=== PATIENT | male | born 1960 | race Caucasian/White ===

== ENCOUNTER 2021-09-10 06:35 | Outpatient (CLI) | payer MEDICARE, SELFPAY ==
--- NOTE | 2021-09-17 09:46 | WPDNEUROLOGY ---
Neurology EEG Report General Information Date of Study: 09/10/21 TEST eeg DIAGNOSIS Memory impairment CONDITION OF RECORDING awake drowsy and sleep EEG NUMBER [id number] CLINICAL HISTORY memory impairment EEG DESCRIPTION basic resting occipital frequency consists of low-voltage 8 to 9 hertz per 2nd alpha activity admixed with minimal amount of low-voltage 15 to 18 hertz per 2nd beta activity. Bilateral symmetrical sleep activity seen during sleep. Multiple movement artifacts are noted throughout the tracing. Hyperventilation not done. Photic stimulation produced normal drive. Non paroxysmal. Nonfocal. Nonlateralizing. IMPRESSION No significant abnormalities noted .
== END 2021-09-10 06:36 | disposition home or self-care (01) ==
PROVIDERS: PCP Internal Medicine; Visit Provider Psychiatry & Neurology Neurology
DX: R41.3 Other amnesia (principal)
CPT/HCPCS: 95816

== ENCOUNTER 2021-09-15 08:31 | Outpatient (CLI) | payer MEDICARE, SELFPAY ==
--- NOTE | ~2021-09-15 | MR_ITS ---
EXAMINATION: MR brain/brain stem wo/w con DATE: 09/17/2021 08:10 INDICATION: Memory impairment. Cerebral palsy. TECHNIQUE: Magnetic resonance imaging (MRI) of the brain and brainstem was performed without and with 14 mL MultiHance intravenous contrast. COMPARISON: None. FINDINGS: There are scattered areas of nonspecific increased T2-weighted signal intensity in the cere bral white matter, which is within normal limits for the patient's age. There is chronic encephalomal acia in anterior right frontal lobe. There is no intracranial hemorrhage, acute infarction, or abnorm al intracranial mass lesion. The ventricles are normal in size for the degree of diffuse brain volume loss. The orbits are normal. The paranasal sinuses are clear. The mastoid air cells are normal. IMPRESSION: 1. Chronic encephalomalacia in anterior right frontal lobe. Reviewed, dictated and finalized at location A.
== END 2021-09-15 08:32 | disposition home or self-care (01) ==
PROVIDERS: PCP Internal Medicine; Visit Provider Psychiatry & Neurology Neurology
DX: R41.3 Other amnesia (principal); G93.89 Other specified disorders of brain
CPT/HCPCS: 70553; A9577

== ENCOUNTER 2022-10-23 00:21 | Day surgery (SDC) | payer MEDICARE, MEDICAID, SELFPAY ==
[2022-10-15 12:24] VITALS: BMI 21.9
--- NOTE | 2022-10-22 18:09 | PM.HPGS ---
History of Present Illness History of Present Illness Consent: Risks, benefits, and alternatives have been discussed and questions answered. Patient agrees to proceed with procedure. Chief complaint: neoplasm screening Narrative: Jas Gutierrez Jr. is a 61 year old male Referred for colon cancer screening. Review of Systems Review of Systems: All systems reviewed & are unremarkable except as noted in HPI and below PMFSH Past Medical History Medical History Benign prostatic hyperplasia Cerebral palsy Depression Diabetes mellitus, type II GERD (gastroesophageal reflux disease) Heart disease Hyperlipidemia Hypertension Hypothyroidism Social History Social History Social History: never smoker Smoking status: Never smoker Alcohol intake: never Substance use: never Substance use type: does not use Lack of Transportation: No Lack of Food: Never True Current Housing: I Have Housing Concerned About Future Housing: No Difficulty Paying Gas/Electric Bills: No Difficulty Paying for Meds: No Currently Unemployed: No Education: High School Diploma/GED Difficulty w/ Childcare or Family Care: No Living arrangements: with family Spiritual care concerns: No Meds Home Medications and Allergies Home Medications Medication Instructions Recorded Confirmed Type atorvastatin 80 mg tablet 80 mg PO DAILY 08/21/21 10/15/22 History clopidogrel 75 mg tablet 75 mg PO DAILY 08/21/21 10/15/22 History divalproex 500 mg tablet,extended 500 mg PO DAILY 08/21/21 10/15/22 History release 24 hr empagliflozin 10 mg tablet 10 mg PO DAILY 08/21/21 10/15/22 History (Jardiance) ezetimibe 10 mg tablet 10 mg PO DAILY 08/21/21 10/15/22 History finasteride 5 mg tablet 5 mg PO DAILY 08/21/21 10/15/22 History fluoxetine 40 mg capsule 40 mg PO DAILY 08/21/21 10/15/22 History lisinopril 5 mg tablet 5 mg PO DAILY 08/21/21 10/15/22 History metformin 500 mg tablet 500 mg PO BID 08/21/21 10/15/22 History nebivolol 5 mg tablet 5 mg PO DAILY 08/21/21 10/15/22 History olanzapine 5 mg tablet 5 mg PO DAILY 08/21/21 10/15/22 History pantoprazole 40 mg tablet,delayed 40 mg PO DAILY 08/21/21 10/15/22 History release levothyroxine 100 mcg tablet 100 mcg PO DAILY 10/15/22 10/15/22 History Allergies Allergy/AdvReac Type Severity Reaction Status Date / Time latex Allergy Intermediate Rash Verified 10/23/22 06:55 Exam Const: General: alert Orientation/consciousness: patient oriented x3 Resp: Auscultation: clear to auscultation bilaterally Cardio: Rhythm: regular rhythm GI: GI Palp: Yes Soft to palpation and No Tenderness to palpation present (GI) Neuro: General: patient oriented x3 Assessment and Plan Assessment and plan (1) Colon cancer screening: Code(s): Z12.11 - Encounter for screening for malignant neoplasm of colon Status: Acute Assessment and Plan: Colonoscopy with possible biopsy or polypectomy or cautery or injection of substances.
[2022-10-23 06:57] VITALS: BP 151/84; PULSE 65; RESP 18; TEMP 36; O2SAT 98
[2022-10-23] MEDS: LACTATED RINGERS 1,000 ML 150 ML IV CONT (07:09)
[2022-10-23 07:11] LABS: Glucose Point of Care 136 mg/dl (65-105)
--- NOTE | 2022-10-23 07:43 | WPDANESEPPF ---
Anes - Initial Pre Proc Eval Procedure: Operation Date: 10/23/22 08:00 Proposed Procedures p Screening Colonoscopy - Justin Castillo MD Date/Time: 10/23/22 07:43 Surgeon: Justin Castillo MD Pre Op Diagnosis: neoplasm screening Patient Data Age: 61 Gender: M Height: 1.7 m Weight: 65.8 kg Last Vital Signs Temp 36.0 C L 10/23/22 06:57 Pulse 65 10/23/22 06:57 Resp 18 10/23/22 06:57 BP 151/84 H 10/23/22 06:57 Pulse Ox 98 10/23/22 06:57 O2 Del Method Room Air 10/23/22 06:57 Allergies Allergy/AdvReac Type Severity Reaction Status Date / Time latex Allergy Intermediate Rash Verified 10/23/22 06:55 Home Medications Medication Instructions Recorded Confirmed Type atorvastatin 80 mg tablet 80 mg PO DAILY 08/21/21 10/15/22 History clopidogrel 75 mg tablet 75 mg PO DAILY 08/21/21 10/15/22 History divalproex 500 mg tablet,extended 500 mg PO DAILY 08/21/21 10/15/22 History release 24 hr empagliflozin 10 mg tablet 10 mg PO DAILY 08/21/21 10/15/22 History (Jardiance) ezetimibe 10 mg tablet 10 mg PO DAILY 08/21/21 10/15/22 History finasteride 5 mg tablet 5 mg PO DAILY 08/21/21 10/15/22 History fluoxetine 40 mg capsule 40 mg PO DAILY 08/21/21 10/15/22 History lisinopril 5 mg tablet 5 mg PO DAILY 08/21/21 10/15/22 History metformin 500 mg tablet 500 mg PO BID 08/21/21 10/15/22 History nebivolol 5 mg tablet 5 mg PO DAILY 08/21/21 10/15/22 History olanzapine 5 mg tablet 5 mg PO DAILY 08/21/21 10/15/22 History pantoprazole 40 mg tablet,delayed 40 mg PO DAILY 08/21/21 10/15/22 History release levothyroxine 100 mcg tablet 100 mcg PO DAILY 10/15/22 10/15/22 History Laboratory Tests 10/23/22 07:07 POC Capillary Glucose 136 H mg/dl (65-105) Patient hx anesthesia problems: none Family hx anesthesia problems: none Results Review: All pre-operative results and documents have been reviewed as part of the pre-operative evaluation. [facility] Past Medical History Medical History Benign prostatic hyperplasia Cerebral palsy Depression Diabetes mellitus, type II GERD (gastroesophageal reflux disease) Heart disease Hyperlipidemia Hypertension Hypothyroidism Social History Social History Social History: never smoker Smoking status: Never smoker Alcohol intake: never Substance use: never Substance use type: does not use Lack of Transportation: No Lack of Food: Never True Current Housing: I Have Housing Concerned About Future Housing: No Difficulty Paying Gas/Electric Bills: No Difficulty Paying for Meds: No Currently Unemployed: No Education: High School Diploma/GED Difficulty w/ Childcare or Family Care: No Living arrangements: with family Spiritual care concerns: No Anes - Eval Final PreProcedure Day of Procedure 10/23/22 07:43 Patient weight: normal Heart: regular rate and rhythm Lungs: clear to auscultation Airway: Mallampati scale class II Neurological: other (alert) Last oral intake: >/= 8 hours ASA classification: IV Emergent: no Anesthetic plan: proceed Anesthesia type and monitoring: general GIVS and standard monitoring Results Review: All pre-operative results and documents have been reviewed as part of the pre-operative evaluation. Informed Consent: The patient's anesthetic plan and its attendant risks and benefits were discussed with the patient/family/POA. Questions were solicited and answers provided to the satisfaction of the patient/family/POA.
[2022-10-23 08:09] VITALS: BP 93/68; PULSE 70; RESP 19; O2SAT 95
[2022-10-23 08:19] VITALS: BP 118/76; PULSE 74; RESP 19; O2SAT 96
[2022-10-23 08:29] VITALS: BP 140/84; PULSE 76; RESP 16; O2SAT 95
== END 2022-10-23 08:40 | disposition home or self-care (01) ==
PROVIDERS: PCP Internal Medicine; Visit Provider Internal Medicine Gastroenterology
PROC: 0DJD8ZZ Inspection of Lower Intestinal Tract, Via Natural or Artificial Opening Endoscopic (ICD-10-PCS; CPT 45378; principal; 2022-10-23 08:00)
DX: Z12.11 Encounter for screening for malignant neoplasm of colon (principal); E11.9 Type 2 diabetes mellitus without complications; E78.5 Hyperlipidemia, unspecified; E03.9 Hypothyroidism, unspecified; I11.9 Hypertensive heart disease without heart failure; K21.9 Gastro-esophageal reflux disease without esophagitis; G80.9 Cerebral palsy, unspecified; F32.A Depression, unspecified; N40.0 Benign prostatic hyperplasia without lower urinary tract symptoms; Z79.02 Long term (current) use of antithrombotics/antiplatelets; Z79.84 Long term (current) use of oral hypoglycemic drugs
CPT/HCPCS: G0121; 82948; J7120

== ENCOUNTER 2023-09-10 16:38 | Outpatient (CLI) | payer MEDICARE, MEDICAID, SELFPAY ==
--- NOTE | ~2023-09-10 | US_ITS ---
EXAMINATION: US carotid duplex BI DATE: 09/10/2023 17:11 INDICATION: Cerebral infarction TECHNIQUE: Grayscale, color Doppler, and pulsed Doppler images of the cervical carotid arteries were obtained. The degree of vessel stenosis is placed in one of the following categories: normal, <50%, 5 0-69%, >=70% but less than near-occlusion, near-occlusion, or total occlusion. Note that percent sten osis relative to normal distal artery lumen diameter is indirectly measured from velocity measurement s as described by Ang, et al. Radiology 2003; 229:340-346. COMPARISON: None. FINDINGS: RIGHT: The right common carotid artery (CCA) peak systolic velocity (PSV) is 78 cm/s. The right internal car otid artery (ICA) PSV is 63 cm/s. The right ICA end-diastolic velocity (EDV) is 26 cm/s. The right IC A/CCA PSV ratio is 0.8. Grayscale and color Doppler images yield an estimate of <50% diameter reducti on from plaque in the ICA. The external carotid artery (ECA) PSV is 73 cm/s. There is antegrade flow in the right vertebral artery. LEFT: The left CCA PSV is 75 cm/s. The left ICA PSV is 74 cm/s. The left ICA EDV is 23 cm/s. The left ICA/C CA PSV ratio is 1.0. Grayscale and color Doppler images yield an estimate of <50% diameter reduction from plaque in the ICA. The ECA PSV is 109 cm/s. There is antegrade flow in the left vertebral artery . IMPRESSION: 1. <50% stenosis in the right internal carotid artery. 2. <50% stenosis in the left internal carotid artery. Reviewed, dictated and finalized at location A.
== END 2023-09-10 16:39 | disposition home or self-care (01) ==
LOC: ANHIMG 16:38
PROVIDERS: PCP Internal Medicine; Visit Provider Psychiatry & Neurology Neurology
DX: I65.23 Occlusion and stenosis of bilateral carotid arteries (principal); I63.9 Cerebral infarction, unspecified; R26.9 Unspecified abnormalities of gait and mobility; R41.3 Other amnesia
CPT/HCPCS: 93880

== ENCOUNTER 2024-04-15 09:07 | Outpatient (CLI) | payer MEDICARE, MEDICAID, SELFPAY ==
--- OUTSIDE RECORDS SUMMARY | 2024-04-15 09:51 | XMS_ITS | Encounter Summary ---
Author Organization [facility] Healthcare Address [address] [place] [address] Care Team Providers Care Casing Splitter Name Role Phone Kade Pope MD Primary Care Provider Encounter Details Date Type Department Care Team (Late st Contact Info) Description 01/07/2020 Telephone [facility] Radiology [address] [place] [address] Michel Porras MD [address] [facility] [address] [place] [address] Social History Tobacco Use Types Packs/Day Years Used Date Smoking Tobacco: Never Smokeless Tobacco: Never Alcohol Use Standard Drinks/Week Comments No 0 (1 standard drink = 0.6 oz pur e alcohol) Sex and Gender Information Value Date Recorded Sex Assigned at Not on file Legal Sex Male 2:01 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
--- OUTSIDE RECORDS SUMMARY | 2024-04-15 09:52 | XMS_ITS | CONTINUITY OF CARE DOCUMENT ---
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 EF70, nl stress nuclear 07/24 active Milka White NP DIABETES MELLITUS completed - Yoana Salinas MD DIABETES MELLITUS, TYPE II, CONTROLLED W/ VASCULAR COMPLICATIONS completed - Yoana Salinas MD HTN essential--echo ef nl, 08/2022 active Yoana Salinas MD Sleep apnea - no CPAP due to psychiatric issues active Yoana Salinas MD Subarachnoid hemorrhage sec to trauma active Yoana Salinas MD Dementia active Yoana Salinas MD Diabetes mellitus active Yoana Salinas MD Aortic valve sclerosis active Yoana Salinas MD Prostate cancer active Luis Rodriguez Cardiology examination active Yusuf Todd Diabetes Mellitus, Type II, controlled w/ vascular complications completed - Yoana Salinas MD Preop exam completed - Yoana Salinas MD CHEST PAIN-06/16 CATHTOMAS Barrow ANOMOLOUS CIRC completed - Yoana Salinas MD HTN-03/25 ECHO EF 74 completed - Yoana Leslie CAD- Lad stent 2010. 40% MID,DISTAL RCA. EF70., nl stress nuclear 07/24 completed - Milka White NP ENCOUNTERS Date Type Provider Location Encounter Diag nosis - In-person encounter Office Visit Yoana Salinas MD [place] [facility] Cardiology examination - In-person encounter Office Visit Yoana Salinas MD [facility] - In-person encounter Office Visit Yoana Salinas MD [facility] HTN essential--echo ef nl, 08/2022 - In-person encounter Office Visit Yoana Salinas MD [facility] - In-person encounter Office Visit Yoana Salinas MD [facility] - In-person encounter Office Visit Yoana Salinas MD [facility] HTN essential--echo ef nl, 08/2022 - In-person encounter Office Visit Yoana Salinas MD [facility] HTN essential--echo ef nl, 08/2022 - In-person encounter Office Visit Yoana Salinas MD [facility] - In-person encounter Office Visit Yoana Salinas MD [facility] Prostate cancer - In-person encounter Office Visit Yoana Salinas MD [facility] Sleep apnea - no CPAP due to psychiatric issues - In-person encounter Office Visit Yoana Salinas MD [facility] - In-person encounter Office Visit Yoana Salinas MD [facility] Diabetes Mellitus, Type II, controlled w/ vascular complications - In-person encounter Office Visit Yoana Salinas MD [facility] DIABETES MELLITUS, TYPE II, CONTROLLED W/ VASCULAR COMPLICATIONSPreop examDiabetes mellitusAortic valve sclerosis - In-person encounter Office Visit Yoana Salinas MD [facility] CAD - LAD stent 2010, 40% MID,DISTAL RCA. EF70, nl stress nuclear 07/24 - In-person encounter Office Visit Yoana Salinas MD [facility] Subarachnoid hemorrhage sec to traumaDementia - In-person encounter Office Visit Yoana Salinas MD [facility] - In-person encounter Office Visit Yoana Salinas MD [facility] - In-person encounter Office Visit Yoana Salinas MD [facility] HTN-03/25 ECHO EF 74HypercholesterolemiaCAD-07/21 NUC EF 66 03/22 NUCCHEST PAIN-06/16 CATHDIFFUE DS ANOMOLOUS CIRCDIABETES MELLITUSHTN essential--echo ef nl, 08/2022Sleep apnea - no CPAP due to psychiatric issues - In-person encounter Office Visit Yoana Salinas MD [facility] - In-person encounter Office Visit Yoana Salinas MD [facility] - In-person encounter Office Visit Yoana Salinas MD [facility] - In-person encounter Office Visit Yoana Salinas MD [facility] - In-person encounter Office Visit Yoana Salinas MD [facility] - In-person encounter Office Visit Yoana Salinas MD [facility] - In-person encounter Office Visit Yoana Salinas MD [facility] - In-person encounter Office Visit Ariel Fam MD [facility] CAD - LAD stent 2010, 40% MID,DISTAL RCA. EF70, nl stress nuclear 07/24 - In-person encounter Office Visit Yoana Salinas MD [facility] - In-person encounter Office Visit Yoana Salinas MD [facility] - In-person encounter Office Visit Tirso Mccullough MD [facility] - In-person encounter Office Visit Yoana Salinas MD [facility] - In-person encounter Office Visit Yoana Salinas MD [facility] - In-person encounter Office Visit Yoana Salinas MD [facility] - In-person encounter Office Visit Yoana Salinas MD [facility] - In-person encounter Office Visit Tirso Mccullough MD [facility] Hypercholesterolemia - In-person encounter Office Visit Tirso Mccullough MD [facility] - In-person encounter Office Visit Yoana Salinas MD [facility] CAD- Lad stent 2010. 40% MID,DISTAL RCA. EF70., nl stress nuclear 07/24ANXIETY DISORDER GENERALIZEDHYPERTHYROIDISM VITAL SIGNS Date Observation Value Provider Body Mass Index (Ratio) 22.39 kg/m2 Yusuf Todd blood pressure, diastolic 85 mm[Hg] Edenilson Carrasquillo blood pressure, systolic 151 mm[Hg] Debra Carrasquillo oxygen saturation, oximetry 96 % Farzaneh Carrasquillo pulse rate 80 /min Farzaneh Carrasquillo respiratory rate E&M 12 /min Farzaneh Carrasquillo weight E&M 143 [lb_av] Farzaneh Carrasquillo height E&M 67 [in_i] Farzaneh Carrasquillo blood pressure, cuff size regular An anabella Carrasquillo Body Mass Index (Ratio) 22.55 kg/m2 Corona Salinas MD weight E&M 144 [lb_av] Linn [place] pulse rate 83 /min Linn [place] blood pressure, cuff size regular Amarjit bansal [place] blood pressure, diastolic 87 mm[Hg] Ta sharlaha [place] blood pressure, systolic 139 mm[Hg] Tab itha [place] oxygen saturation, oximetry 98 % Linn [place] respiratory rate E&M 12 /min Linn [place] height E&M 67 [in_i] [facility] Body Mass Index (Ratio) 21.92 kg/m2 [facility], cuff size regular [facility] blood pressure, diastolic 79 mm[Hg] [facility] blood pressure, systolic 140 mm[Hg] [facility] oxygen saturation, oximetry 96 % [facility] respiratory rate E&M 15 /min Jazmyne Dotson iller pulse rate 97 /min [facility] weight E&M 140 [lb_av] [facility] height E&M 67 [in_i] [facility] Body Mass Index (Ratio) 22.65 kg/m2 Corona Salinas MD blood pressure, diastolic 99 mm[Hg] [facility] blood pressure, systolic 142 mm[Hg] [facility] pulse rate 88 /min [facility] oxygen saturation, oximetry 97 % [facility] weight E&M 144.6 [lb_av] [facility] Body Mass Index (Ratio) 25.37 kg/m2 Corona Salinas MD blood pressure, diastolic 77 mm[Hg] Joel Barillas blood pressure, systolic 103 mm[Hg] Soraya Souzaelder blood pressure, cuff size regular Ke miah Stewarter oxygen saturation, oximetry 96 % Mariela Souzaelder respiratory rate E&M 14 /min Mariela beachnfelder pulse rate 76 /min Mariela Souzae lder weight E&M 162 [lb_av] Mariela Venturanenfe lder height E&M 67 [in_i] Mariela Romero er Body Mass Index (Ratio) 25.06 kg/m2 Corona Salinas MD blood pressure, cuff size large Stefanie williamle [place] blood pressure, diastolic 60 mm[Hg] Mi dave [place] blood pressure, systolic 140 mm[Hg] [facility] rajani [place] oxygen saturation, oximetry 97 % Salina Vivas respiratory rate E&M 16 /min Mahsa Vivas pulse rate 71 /min Salina leslie weight E&M 160 [lb_av] Salina leslie height E&M 67 [in_i] Salina leslie Body Mass Index (Ratio) 25.06 kg/m2 Trac darlin Sebastianly blood pressure, diastolic 80 mm[Hg] Li nkLogic blood pressure, systolic 110 mm[Hg] Porsche kLogic blood pressure, cuff size large Tr herb Mccain blood pressure, diastolic 80 mm[Hg] Tr herb Mccain blood pressure, systolic 110 mm[Hg] Try peterson Mccain oxygen saturation, oximetry 97 % Armando Mccain respiratory rate E&M 18 /min Trypeterson Mccain pulse rate 65 /min Trypeterson Mccain weight E&M 160 [lb_av] Armando Mccain height E&M 67 [in_i] Armando Mccain Body Mass Index (Ratio) 25.68 kg/m2 Corona Salinas MD blood pressure, diastolic 74 mm[Hg] Br dewey Em blood pressure, systolic 120 mm[Hg] Martha massiel Strickland weight E&M 164 [lb_av] Yoana Salinas MD height E&M 67 [in_i] Yoana Salinas MD Body Mass Index (Ratio) 25.84 kg/m2 Servando Rodriguez blood pressure, cuff size large Ke rri Lorenzonesophia blood pressure, diastolic 80 mm[Hg] Ke rri Irajuenerashinortheastern [facility] hospitalqu[facility] blood pressure, systolic 122 mm[Hg] Soraya Barillas oxygen saturation, oximetry 96 % Mariela Nargis respiratory rate E&M 16 /min Mariela Mia munoz pulse rate 73 /min Mariela Nick [facility] weight E&M 165 [lb_av] Mariela Nick [facility] height E&M 67 [in_i] Mariela Nick [facility] Body Mass Index (Ratio) 26.78 kg/m2 Taseamus Yang blood pressure, diastolic 88 mm[Hg] Rh imani Barber blood pressure, systolic 132 mm[Hg] Rho dinesh Barber oxygen saturation, oximetry 98 % Elsa Barber pulse rate 75 /min Elsadinesh Barber weight E&M 171 [lb_av] Elsafuad Barber blood pressure, cuff size regular Rh imani Barber temperature site temporal Yohana Tank sley temperature E&M 97.3 [degF] Yohana Tanks [place] respiratory rate E&M 16 /min Elsa Elisabeth height E&M 67 [in_i] Elsa Elisabeth Body Mass Index (Ratio) 27.56 kg/m2 Corona Salinas MD pulse rate 69 /min [facility] blood pressure, diastolic 88 mm[Hg] [facility] blood pressure, systolic 130 mm[Hg] Martha massiel Block oxygen saturation, oximetry 95 % [facility] weight E&M 176 [lb_av] [facility] respiratory rate E&M 16 /min [facility] height E&M 67 [in_i] [facility] Body Mass Index (Ratio) 28.35 kg/m2 Corona Salinas MD blood pressure, cuff size regular Cy jessica Perez blood pressure, diastolic 80 mm[Hg] Cy jessica Perez blood pressure, systolic 124 mm[Hg] Elaine ruthy Perez oxygen saturation, oximetry 97 % Eliza Perez respiratory rate E&M 16 /min Eliza Perez pulse rate 76 /min Eliza Lane l weight E&M 181 [lb_av] Eliza Horowitzbel l height E&M 67 [in_i] Eliza Horowitzbel l Body Mass Index (Ratio) 26.62 kg/m2 Blaire Hunter blood pressure, cuff size regular Ke rri Nargis blood pressure, diastolic 70 mm[Hg] Ke rri Irajuenesophia blood pressure, systolic 120 mm[Hg] Soraya Barillas oxygen saturation, oximetry 98 % Mariela Barillas respiratory rate E&M 18 /min Mariela munoz pulse rate 82 /min Mariela moreland weight E&M 170 [lb_av] Mariela Souzafatou [facility] height E&M 67 [in_i] Mariela Irajborismauricio [facility] Body Mass Index (Ratio) 26.15 kg/m2 Corona Salinas MD blood pressure, cuff size regular Ke rri Nargis blood pressure, diastolic 80 mm[Hg] Ke rri Gruenesophia blood pressure, systolic 130 mm[Hg] Soraya ri Nargis oxygen saturation, oximetry 97 % Mariela Nargis respiratory rate E&M 20 /min Mariela munoz pulse rate 63 /min Mariela Nick [facility] weight E&M 167 [lb_av] Mariela Irajabigaile [facility] height E&M 67 [in_i] Mariela Harleyfatou [facility] Body Mass Index (Ratio) 26.62 kg/m2 Corona Salinas MD blood pressure, resting Yes [facility] blood pressure, diastolic 90 mm[Hg] [facility], systolic 138 mm[Hg] Kil joseph Lovell oxygen saturation, oximetry 98 % [facility] rate E&M 16 /min [facility] pulse rate 76 /min [facility] weight E&M 170 [lb_av] [facility] height E&M 67 [in_i] Fabens Gonzalez Body Mass Index (Ratio) 25.84 kg/m2 Corona Salinas MD blood pressure, cuff size regular Ke rri Nargis blood pressure, diastolic 79 mm[Hg] Ke rri Nargis blood pressure, systolic 138 mm[Hg] Soraya Barillas oxygen saturation, oximetry 98 % Mariela Nargis respiratory rate E&M 16 /min Mariela Bellamy tammy pulse rate 63 /min Mariela Romero [facility] weight E&M 165 [lb_av] Mariela Romero [facility] height E&M 67 [in_i] Mariela Romero [facility] blood pressure, diastolic 98 mm[Hg] Tx kathie Lopez blood pressure, systolic 132 mm[Hg] Adrienne Lopez pulse rate 79 /min Ophelia Lopez respiratory rate E&M 16 /min Ophelia Lopez oxygen saturation, oximetry 95 % Ophelia Lopez Body Mass Index (Ratio) 26.34 kg/m2 Janay acosta John weight E&M 168.2 [lb_av] Ophelia Lopez Body Mass Index (Ratio) 26.94 kg/m2 Janay karla [facility] blood pressure, diastolic 107 mm[Hg] Tx kathie Silva blood pressure, systolic 175 mm[Hg] Adrienne morales Silva pulse rate 80 /min Ophelia Silva oxygen saturation, oximetry 98 % Ophelia Silva respiratory rate E&M 14 /min Ophelia Silva weight E&M 172 [lb_av] Ophelia Silva Body Mass Index (Ratio) 27.41 kg/m2 Anea [facility] blood pressure, diastolic 102 mm[Hg] An [facility], systolic 151 mm[Hg] Ane atris Brown pulse rate 90 /min Aneatris Brown oxygen saturation, oximetry 97 % Aneatris Brown respiratory rate E&M 18 /min Aneatri s Brown weight E&M 175 [lb_av] Aneatris Brown Body Mass Index (Ratio) 28.03 kg/m2 Anea dominguez Brown blood pressure, diastolic 105 mm[Hg] An eatris Brown blood pressure, systolic 155 mm[Hg] Ane atris Salazar pulse rate 81 /min Aneatris Brown oxygen saturation, oximetry 96 % Aneatris Brown respiratory rate E&M 18 /min Aneatri s Salazar weight E&M 179 [lb_av] Aneatris Salazar Body Mass Index (Ratio) 28.14 kg/m2 Janay acosta Silva blood pressure, diastolic 96 mm[Hg] Tx kathie Silva blood pressure, systolic 147 mm[Hg] Adrienne morales Silva pulse rate 70 /min Ophelia Silva oxygen saturation, oximetry 97 % Ophelia Silva respiratory rate E&M 14 /min Ophelia Silva weight E&M 179 [lb_av] Ophelia Silva Body Mass Index (Ratio) 29.17 kg/m2 Amy fuad Freeman blood pressure, diastolic 90 mm[Hg] Amarjit moser Lydia blood pressure, systolic 132 mm[Hg] Maurice olmos Lydia pulse rate 74 /min Cassie Lydia oxygen saturation, oximetry 97 % Cassie Freeman respiratory rate E&M 16 /min Cassie Barrow sonal weight E&M 185.6 [lb_av] Cassie Freeman blood pressure, diastolic 69 mm[Hg] Deacon Finney RN blood pressure, systolic 118 mm[Hg] Lorenzo Finney RN pulse rate 79 /min Lorenzo Finney RN oxygen saturation, oximetry 94 % Lorenzo Finney RN respiratory rate E&M 16 /min Lorenzo lam RN Body Mass Index (Ratio) 28.61 kg/m2 Lorenzo Finney RN weight E&M 182 [lb_av] Lorenzo Finney RN height E&M 67 [in_i] Lorenzo Finney RN blood pressure, diastolic 86 mm[Hg] Ke miah Barillas blood pressure, systolic 122 mm[Hg] Soraya ding Nargis pulse rate 82 /min Mariela Nick uriaser oxygen saturation, oximetry 94 % Mariela Nargis respiratory rate E&M 16 /min Mariela Bellamy tammy weight E&M 181.8 [lb_av] Mariela Harley hernandez blood pressure, diastolic 75 mm[Hg] De nyeajosh Morgan blood pressure, systolic 118 mm[Hg] Den yeedenilson Morgan pulse rate 77 /min Kostayean Morgan oxygen saturation, oximetry 94 % Kostayeedenilson Morgan respiratory rate E&M 16 /min Kostayean Morgan weight E&M 177 [lb_av] Kostayeedenilson Morgan oxygen saturation, oximetry 97 % Cintia Flores MA blood pressure, diastolic 94 mm[Hg] Farzaneh Flores MA blood pressure, systolic 151 mm[Hg] Eli Flores MA pulse rate 57 /min Cintia Flores MA respiratory rate E&M 16 /min Cintia Flores [place] weight E&M 171 [lb_av] Cintia Flores MA weight E&M 179 [lb_av] Yoana Salinas MD blood pressure, diastolic 65 mm[Hg] De zhangeajosh Morgan blood pressure, systolic 96 mm[Hg] Kosta Morgan pulse rate 65 /min Kostayeedenilson Morgan oxygen saturation, oximetry 97 % Kostayeedenilson Morgan respiratory rate E&M 16 /min Kostayean Morgan blood pressure, diastolic 79 mm[Hg] Deacon Finney RN blood pressure, systolic 129 mm[Hg] Lorenzo Finney RN pulse rate 68 /min Lorenzo Finney RN oxygen saturation, oximetry 95 % Lorenzo Finney RN respiratory rate E&M 16 /min Lorenzo lam RN weight E&M 180 [lb_av] Lorenzo Sharmin RN weight E&M 180 [lb_av] Lorenzo Deealexia CRUZ blood pressure, diastolic 75 mm[Hg] De robin Morgan blood pressure, systolic 119 mm[Hg] Kosta Morgan pulse rate 78 /min Kostayeedenilson Morgan oxygen saturation, oximetry 96 % Adamaris Morgan respiratory rate E&M 16 /min Kostayeedenilson Morgan blood pressure, diastolic 75 mm[Hg] De zhagneajosh FonsecaMorgan blood pressure, systolic 130 mm[Hg] Den rhys Morgan pulse rate 78 /min Kostayeedenilson Morgan oxygen saturation, oximetry 95 % Adamaris Morgan respiratory rate E&M 16 /min Kostayeedenilson Morgan weight E&M 182 [lb_av] Adamaris Morgan blood pressure, diastolic 85 mm[Hg] Deacon Finney RN blood pressure, systolic 141 mm[Hg] Lorenzo Finney RN pulse rate 86 /min Lorenzo Finney RN oxygen saturation, oximetry 96 % Lorenzo Finney RN respiratory rate E&M 16 /min Lorenzo lam RN weight E&M 179 [lb_av] Lorenzo Finney RN blood pressure, diastolic 83 mm[Hg] Ma doug O'Patel blood pressure, systolic 123 mm[Hg] Mar issa O'Patel pulse rate 76 /min Lexis O'Patel oxygen saturation, oximetry 95 % Lexis O'Patel respiratory rate E&M 18 /min Lexis O'Patel weight E&M 180 [lb_av] Lexis O'Patel oxygen saturation, oximetry 95 % Candice Francisco blood pressure, diastolic 74 mm[Hg] Danny Francisco blood pressure, systolic 117 mm[Hg] Pat michael weight E&M 180 [lb_av] Candice Nolan blood pressure, diastolic 71 mm[Hg] Edgar Ambriz blood pressure, systolic 114 mm[Hg] Dixon sims Pb pulse rate 77 /min Preethi Ambriz oxygen saturation, oximetry 94 % Preethi Ambriz respiratory rate E&M 18 /min Montana Ambriz weight E&M 178 [lb_av] Preethi Ambriz blood pressure, diastolic, right arm 81 m m[Hg] Roque Manacop blood pressure, systolic, right arm 119 m m[Hg] Roque [place] blood pressure, diastolic 81 mm[Hg] Latisha harrell [place] blood pressure, systolic 119 mm[Hg] Edis land [place] pulse rate 74 /min Roque [place] oxygen saturation, oximetry 96 % Roque [place] respiratory rate E&M 16 /min Roque [place] weight E&M 177 [lb_av] Roque [place] blood pressure, diastolic 86 mm[Hg] Deacon Finney RN blood pressure, systolic 131 mm[Hg] Lorenzo Finney RN pulse rate 106 /min Lorenzo Finney RN oxygen saturation, oximetry 100 % Lorenzo Finney RN respiratory rate E&M 20 /min Lorenzo lam RN weight E&M 166 [lb_av] Lorenzo Fniney RN ALLERGIES Allergy Name Onset Date Reaction Criticality Status LAYTEX Low Criticality active RESULTS Date Observation Value Provider Reference Range Interpretation Location blood glucose, random 278 mg/dL Caryl Frank urea nitrogen, blood 15 mg/dL Caryl Frank platelet count 241 10*3/mm3 Caryl Frank hematocrit, blood 46.3 % Caryl Frank thyroid stimulating hormone, serum 0.613 u[IU]/mL [facility] alanine aminotransferase (SGPT), serum 60 1/L [facility] aspartate aminotransferase (SGOT), serum 36 1/L [facility] creatinine, serum 1.02 mg/dL [facility] potassium, serum 4.4 mmol/L [facility] sodium, serum 142 mmol/L [facility] blood glucose, random 171 mg/dL [facility] platelet count 306 10*3/mm3 [facility] hematocrit, blood 45.4 % [facility] triglyceride, serum, fasting 104 mg/dL [facility] HDL cholesterol, serum 59 mg/dL [facility] lipoprotein, beta, serum, point, quantitative, calculated 71 mg/dL [facility] cholesterol, serum 151 mg/dL [facility] thyroid stimulating hormone, serum 9.450 u[IU]/mL [facility] B-type natriuretic peptide 8.6 pg/mL [facility] alanine aminotransferase (SGPT), serum 61 1/L [facility] aspartate aminotransferase (SGOT), serum 42 1/L [facility] creatinine, serum 0.94 mg/dL [facility] urea nitrogen, blood 17 mg/dL [facility] potassium, serum 4.7 mmol/L [facility] sodium, serum 142 mmol/L [facility] platelet count 309 10*3/mm3 [facility] hematocrit, blood 46.8 % [facility] triglyceride, serum, fasting 118 mg/dL [facility] HDL cholesterol, serum 60 mg/dL [facility] lipoprotein, beta, serum, point, quantitative, calculated 226 mg/dL [facility] cholesterol, serum 310 mg/dL [facility] alanine aminotransferase (SGPT), serum 43 1/L [facility] aspartate aminotransferase (SGOT), serum 28 1/L [facility] creatinine, serum 0.86 mg/dL [facility] potassium, serum 4.5 mmol/L [facility] sodium, serum 143 mmol/L [facility] platelet count 266 10*3/mm3 [facility] hematocrit, blood 44.7 % [facility] lipoprotein, beta, serum, point, quantitative, calculated 45 mg/dL [facility] cholesterol, serum 120 mg/dL [facility] international normalized ratio (INR) 1.0 [facility] alanine aminotransferase (SGPT), serum 62 1/L [facility] aspartate aminotransferase (SGOT), serum 41 1/L [facility] creatinine, serum 0.90 mg/dL [facility] potassium, serum 4.1 mmol/L [facility] sodium, serum 142 mmol/L [facility] hemoglobin A1C, blood, as % of total hemoglobin 6.7 % [facility] anion gap, serum 8.6 [facility] magnesium, serum 1.8 mg/dL [facility] calcium, serum 9.7 mg/dL [facility] creatine kinase, serum 99 1/L [facility] blood glucose, random 141 mg/dL [facility] estimated glomerular filtration rate >60 [facility] creatinine, serum 1.01 mg/dL [facility] urea nitrogen, blood 11.6 mg/dL [facility] carbon dioxide, venous blood 28 mmol/L [facility] chloride, serum 98 mmol/L [facility] potassium, serum 3.6 mmol/L [facility] sodium, serum 131 mmol/L [facility] erythrocyte sedimentation rate 6 mm/h [facility] platelet count 297 10*3/uL [facility] red blood cell distribution width 12.9 % [facility] mean corpuscular hemoglobin concentration, RBC 34.0 g/dL [facility] mean corpuscular hemoglobin, RBC 30.5 pg [facility] mean corpuscular volume, RBC 89.6 fL [facility] hematocrit, blood 43.2 % [facility] hemoglobin, blood 14.7 g/dL [facility] erythrocyte (RBC) count 4.82 10*6/mm3 [facility] leukocyte count, blood 8.1 10*3/mm3 [facility] thyroid stimulating hormone, serum 0.11 u[IU]/mL [facility] hemoglobin A1C, blood, as % of total hemoglobin 7.9 % [facility] triglyceride, serum, fasting 114 mg/dL [facility] HDL cholesterol, serum 46 mg/dL [facility] LDL cholesterol, serum 140 mg/dL [facility] cholesterol, serum 209 mg/dL [facility] hemoglobin A1C, blood, as % of total hemoglobin 8.2 % [facility] [facility] thyroid stimulating hormone, serum 9.59 u[IU]/mL [facility] globulins, serum, total 3.1 g/dL [facility] triiodothyronine (T3), serum 91 ng/dL [facility] thyroxine, serum, total 5.9 ug/dL [facility] estimated glomerular filtration rate >60 [facility] albumin/globulin ratio, serum 1.4 [facility] protein, total, serum 7.3 g/dL [facility] albumin, serum 4.2 g/dL [facility] bilirubin, serum, total 0.42 mg/dL [facility] alkaline phosphatase, serum 89 1/L [facility] alanine aminotransferase (SGPT), serum 60 1/L [facility] aspartate aminotransferase (SGOT), serum 32 1/L [facility] calcium, serum 9.2 mg/dL [facility] blood glucose, fasting 175 mg/dL [facility] creatinine, serum 0.94 mg/dL [facility] urea nitrogen, blood 15.3 mg/dL [facility] carbon dioxide, serum, total 30 mmol/L [facility] chloride, serum 101 mmol/L [facility] potassium, serum 4.2 mmol/L [facility] sodium, serum 137 mmol/L [facility] platelet count 295 10*3/uL [facility] red blood cell distribution width 13.1 % [facility] mean corpuscular hemoglobin concentration, RBC 33.9 g/dL [facility] mean corpuscular hemoglobin, RBC 31.3 pg [facility] mean corpuscular volume, RBC 92.2 fL [facility] hematocrit, blood 43.9 % [facility] hemoglobin, blood 14.9 g/dL [facility] erythrocyte (RBC) count 4.76 10*6/mm3 [facility] leukocyte count, blood 6.3 10*3/mm3 [facility] thyroid stimulating hormone, serum 0.07 u[IU]/mL [facility] triglyceride, serum, fasting 189 mg/dL [facility] HDL cholesterol, serum 45 mg/dL [facility] LDL cholesterol, serum 135 mg/dL [facility] cholesterol, serum 218 mg/dL [facility] globulins, serum, total 2.8 g/dL [facility] estimated glomerular filtration rate >60 [facility] anion gap, serum 10.0 [facility] albumin/globulin ratio, serum 1.4 [facility] protein, total, serum 6.8 g/dL [facility] albumin, serum 4.0 g/dL [facility] bilirubin, serum, total 0.60 mg/dL [facility] alkaline phosphatase, serum 102 1/L [facility] alanine aminotransferase (SGPT), serum 58 1/L [facility] aspartate aminotransferase (SGOT), serum 22 1/L [facility] calcium, serum 8.9 mg/dL [facility] blood glucose, fasting 131 mg/dL [facility] creatinine, serum 1.04 mg/dL [facility] urea nitrogen, blood 14.7 mg/dL [facility] carbon dioxide, serum, total 29 mmol/L [facility] chloride, serum 105 mmol/L [facility] potassium, serum 4.0 mmol/L [facility] sodium, serum 140 mmol/L [facility] albumin/globulin ratio, serum 1.4 [facility] protein, total, serum 6.7 g/dL [facility] albumin, serum 3.9 g/dL [facility] bilirubin, serum, total 0.70 mg/dL [facility] alkaline phosphatase, serum 120 1/L Estrellita Casa alanine aminotransferase (SGPT), serum 71 1/L [facility] aspartate aminotransferase (SGOT), serum 30 1/L [facility] calcium, serum 9.7 mg/dL Estrellita Casa blood glucose, fasting 112 mg/dL [facility] creatinine, serum 0.73 mg/dL Estrellita Casa urea nitrogen, blood 15 mg/dL [facility] carbon dioxide, serum, total 27 mmol/L [facility] chloride, serum 104 mmol/L [facility] potassium, serum 4.3 mmol/L [facility] sodium, serum 139 mmol/L [facility] triglyceride, serum, fasting 112 mg/dL [facility] HDL cholesterol, serum 39 mg/dL [facility] LDL cholesterol, serum 80 mg/dL Estrellita Casa cholesterol, serum 141 mg/dL Estrellita Cormier RN HISTORY OF MEDICATION USE Medication Status Instructions Dates Provider Indications Com ments atorvastatin 80 mg tablet active TAKE 1 TABLET BY MOUTH EVERY DAY Susan Mcgee atorvastatin 80 mg tablet completed Take 1 tablet by mouth once a day - Susan Mcgee ezetimibe 10 mg tablet completed Take 1 tablet by mouth once a day - Yusuf Todd atorvastatin 80 mg tablet completed TAKE 1 TABLET BY MOUTH EVERY DAY - Mariela Barillas nebivolol 5 mg tablet completed TAKE 1 TABLET BY MOUTH EVERY DAY - Melissa Mueller ezetimibe 10 mg tablet completed TAKE 1 TABLET BY MOUTH EVERY DAY - Mariela Barillas clopidogrel 75 mg tablet active TAKE 1 TABLET BY MOUTH EVERY DAY DIRECTED Linn Kelly metformin 500 mg tablet active twice a day Melissa Mueller pantoprazole 40 mg tablet,delayed release (DR/EC) active Yusuf Todd Jardiance 10 mg tablet active Take 1 tablet by mouth once a day Yusuf Todd clopidogrel 75 mg tablet completed TAKE 1 TABLET BY MOUTH EVERY DAY - Maryellen Pierson clopidogrel 75 mg tablet completed Take 1 tablet by mouth once a day as directed - Lorenzo Finney RN Depakote 500 mg tablet,delayed release (DR/EC) active take one pill at bedtime Mariela Barillas lisinopril 5 mg tablet completed 1 tablet by mouth once a day - Melissa Mueller finasteride 5 mg tablet active Take 1 by mouth every night Mariela Barillas NAMZARIC 14-10 MG ORAL CAPSULE EXTENDED RELEASE 24 HOUR completed take one pill in the am - Mariela Barillas CRESTOR 40 MG ORAL TABLET completed ONE TAB. DAILY - Suzanna Mora RN ezetimibe 10 mg tablet completed Take 1 tablet by mouth once a day - Maryellen Pierson Bystolic 5 mg tablet completed 1 tablet by mouth once a day - Maryellen Pierson Zyprexa 5 mg tablet active 1 tablet by mouth once a day Lorenzo Finney RN VIIBRYD 40 MG ORAL TABLET completed once daily - Mariela Barillas FLOMAX 0.4 MG ORAL CAPSULE completed once daily - Mariela Barlilas OLANZAPINE 5 MG ORAL TABLET completed 1/2 tab twice daily - Mariela Barillas atorvastatin 80 mg tablet completed Take 1 tablet by mouth once a day - Yusuf Todd glimepiride 1 mg tablet active Take 1 by mouth once a day as needed Yusuf Todd LOVAZA CAPSULE completed 2 caps at bedtime - Yoana Salinas MD Ranexa 500 mg tablet extended release 12 hr completed 1 tablet by mouth twice a day - Yusuf Todd LOVAZA CAPS 2GM (AWFVZ-1-ANTE ETHYL ESTERS CAPS) completed DAILY - Lorenzo Finney RN NIASPAN 500 MG ORAL TABLET EXTENDED RELEASE completed AT BEDTIME - Cintia Flores MA clopidogrel 75 mg tablet completed 1 tablet by mouth once a day - Lorenzo Finney RN lorazepam 0.5 mg tablet completed 1 tablet by mouth twice a day as needed - Yusuf Cummingstorreycorrina SIMVASTATIN 40 MG ORAL TABLET completed 1 tablet by mouth daily - Lorenzo Finney RN levothyroxine 100 mcg tablet active tablet by mouth once a day Yusuf Todd ZETIA 10 MG ORAL TABLET completed 1 tablet by mouth daily - Yoana Salinas MD BYSTOLIC 5 MG ORAL TABLET completed ONE TAB PO DAILY - Yoana Salinas MD ASPIRIN 81 MG ORAL TABLET completed 1 tablet by mouth daily - Yoana Salinas MD fluoxetine 40 mg capsule active Take 1 by mouth once a day Mariela Barillas ISOSORBIDE DINITRATE 30 MG ORAL TABLET completed QD - Sloane Tobin RN SIMVASTATIN 40 MG ORAL TABLET completed ONE TAB. DAILY - Sloane Tboin RN ZETIA 10 MG ORAL TABLET completed ONE TAB. DAILY - Sloane Tobin RN SOCIAL HISTORY Date Observation Value Provider drug use none [facility] Never smoker [facility] Yusuftoyin Michael drug use [facility] Never smoker Yusuf Michael physical exercise, f requency, days per week yes Melissa Abbottfatou caffeine use, averag e drinks per day yes Melissa Abbottfatou smoking status Never smoker Melissa Abbottfatou social history E&M Marital Statu s: L manny with family/friends E thnicity: Smoking History: P atient has never smoked. Yoana Salinas MD social history reviewed E&M revi ewed - no changes required Melissa Mueller social history E&M Marital Statu s: L manny with family/friends E thnicity: Smoking History: P peter has never smoked. Yusuf Todd physical exercise, f requency, days per week yes Mariela Nargis caffeine use, averag e drinks per day yes Mariela Nargis smoking status Never smoker Mariela Mayers priscilla social history reviewed E&M revi ewed - no changes required Yoana Salinas MD social history E&M Marital Statu s: L manny with family/friends E thnicity: Smoking History: P peter has never smoked. Yusuf Todd physical exercise, f requency, days per week yes Salina Vivas caffeine use, averag e drinks per day yes Salina Vivas smoking status Never smoker Salina Napoles jhony social history reviewed E&M revi ewed - no changes required Yoana Salinas MD smoking status Never smoker Armando garg social history reviewed E&M revi ewed - no changes required Yusuf Todd social history reviewed E&M revi ewed - no changes required Deborah Strickland social history E&M Marital Statu s: L manny with family/friends E thnicity: Smoking History: P peter has never smoked. Luis Rodriguez social history reviewed E&M revi ewed - no changes required Luis Rodriguez physical exercise, f requency, days per week yes Mariela Nargis caffeine use, averag e drinks per day yes Mariela Nargis smoking status Never smoker Mariela Eliasjosh wells social history E&M Marital Statu s: L manny with family/friends E thnicity: Smoking History: P peter has never smoked. Yoana Salinas MD social history reviewed E&M revi ewed - no changes required Yuli Yang smoking status Never smoker Elsa Barber social history E&M Marital Statu s: L manny with family/friends E thnicity: Smoking History: P peter has never smoked. Yoana Salinas MD social history reviewed E&M revi ewed - no changes required Yoana Salinas MD physical exercise, f requency, days per week yes Deborah Little caffeine use, averag e drinks per day yes Deborah Little smoking status Never smoker Deborah [facility] rafat number of grandchildren Yoana Salinas MD T latha Salinas MD social history E&M Marital Statu s: L manny with family/friends E thnicity: Smoking History: P peter has never smoked. Yoana Salinas MD social history reviewed E&M revi ewed - no changes required Yoana Salinas MD physical exercise, f requency, days per week yes Yoana Salinas MD alcohol use, average drinks per day none Yoana Salinas MD caffeine use, averag e drinks per day yes Yoana Salinas MD drug use none Yoana Salinas MD smoking status Never smoker Yoana Salinas MD social history reviewed E&M revi ewed - no changes required Yoana Salinas MD smoking status Never smoker Mariela wells physical exercise, f requency, days per week yes Mariela Barillas alcohol use, average drinks per day none Mariela Barlilas caffeine use, averag e drinks per day yes Mariela Barillas drug use none Mariela moreland social history reviewed E&M revi ewed - no changes required Yoana Salinas MD physical exercise, f requency, days per week yes Mariela Barillas alcohol use, average drinks per day none Mariela Barillas caffeine use, averag e drinks per day yes Mariela Barillas drug use none Mariela Romero bridgett smoking status Never smoker Mariela wells physical exercise, f requency, days per week yes [facility] alcohol use, average drinks per day none [facility] caffeine use, averag e drinks per day yes [facility] drug use none [facility] smoking status Never smoker [facility] social history reviewed E&M revi ewed - no changes required Yoana Salinas MD physical exercise, f requency, days per week yes Mariela Souzacarriequan alcohol use, average drinks per day none Mariela Barillas caffeine use, averag e drinks per day yes Mariela Barillas drug use none Mariela Romero [facility] smoking status Never smoker Mariela wells social history reviewed E&M revi ewed - no changes required Ophelia Lopez physical exercise, f requency, days per week yes Ophelia Lopez alcohol use, average drinks per day none Opheila Lopez caffeine use, averag e drinks per day yes Ophelia John drug use none Ophelia John smoking status Never smoker Ophelia Lopez social history reviewed E&M revi ewed - no changes required Yoana Salinas MD physical exercise, f requency, days per week yes Ophelia Silva alcohol use, average drinks per day none Ophelia Silva caffeine use, averag e drinks per day yes Ophelia Silva drug use none Ophelia Silva smoking status Never smoker Ophelia moreno social history reviewed E&M revcorrina ewed - no changes required Antoine Lincoln social history reviewed E&M regan ewed - no changes required Yoana Salinas MD social history reviewed E&M reviewed Yoana Salinas MD social history reviewed E&M reviewed Yoana Salinas MD social history reviewed E&M reviewed Lorenzo Finney RN smoking status never smoker Roque Janelawanda liriano social history reviewed E&M reviewed Lorenzo Finney RN social history reviewed E&M reviewed Yoana Salinas MD social history reviewed E&M reviewed Ariel Fam MD drug use none Yoana Salinas MD social history reviewed E&M reviewed Yoana Salinas MD social history reviewed E&M reviewed Lorenzo Finney RN social history reviewed E&M reviewed Lorenzo Finney RN social history reviewed E&M reviewed Lorenzo Finney RN social history reviewed E&M reviewed Lorenzo Finney RN social history reviewed E&M reviewed Lorenzo Finney RN social history reviewed E&M reviewed Tirso Mccullough MD social history reviewed E&M reviewed Lorenzo Finney RN social history E&M Marital Statu s: L manny with family/friends E thnicity: Sloane Tobin RN social history reviewed E&M reviewed Sloane Tobin RN physical exercise, f requency, days per week yes [employer] caffeine use, averag e drinks per day yes [employer] alcohol use, average drinks per day none [employer] smoking status Non-smoker [employer] FUNCTIONAL STATUS Date Observation Value Provider HRA, CV Assess/Plan, Angina (inactive) Management Plan continue current therapy Yusuf Todd HRA, CV Assess/Plan, Angina (inactive) Management Plan continue current therapy Yusuf Todd HRA, CV Assess/Plan, Angina (inactive) Management Plan continue current therapy Yusuf Ahmedzai HRA, CV Assess/Plan, Angina (inactive) Management Plan continue current therapy Yusuf Ahmedzai HRA, CV Assess/Plan, Angina (inactive) Management Plan continue current therapy Yusuf Ahmedzai HRA, CV Assess/Plan, Angina (inactive) Management Plan continue current therapy Deborah Strickland HRA, CV Assess/Plan, Angina (inactive) Management Plan continue current therapy Luis Cormierjak HRA, CV Assess/Plan, Angina (inactive) Management Plan continue current therapy Yuli Yang HRA, CV Assess/Plan, Angina (inactive) Management Plan continue current therapy Yoana Salinas MD HRA, CV Assess/Plan, Angina (inactive) Management Plan continue current therapy Yoana Salinas MD HRA, CV Assess/Plan, Angina (inactive) Management Plan continue current therapy Yoana Salinas MD HRA, CV Assess/Plan, Angina (inactive) Management Plan continue current therapy Yoana Salinas MD HRA, CV Assess/Plan, Angina (inactive) Management Plan continue current therapy Yoana Salinas MD HRA, CV Assess/Plan, Angina (inactive) Management Plan continue current therapy Yoana Salinas MD MENTAL STATUS Date Observation Value Provider assessment of judgme nt and insight E&M Alert and oriented to time, place and person. Mood and affect are normal. Yoana Salinas MD assessment of judgme nt and insight E&M Alert and oriented to time, place and person. Mood and affect are normal. Yoana Salinas MD assessment of judgme nt and insight E&M Alert and oriented to time, place and person. Mood and affect are normal. Lorenzo Finney RN assessment of judgme nt and insight E&M Alert and oriented to time, place and person. Mood and affect are normal. Lorenzo Finney RN assessment of judgme nt and insight E&M Alert and oriented to time, place and person. Mood and affect are normal. Yoana Salinas MD assessment of judgme nt and insight E&M Alert and oriented to time, place and person. Mood and affect are normal. Ariel Fam MD assessment of judgme nt and insight E&M Alert and oriented to time, place and person. Mood and affect are normal. Yoana Salinas MD assessment of judgme nt and insight E&M Alert and oriented to time, place and person. Mood and affect are normal. Yoana Salinas MD assessment of judgme nt and insight E&M Alert and oriented to time, place and person. Mood and affect are normal. Lorenzo Finney RN assessment of judgme nt and insight E&M Alert and oriented to time, place and person. Mood and affect are normal. Lorenzo Finney RN assessment of judgme nt and insight E&M Alert and oriented to time, place and person. Mood and affect are normal. Lorenzo Finney RN assessment of judgme nt and insight E&M Alert and oriented to time, place and person. Mood and affect are normal. Lorenzo Finney RN assessment of judgme nt and insight E&M Alert and oriented to time, place and person. Mood and affect are normal. Lorenzo Finney RN assessment of judgme nt and insight E&M Alert and oriented to time, place and person. Mood and affect are normal. Tirso Mccullough MD assessment of judgme nt and insight E&M Alert and oriented to time, place and person. Mood and affect are normal. Lorenzo Finney RN assessment of judgme nt and insight E&M Alert and oriented to time, place and person. Mood and affect are normal. Sloane Tobin RN FAMILY HISTORY Family Member Condition Mother Family History Unkno wn Father Family History of Co ronary Artery Disease: Father Family History of Di abetes: INSURANCE PROVIDERS Payer name Policy type / Coverage type Michelle red constitution party ID AARP [facility] ADVANTAGE PLAN 2 (HMO-POS) Medicare [id number] HEALTHCARE AND FAMILY SERVICES Medicaid 3 [id number] ADVANCE DIRECTIVES Name Date DISCUSSED - NO DECISION MADE TREATMENT PLAN Date Name Performer [id number], Yoana Salinas MD [id number],C, Yoana Salinas MD [id number],B, Yoana Salinas MD [id number],S, Yoana Salinas MD [id number],B, Yoana Salinas MD [id number],B, Yoana Salinas MD [id number],S, Yusuf Ahmedza i [id number],S, Yusuf Ahmedza i [id number],S, Yusuf Ahmedza i [id number],S, Yusuf Ahmedza i [id number],S, Yusuf Ahmedza i [id number],S, Yusuf Ahmedza i [id number],S, Yusuf Ahmedza i [id number],S, Yusuf Ahmedza i [id number],S, Yusuf Ahmedza i [id number],S, Yusuf Ahmedza i [id number],S, Yusuf Ahmedza i [id number],S, Yusuf Ahmedza i [id number],S, Yusuf Ahmedza i [id number],S, Yusuf Ahmedza i [id number],S, Yusuf Ahmedza i [id number],S, Yusuf Ahmedza i Cardiology Yoana Salinas MD Cardiology: T he following medications were removed from the medication list: Ezetimibe 10 Mg Tablet (Ezetimibe) ..... Take 1 tablet by mouth once a day His updated medication list for this problem includes: Atorvastatin 80 Mg Tablet (Atorvastatin) ..... Take 1 tablet by mouth once a day Yoana Salinas MD Cardiology Yoana Salinas MD Cardiology Yoana Salinas MD Cardiology: H is updated medication list for this problem includes: Glimepiride 1 Mg Tablet (Glimepiride) ..... Take 1 by mouth once a day as needed Metformin 500 Mg Tablet (Metformin) ..... Twice a day Jardiance 10 Mg Tablet (Empagliflozin) ..... Take 1 tablet by mouth once a day Yoana Salinas MD Cardiology: B P today: 151/85 P rior BP: 139/87 (07/28/2023) Labs Reviewed: C reat: 1.02 (07/13/2013) C hol: 151 (03/16/2013) HDL: 59 (03/16/2013) LDL: 71 (03/16/2013) T (03/16/2013) Yoana Salinas MD Cardiology:This visi t has been a part of the consistent, comprehensive, and ongoing management of the chronic medical condition(s) listed above for the patient. His updated medication list for this problem includes: Clopidogrel 75 Mg Tablet (Clopidogrel) ..... Take 1 tablet by mouth every day as directed Yoana Salinas MD Cardiology Yusuf Todd Cardiology: H is updated medication list for this problem includes: Glimepiride 1 Mg Tablet (Glimepiride) ..... Take 1 by mouth once a day Metformin 500 Mg Tablet (Metformin) ..... Twice a day Jardiance 10 Mg Tablet (Empagliflozin) ..... Take 1 tablet by mouth once a day Yusuf Todd Cardiology Yusuf Todd Cardiology Yusuf Todd Cardiology: H is updated medication list for this problem includes: Clopidogrel 75 Mg Tablet (Clopidogrel) ..... Take 1 tablet by mouth every day as directed Yusuf Ahmedzai Cardiology Yusuf Ahmedzai Cardiology Yusuf Ahmedzai Cardiology Yusuf Ahmedzai Cardiology Yusuf Ahmedzai Cardiology Yusuf Ahmedzai Cardiology Yoana Salinas MD Cardiology Yoana Salinas MD Cardiology Yoana Salinas MD Cardiology Yoana Salinas MD Cardiology Yoana Salinas MD Cardiology Yoana Salinas MD Cardiology Yusuf Ahmedzai Cardiology Yusuf Ahmedzai Cardiology Yusuf Ahmedzai Cardiology Yusuf Ahmedzai Cardiology Yusuf Ahmedzai Cardiology Yusuf Ahmedzai Cardiology Yusuf Ahmedzai Cardiology Yusuf Ahmedzai Cardiology Yusuf Ahmedzai Cardiology Yusuf Ahmedzai Cardiology Yusuf Ahmedzai Cardiology Yusuf Ahmedzai Cardiology Yusuf Ahmedzai Cardiology Yusuf Ahmedzai Cardiology Yusuf Ahmedzai Cardiology Yusuf Ahmedzai Cardiology Follow up [facility] Follow up [facility] Follow up [facility] Follow up [facility] Follow up [facility] Yoana Salinas MD Cardiology Yoana Salinas MD Cardiology Yoana Salinas MD Cardiology Yoana Salinas MD Cardiology Yoana Salinas MD Cardiology Yoana Salinas MD Cardiology Yoana Salinas MD Cardiology Yoana Salinas MD Cardiology Tonerick Salinas MD Cardiology Toniamarilis Salinas MD Cardiology follow up Toniya Hadley werner MD Cardiology follow up Toniya Hadley werner MD Cardiology follow up Toniya Hadley werner MD Cardiology Follow up Toniya Hadley werner MD Cardiology Follow up Toniya Hadley werner MD Cardiology Follow up Toniya Hadley werner MD Cardiology Follow up Toniya Hadley werner MD Cardiology Follow up Toniya Hadley werner MD Cardiology Follow up Toniya Hadley werner MD Cardiology Follow up Toniya Hadley werner MD Cardiology Follow up Toniya Hadley werner MD Cardiology Follow up Toniya Hadley werner MD Cardiology Follow up Toniya Hadley werner MD Cardiology follow up Toniya Hadley werner MD Cardiology follow up Toniya Hadley werner MD Cardiology follow up Toniya Hadley werner MD Cardiology follow up Toniya Hadley werner MD Cardiology follow up Toniya Hadley werner MD Cardiology follow up Toniya Hadley werner MD Cardiology Follow up Toniya Hadley werner MD Cardiology Follow up Toniya Hadley werner MD Cardiology Follow up Toniya Hadley werner MD Cardiology Follow up Toniya Hadley werner MD Cardiology Follow up Toniya Hadley werner MD Cardiology Tonerick Salinas MD Cardiology Toniamarilis Salinas MD Cardiology Toniamarilis Salinas MD Cardiology Toniamarilis Salinas MD follow up: H is updated medication list for this problem includes: Crestor 40 Mg Tabs (Rosuvastatin calcium) ..... One tab. daily Zetia 10 Mg Tabs (Ezetimibe) ..... One tab. daily Aspirin 81 Mg Tabs (Aspirin) ..... 1 tablet by mouth daily Clopidogrel Bisulfate 75 Mg Tabs (Clopidogrel bisulfate) ..... 1 tablet by mouth daily Toprol Xl 50 Mg [id number] (Metoprolol succinate) ..... 1/2 tab daily Lipitor 40 Mg Tabs (Atorvastatin calcium) ..... One tab. daily Ranexa 500 Mg Ww12r-[id number] (Ranolazine) ..... One tablet twice daily Yoana Salinas MD follow up: H is updated medication list for this problem includes: Aspirin 81 Mg Tabs (Aspirin) ..... 1 tablet by mouth daily Glimepiride 1 Mg Tabs (Glimepiride) ..... 1/2 tab twice daily Yoana Salinas MD follow up: T he following medications were removed from the medication list: Bystolic 5 Mg Tabs (Nebivolol hcl) ..... One tab po daily His updated medication list for this problem includes: Aspirin 81 Mg Tabs (Aspirin) ..... 1 tablet by mouth daily Clopidogrel Bisulfate 75 Mg Tabs (Clopidogrel bisulfate) ..... 1 tablet by mouth daily Toprol Xl 50 Mg [id number]-[id number] (Metoprolol succinate) ..... 1/2 tab daily Ranexa 500 Mg [id number]-wim (Ranolazine) ..... One tablet twice daily Yoana Salinas MD follow up: H is updated medication list for this problem includes: Aspirin 81 Mg Tabs (Aspirin) ..... 1 tablet by mouth daily Glimepiride 1 Mg Tabs (Glimepiride) ..... 1 tab daily Yoana Salinas MD follow up: T he following medications were removed from the medication list: Bystolic 5 Mg Tabs (Nebivolol hcl) ..... One tab po daily His updated medication list for this problem includes: Aspirin 81 Mg Tabs (Aspirin) ..... 1 tablet by mouth daily Toprol Xl 50 Mg [id number] (Metoprolol succinate) ..... 1/2 tab daily BP today: 151/102 P rior BP: 155/105 (10/26/2013) Labs Reviewed: C reat: 1.02 (07/13/2013) C hol: 151 (03/16/2013) HDL: 59 (03/16/2013) LDL: 71 (03/16/2013) T (03/16/2013) Yoana Salinas MD follow up: T he following medications were removed from the medication list: Bystolic 5 Mg Tabs (Nebivolol hcl) ..... One tab po daily His updated medication list for this problem includes: Toprol Xl 50 Mg Sr98b-[id number] (Metoprolol succinate) ..... 1/2 tab daily Labs Reviewed: T SH: 0.613 (07/13/2013) Total T4: 5.9 (08/22/2010) Total T3: 91 (08/22/2010) Yoana Salinas MD Follow Up: H is updated medication list for this problem includes: Bystolic 5 Mg Tabs (Nebivolol hcl) ..... One tab po daily Aspirin 81 Mg Tabs (Aspirin) ..... 1 tablet by mouth daily B P today: 147/96 P rior BP: 132/90 (12/22/2012) Labs Reviewed: C reat: 0.94 (03/16/2013) C hol: 151 (03/16/2013) HDL: 59 (03/16/2013) LDL: 71 (03/16/2013) T (03/16/2013) Yoana Salinas MD Follow Up: H is updated medication list for this problem includes: Zetia 10 Mg Tabs (Ezetimibe) ..... 1 tablet by mouth daily Lovaza Caps (Vyoyg-9-xiuf ethyl esters caps) ..... 2 caps at bedtime Crestor 40 Mg Tabs (Rosuvastatin calcium) ..... One tab. daily BP today: 147/96 Prior BP: 132/90 (12/22/2012) C HOL: 151 (03/16/2013) LDL: 71 (03/16/2013) HDL: 59 (03/16/2013) T (03/16/2013) Yoana Salinas MD Follow Up: H is updated medication list for this problem includes: Bystolic 5 Mg Tabs (Nebivolol hcl) ..... One tab po daily Labs Reviewed: T SH: 9.450 (03/16/2013) Total T4: 5.9 (08/22/2010) Total T3: 91 (08/22/2010) Yoana Salinas MD Follow Up: H is updated medication list for this problem includes: Bystolic 5 Mg Tabs (Nebivolol hcl) ..... One tab po daily Aspirin 81 Mg Tabs (Aspirin) ..... 1 tablet by mouth daily Clopidogrel Bisulfate 75 Mg Tabs (Clopidogrel bisulfate) ..... 1 tablet by mouth daily Ranexa 500 Mg Xi64i-faq (Ranolazine) ..... One tablet twice daily BP today: 147/96 Prior BP: 132/90 (12/22/2012) N uclear Stress Findings: 1. Regadenoson mediated myocardial perfusion study 2 . Normal left ventricular systolic function with a calculated ejection fraction of 66%. 3 . No obvious significant scintigraphic evidence of myocardial ischemia or scar. 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 Moderate disease involving the circumflex and right coronary artery. Normal left ventricular wall motion and systolic function. EF 60%. - [facility] (12/13/2010) C ardiac Cath Comments: Successful 2.5 x 23mm Promus medicated stent implantation left anterior descending with no residual stenosis, dissection or thrombus formation. - [facility] (12/13/2010) C arotid Doppler/Duplex: Minimal plaque both carotid bifurication. Normal flow pattern. No significant change since 10/11/2009 study. [facility] (01/09/2011) C K: 99 (11/05/2010) CHOL: 151 (03/16/2013) LDL: 71 (03/16/2013) HDL: 59 (03/16/2013) T (03/16/2013) H gb: 14.7 (11/06/2010) HCT: 45.4 (03/16/2013) Platelets: 306 (03/16/2013) R BC: 4.82 (11/06/2010) WBC: 8.1 (11/06/2010) B UN: 17 (03/16/2013) Creat: 0.94 (03/16/2013) Glucose: 171 (03/16/2013) N a+: 142 (03/16/2013) K+: 4.7 (03/16/2013) Cl: 98 (11/05/2010) INR: 1.0 (08/20/2011) T SH: 9.450 (03/16/2013) T3 (total): 91 (08/22/2010) T4 (total): 5.9 (08/22/2010) Yoana Salinas MD Follow Up: H is updated medication list for this problem includes: Aspirin 81 Mg Tabs (Aspirin) ..... 1 tablet by mouth daily Glimepiride 1 Mg Tabs (Glimepiride) ..... 1 tab daily Yoana Salinas MD Follow Up: H is updated medication list for this problem includes: Zetia 10 Mg Tabs (Ezetimibe) ..... 1 tablet by mouth daily Lovaza Caps (Poxip-8-wwqk ethyl esters caps) ..... 2 caps at bedtime Crestor 40 Mg Tabs (Rosuvastatin calcium) ..... One tab. daily BP today: 132/90 Prior BP: 118/69 (03/24/2012) C HOL: 310 (05/06/2012) LDL: 226 (05/06/2012) HDL: 60 (05/06/2012) T (05/06/2012) Yoana Salinas MD Follow Up: H is updated medication list for this problem includes: Zetia 10 Mg Tabs (Ezetimibe) ..... 1 tablet by mouth daily Bystolic 5 Mg Tabs (Nebivolol hcl) ..... One tab po daily Aspirin 81 Mg Tabs (Aspirin) ..... 1 tablet by mouth daily Clopidogrel Bisulfate 75 Mg Tabs (Clopidogrel bisulfate) ..... 1 tablet by mouth daily Ranexa 500 Mg Tb12 (Ranolazine) ..... Half tab. twice daily for chronic angina Lovaza Caps (Qncuo-3-wesm ethyl esters caps) ..... 2 caps at bedtime Crestor 40 Mg Tabs (Rosuvastatin calcium) ..... One tab. daily Yoana Salinas MD Follow Up: H is updated medication list for this problem includes: Bystolic 5 Mg Tabs (Nebivolol hcl) ..... One tab po daily Aspirin 81 Mg Tabs (Aspirin) ..... 1 tablet by mouth daily Clopidogrel Bisulfate 75 Mg Tabs (Clopidogrel bisulfate) ..... 1 tablet by mouth daily Ranexa 500 Mg Tb12 (Ranolazine) ..... Half tab. twice daily for chronic angina BP today: 132/90 Prior BP: 118/69 (03/24/2012) N uclear Stress Findings: 1. Regadenoson mediated myocardial perfusion study 2 . Normal left ventricular systolic function with a calculated ejection fraction of 66%. 3 . No obvious significant scintigraphic evidence of myocardial ischemia or scar. 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 Moderate disease involving the circumflex and right coronary artery. Normal left ventricular wall motion and systolic function. EF 60%. - [facility] (12/13/2010) C ardiac Cath Comments: Successful 2.5 x 23mm Promus medicated stent implantation left anterior descending with no residual stenosis, dissection or thrombus formation. - [facility] (12/13/2010) C arotid Doppler/Duplex: Minimal plaque both carotid bifurication. Normal flow pattern. No significant change since 10/11/2009 study. [facility] (01/09/2011) C K: 99 (11/05/2010) CHOL: 310 (05/06/2012) LDL: 226 (05/06/2012) HDL: 60 (05/06/2012) T (05/06/2012) H gb: 14.7 (11/06/2010) HCT: 46.8 (05/06/2012) Platelets: 309 (05/06/2012) R BC: 4.82 (11/06/2010) WBC: 8.1 (11/06/2010) B UN: 11.6 (11/05/2010) Creat: 0.86 (05/06/2012) Glucose: 141 (11/05/2010) N a+: 143 (05/06/2012) K+: 4.5 (05/06/2012) Cl: 98 (11/05/2010) INR: 1.0 (08/20/2011) T SH: 0.11 (10/11/2010) T3 (total): 91 (08/22/2010) T4 (total): 5.9 (08/22/2010) Yoana Salinas MD Follow Up: H is updated medication list for this problem includes: Aspirin 81 Mg Tabs (Aspirin) ..... 1 tablet by mouth daily Glimepiride 1 Mg Tabs (Glimepiride) ..... 1 tab daily & #13;BP today: 132/90 Prior BP: 118/69 (03/24/2012) Labs Reviewed: H gBA1c: 6.7 (02/13/2011) Creat: 0.86 (05/06/2012) Yoana Salinas MD routine: H is updated medication list for this problem includes: Bystolic 5 Mg Tabs (Nebivolol hcl) ..... One tab po daily Labs Reviewed: T SH: 0.11 (10/11/2010) Total T4: 5.9 (08/22/2010) Total T3: 91 (08/22/2010) Orders: C OMPREHENSIVE METABOLIC PANEL W/EGFR (97417) C BC (INCLUDES DIFF/PLT) (6399) L IPID PANEL (6500) H EMOGLOBIN A1c (496) Yoana Salinas MD routine: H is updated medication list for this problem includes: Zetia 10 Mg Tabs (Ezetimibe) ..... 1 tablet by mouth daily Bystolic 5 Mg Tabs (Nebivolol hcl) ..... One tab po daily Aspirin 81 Mg Tabs (Aspirin) ..... 1 tablet by mouth daily Clopidogrel Bisulfate 75 Mg Tabs (Clopidogrel bisulfate) ..... 1 tablet by mouth daily Ranexa 500 Mg Tb12 (Ranolazine) ..... One tab. twice daily for chronic angina Lovaza Caps (Givob-8-yjzd ethyl esters caps) ..... 2 caps at bedtime Crestor 40 Mg Tabs (Rosuvastatin calcium) ..... One tab. daily Orders: C omplete Echo (CPT-21098) C OMPREHENSIVE METABOLIC PANEL W/EGFR (07794) C BC (INCLUDES DIFF/PLT) (6399) L IPID PANEL (7600) H EMOGLOBIN A1c (496) Yoana Salinas MD routine: H is updated medication list for this problem includes: Bystolic 5 Mg Tabs (Nebivolol hcl) ..... One tab po daily Aspirin 81 Mg Tabs (Aspirin) ..... 1 tablet by mouth daily Clopidogrel Bisulfate 75 Mg Tabs (Clopidogrel bisulfate) ..... 1 tablet by mouth daily Ranexa 500 Mg Tb12 (Ranolazine) ..... One tab. twice daily for chronic angina BP today: / Prior BP: 122/86 (09/17/2011) N uclear Stress Findings: 1. Regadenoson mediated myocardial perfusion study 2 . Normal left ventricular systolic function with a calculated ejection fraction of 66%. 3 . No obvious significant scintigraphic evidence of myocardial ischemia or scar. 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 Moderate disease involving the circumflex and right coronary artery. Normal left ventricular wall motion and systolic function. EF 60%. - [facility] (12/13/2010) C ardiac Cath Comments: Successful 2.5 x 23mm Promus medicated stent implantation left anterior descending with no residual stenosis, dissection or thrombus formation. - [facility] (12/13/2010) Carotid Doppler/Duplex: Minimal plaque both carotid bifurication. Normal flow pattern. No significant change since 10/11/2009 study. [facility] (01/09/2011) C K: 99 (11/05/2010) CHOL: 120 (08/20/2011) LDL: 45 (08/20/2011) HDL: 46 (11/22/2010) T (11/22/2010) H gb: 14.7 (11/06/2010) HCT: 44.7 (08/20/2011) Platelets: 266 (08/20/2011) R BC: 4.82 (11/06/2010) WBC: 8.1 (11/06/2010) BUN: 11.6 (11/05/2010) Creat: 0.90 (08/20/2011) Glucose: 141 (11/05/2010) N a+: 142 (08/20/2011) K+: 4.1 (08/20/2011) Cl: 98 (11/05/2010) INR: 1.0 (08/20/2011) T SH: 0.11 (10/11/2010) T3 (total): 91 (08/22/2010) T4 (total): 5.9 (08/22/2010) Orders: E KG (CPT-94916) C OMPREHENSIVE METABOLIC PANEL W/EGFR (34789) C BC (INCLUDES DIFF/PLT) (6399) L IPID PANEL (7600) H EMOGLOBIN A1c (496) Yoana Salinas MD routine Yoana Salinas MD routine: H is updated medication list for this problem includes: Bystolic 5 Mg Tabs (Nebivolol hcl) ..... One tab po daily Labs Reviewed: T SH: 0.11 (10/11/2010) Total T4: 5.9 (08/22/2010) Total T3: 91 (08/22/2010) Yoana Salinas MD routine: H is updated medication list for this problem includes: Zetia 10 Mg Tabs (Ezetimibe) ..... 1 tablet by mouth daily Bystolic 5 Mg Tabs (Nebivolol hcl) ..... One tab po daily Aspirin 81 Mg Tabs (Aspirin) ..... 1 tablet by mouth daily Clopidogrel Bisulfate 75 Mg Tabs (Clopidogrel bisulfate) ..... 1 tablet by mouth daily Ranexa 500 Mg Tb12 (Ranolazine) ..... One tab. twice daily for chronic angina Lovaza Caps (Sqzdt-2-gtre ethyl esters caps) ..... 2 caps at bedtime Crestor 40 Mg Tabs (Rosuvastatin calcium) ..... One tab. daily Yoana Salinas MD routine: H is updated medication list for this problem includes: Zetia 10 Mg Tabs (Ezetimibe) ..... 1 tablet by mouth daily Bystolic 5 Mg Tabs (Nebivolol hcl) ..... One tab po daily Aspirin 81 Mg Tabs (Aspirin) ..... 1 tablet by mouth daily Clopidogrel Bisulfate 75 Mg Tabs (Clopidogrel bisulfate) ..... 1 tablet by mouth daily Ranexa 500 Mg Tb12 (Ranolazine) ..... One tab. twice daily for chronic angina Lovaza Caps (Hyogn-1-axeu ethyl esters caps) ..... 2 caps at bedtime Crestor 40 Mg Tabs (Rosuvastatin calcium) ..... One tab. daily Yoana Salinas MD routine: H is updated medication list for this problem includes: Bystolic 5 Mg Tabs (Nebivolol hcl) ..... One tab po daily Aspirin 81 Mg Tabs (Aspirin) ..... 1 tablet by mouth daily Clopidogrel Bisulfate 75 Mg Tabs (Clopidogrel bisulfate) ..... 1 tablet by mouth daily Ranexa 500 Mg Tb12 (Ranolazine) ..... One tab. twice daily for chronic angina BP today: / Prior BP: 122/86 (09/17/2011) N uclear Stress Findings: 1. Regadenoson mediated myocardial perfusion study 2 . Normal left ventricular systolic function with a calculated ejection fraction of 66%. 3 . No obvious significant scintigraphic evidence of myocardial ischemia or scar. 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 Moderate disease involving the circumflex and right coronary artery. Normal left ventricular wall motion and systolic function. EF 60%. - [facility] (12/13/2010) C ardiac Cath Comments: Successful 2.5 x 23mm Promus medicated stent implantation left anterior descending with no residual stenosis, dissection or thrombus formation. - [facility] (12/13/2010) Carotid Doppler/Duplex: Minimal plaque both carotid bifurication. Normal flow pattern. No significant change since 10/11/2009 study. [facility] (01/09/2011) C K: 99 (11/05/2010) CHOL: 120 (08/20/2011) LDL: 45 (08/20/2011) HDL: 46 (11/22/2010) T (11/22/2010) H gb: 14.7 (11/06/2010) HCT: 44.7 (08/20/2011) Platelets: 266 (08/20/2011) R BC: 4.82 (11/06/2010) WBC: 8.1 (11/06/2010) BUN: 11.6 (11/05/2010) Creat: 0.90 (08/20/2011) Glucose: 141 (11/05/2010) N a+: 142 (08/20/2011) K+: 4.1 (08/20/2011) Cl: 98 (11/05/2010) INR: 1.0 (08/20/2011) T SH: 0.11 (10/11/2010) T3 (total): 91 (08/22/2010) T4 (total): 5.9 (08/22/2010) Orders: Fatou OCHOA (CPT-72713) Yoana Salinas MD routine: H is updated medication list for this problem includes: Aspirin 81 Mg Tabs (Aspirin) ..... 1 tablet by mouth daily Glimepiride 1 Mg Tabs (Glimepiride) ..... 1 tab daily Yoana Salinas MD follow up: H is updated medication list for this problem includes: Bystolic 5 Mg Tabs (Nebivolol hcl) ..... One tab po daily Yoana Salinas MD follow up: H is updated medication list for this problem includes: Zetia 10 Mg Tabs (Ezetimibe) ..... 1 tablet by mouth daily Bystolic 5 Mg Tabs (Nebivolol hcl) ..... One tab po daily Aspirin 81 Mg Tabs (Aspirin) ..... 1 tablet by mouth daily Plavix 75 Mg Tabs (Clopidogrel bisulfate) ..... One tab. daily Ranexa 500 Mg Tb12 (Ranolazine) ..... One tab. twice daily for chronic angina Lovaza Caps (Kfydh-5-ajxl ethyl esters caps) ..... 2 caps at bedtime Crestor 40 Mg Tabs (Rosuvastatin calcium) ..... One tab. daily Yoana Salinas MD follow up: H is updated medication list for this problem includes: Zetia 10 Mg Tabs (Ezetimibe) ..... 1 tablet by mouth daily Bystolic 5 Mg Tabs (Nebivolol hcl) ..... One tab po daily Aspirin 81 Mg Tabs (Aspirin) ..... 1 tablet by mouth daily Plavix 75 Mg Tabs (Clopidogrel bisulfate) ..... One tab. daily Ranexa 500 Mg Tb12 (Ranolazine) ..... One tab. twice daily for chronic angina Lovaza Caps (Safts-6-qpht ethyl esters caps) ..... 2 caps at bedtime Crestor 40 Mg Tabs (Rosuvastatin calcium) ..... One tab. daily Yoana Salinas MD follow up: H is updated medication list for this problem includes: Bystolic 5 Mg Tabs (Nebivolol hcl) ..... One tab po daily Aspirin 81 Mg Tabs (Aspirin) ..... 1 tablet by mouth daily Plavix 75 Mg Tabs (Clopidogrel bisulfate) ..... One tab. daily Ranexa 500 Mg Tb12 (Ranolazine) ..... One tab. twice daily for chronic angina Yoana Salinas MD follow up: H is updated medication list for this problem includes: Aspirin 81 Mg Tabs (Aspirin) ..... 1 tablet by mouth daily Glimepiride 1 Mg Tabs (Glimepiride) ..... 1 tab daily Yoana Salinas MD follow up: H is updated medication list for this problem includes: Metoprolol Succinate 50 Mg Xv12e-rrl (Metoprolol succinate) ..... 1 tab daily Labs Reviewed: T SH: 0.11 (10/11/2010) Total T4: 5.9 (08/22/2010) Total T3: 91 (08/22/2010) Yoana Salinas MD follow up: H is updated medication list for this problem includes: Zetia 10 Mg Tabs (Ezetimibe) ..... 1 tablet by mouth daily Metoprolol Succinate 50 Mg Vc72i-cje (Metoprolol succinate) ..... 1 tab daily Aspirin 81 Mg Tabs (Aspirin) ..... 1 tablet by mouth daily Plavix 75 Mg Tabs (Clopidogrel bisulfate) ..... One tab. daily Ranexa 500 Mg Tb12 (Ranolazine) ..... One tab. twice daily for chronic angina Lovaza Caps (Nrxvt-0-wuwp ethyl esters caps) ..... 2 caps at bedtime Crestor 40 Mg Tabs (Rosuvastatin calcium) ..... One tab. daily BP today: 118/75 Prior BP: 151/94 (01/07/2011) N uclear Stress Findings: 1. Regadenoson mediated myocardial perfusion study 2 . Normal left ventricular systolic function with a calculated ejection fraction of 66%. 3 . No obvious significant scintigraphic evidence of myocardial ischemia or scar. 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 Moderate disease involving the circumflex and right coronary artery. Normal left ventricular wall motion and systolic function. EF 60%. - [facility] (12/13/2010) C ardiac Cath Comments: Successful 2.5 x 23mm Promus medicated stent implantation left anterior descending with no residual stenosis, dissection or thrombus formation. - [facility] (12/13/2010) C arotid Doppler/Duplex: Minimal plaque both carotid bifurication. Normal flow pattern. No significant change since 10/11/2009 study. [facility] (01/09/2011) C K: 99 (11/05/2010) CHOL: 209 (11/22/2010) LDL: 140 (11/22/2010) HDL: 46 (11/22/2010) T (11/22/2010) H gb: 14.7 (11/06/2010) HCT: 43.2 (11/06/2010) RBC: 4.82 (11/06/2010) WBC: 8.1 (11/06/2010) B UN: 11.6 (11/05/2010) Creat: 1.01 (11/05/2010) Glucose: 141 (11/05/2010) N a+: 131 (11/05/2010) K+: 3.6 (11/05/2010) Cl: 98 (11/05/2010) TSH: 0.11 (10/11/2010) T3 (total): 91 (08/22/2010) T4 (total): 5.9 (08/22/2010) Yoana Salinas MD follow up: H is updated medication list for this problem includes: Metoprolol Succinate 50 Mg [id number]-[id number] (Metoprolol succinate) ..... 1 tab daily Aspirin 81 Mg Tabs (Aspirin) ..... 1 tablet by mouth daily Plavix 75 Mg Tabs (Clopidogrel bisulfate) ..... One tab. daily Ranexa 500 Mg Tb12 (Ranolazine) ..... One tab. twice daily for chronic angina Yoana Salinas MD follow up: H is updated medication list for this problem includes: Aspirin 81 Mg Tabs (Aspirin) ..... 1 tablet by mouth daily Glimepiride 1 Mg Tabs (Glimepiride) ..... 1 tab daily Yoana Salinas MD Hosp FU: H is updated medication list for this problem includes: Metoprolol Succinate 50 Mg Qb31s-dps (Metoprolol succinate) ..... 1 tab daily Aspirin 81 Mg Tabs (Aspirin) ..... 1 tablet by mouth daily Orders: C arotid Duplex Bilateral (CPT-13435) BP today: 151/94 P rior BP: 96/65 (11/20/2010) Labs Reviewed: C reat: 1.01 (11/05/2010) C hol: 209 (11/22/2010) HDL: 46 (11/22/2010) LDL: 140 (11/22/2010) T (11/22/2010) Ariel Fam MD Hosp FU: T he following medications were removed from the medication list: Niaspan 500 Mg Tbcr (Niacin (antihyperlipidemic)) ..... At bedtime His updated medication list for this problem includes: Zetia 10 Mg Tabs (Ezetimibe) ..... 1 tablet by mouth daily Lovaza Caps (Hgbly-9-zpoh ethyl esters caps) ..... Dispense as written Crestor 40 Mg Tabs (Rosuvastatin calcium) ..... One tab. daily BP today: 151/94 Prior BP: 96/65 (11/20/2010) C HOL: 209 (11/22/2010) LDL: 140 (11/22/2010) HDL: 46 (11/22/2010) T (11/22/2010) Ariel Fam MD Hosp FU: O rders: C arotid Duplex Bilateral (CPT-39987) Ariel Fam MD Hosp FU: O rders: C arotid Duplex Bilateral (CPT-38651) Ariel Fam MD Hosp FU: H is updated medication list for this problem includes: Metoprolol Succinate 50 Mg Wq12h-zif (Metoprolol succinate) ..... 1 tab daily Labs Reviewed: T SH: 0.11 (10/11/2010) Total T4: 5.9 (08/22/2010) Total T3: 91 (08/22/2010) Ariel Fam MD Hosp FU: H is updated medication list for this problem includes: Metoprolol Succinate 50 Mg Qs76t-vuo (Metoprolol succinate) ..... 1 tab daily Aspirin 81 Mg Tabs (Aspirin) ..... 1 tablet by mouth daily Plavix 75 Mg Tabs (Clopidogrel bisulfate) ..... One tab. daily Ranexa 500 Mg Tb12 (Ranolazine) ..... One tab. twice daily for chronic angina BP today: 151/94 Prior BP: 96/65 (11/20/2010) N uclear Stress Findings: 1. Regadenoson mediated myocardial perfusion study 2 . Normal left ventricular systolic function with a calculated ejection fraction of 66%. 3 . No obvious significant scintigraphic evidence of myocardial ischemia or scar. 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 Moderate disease involving the circumflex and right coronary artery. Normal left ventricular wall motion and systolic function. EF 60%. - [facility] (12/13/2010) C ardiac Cath Comments: Successful 2.5 x 23mm Promus medicated stent implantation left anterior descending with no residual stenosis, dissection or thrombus formation. - [facility] (12/13/2010) Carotid Doppler/Duplex: normal: (08/28/2006) C K: 99 (11/05/2010) CHOL: 209 (11/22/2010) LDL: 140 (11/22/2010) HDL: 46 (11/22/2010) T (11/22/2010) H gb: 14.7 (11/06/2010) HCT: 43.2 (11/06/2010) RBC: 4.82 (11/06/2010) WBC: 8.1 (11/06/2010) B UN: 11.6 (11/05/2010) Creat: 1.01 (11/05/2010) Glucose: 141 (11/05/2010) N a+: 131 (11/05/2010) K+: 3.6 (11/05/2010) Cl: 98 (11/05/2010) TSH: 0.11 (10/11/2010) T3 (total): 91 (08/22/2010) T4 (total): 5.9 (08/22/2010) E chocardiogram: Normal left ventricular systolic function. Normal left ventricular size. Normal left ventricular wall thickness. Left ventricular ejection fraction is estimated at 65%. No significant valvular abnormalities. GC (08/08/2010) Ariel Fam MD Hosp FU: H is updated medication list for this problem includes: Aspirin 81 Mg Tabs (Aspirin) ..... 1 tablet by mouth daily Glimepiride 1 Mg Tabs (Glimepiride) ..... 1 tab daily Orders: C arotid Duplex Bilateral (CPT-67893) BP today: 151/94 Prior BP: 96/65 (11/20/2010) Labs Reviewed: H gBA1c: 7.9 (10/11/2010) Creat: 1.01 (11/05/2010) Ariel Fam MD Hosp FU: T he following medications were removed from the medication list: Niaspan 500 Mg Tbcr (Niacin (antihyperlipidemic)) ..... At bedtime His updated medication list for this problem includes: Zetia 10 Mg Tabs (Ezetimibe) ..... 1 tablet by mouth daily Metoprolol Succinate 50 Mg [id number]-jrb (Metoprolol succinate) ..... 1 tab daily Aspirin 81 Mg Tabs (Aspirin) ..... 1 tablet by mouth daily Plavix 75 Mg Tabs (Clopidogrel bisulfate) ..... One tab. daily Ranexa 500 Mg Tb12 (Ranolazine) ..... One tab. twice daily for chronic angina Lovaza Caps (Xcjyi-3-aotb ethyl esters caps) ..... Dispense as written Crestor 40 Mg Tabs (Rosuvastatin calcium) ..... One tab. daily Ariel Fam MD follow up: H is updated medication list for this problem includes: Zetia 10 Mg Tabs (Ezetimibe) ..... 1 tablet by mouth daily Simvastatin 40 Mg Tabs (Simvastatin) ..... 1 tablet by mouth daily Niaspan 500 Mg Tbcr (Niacin (antihyperlipidemic)) ..... At bedtime Lovaza Caps (Kwbgh-3-wkno ethyl esters caps) ..... Dispense as written BP today: 96/65 Prior BP: 129/79 (08/21/2010) C HOL: 218 (08/30/2009) LDL: 135 (08/30/2009) HDL: 45 (08/30/2009) T (08/30/2009) Yoana Salinas MD follow up: H is updated medication list for this problem includes: Metoprolol Succinate 50 Mg Rm77b-wur (Metoprolol succinate) ..... 1 tab daily Labs Reviewed: T SH: 9.59 (08/22/2010) Total T4: 5.9 (08/22/2010) Total T3: 91 (08/22/2010) Yoana Salinas MD follow up: H is updated medication list for this problem includes: Metoprolol Succinate 50 Mg If45x-pxd (Metoprolol succinate) ..... 1 tab daily Aspirin 81 Mg Tabs (Aspirin) ..... 1 tablet by mouth daily Plavix 75 Mg Tabs (Clopidogrel bisulfate) ..... One tab. daily Ranexa 500 Mg Tb12 (Ranolazine) ..... One tab. twice daily for chronic angina Yoana Salinas MD follow up: H is updated medication list for this problem includes: Aspirin 81 Mg Tabs (Aspirin) ..... 1 tablet by mouth daily Glimepiride 1 Mg Tabs (Glimepiride) ..... 1 tab daily & #13;BP today: 96/65 Prior BP: 129/79 (08/21/2010) Labs Reviewed: H gBA1c: 8.2 (08/22/2010) Creat: 0.94 (08/22/2010) Yoana Salinas MD : H is updated medication list for this problem includes: Zetia 10 Mg Tabs (Ezetimibe) ..... 1 tablet by mouth daily Simvastatin 40 Mg Tabs (Simvastatin) ..... 1 tablet by mouth daily Niaspan 500 Mg Tbcr (Niacin (antihyperlipidemic)) ..... At bedtime Lovaza Caps (Fbmrb-4-lpzo ethyl esters caps) ..... Dispense as written BP today: 129/79 Prior BP: 119/75 (07/12/2010) C HOL: 218 (08/30/2009) LDL: 135 (08/30/2009) HDL: 45 (08/30/2009) T (08/30/2009) Yoana Salinas MD : H is updated medication list for this problem includes: Metoprolol Succinate 50 Mg Pe99x-gcm (Metoprolol succinate) ..... 1 tab daily Labs Reviewed: T SH: 0.07 (08/30/2009) Yoana Salinas MD : H is updated medication list for this problem includes: Zetia 10 Mg Tabs (Ezetimibe) ..... 1 tablet by mouth daily Simvastatin 40 Mg Tabs (Simvastatin) ..... 1 tablet by mouth daily Metoprolol Succinate 50 Mg Xs05y-for (Metoprolol succinate) ..... 1 tab daily Aspirin 81 Mg Tabs (Aspirin) ..... 1 tablet by mouth daily Plavix 75 Mg Tabs (Clopidogrel bisulfate) ..... One tab. daily Niaspan 500 Mg Tbcr (Niacin (antihyperlipidemic)) ..... At bedtime Ranexa 500 Mg Tb12 (Ranolazine) ..... One tab. twice daily for chronic angina Lovaza Caps (Ztnpm-8-rypv ethyl esters caps) ..... Dispense as written BP today: 129/79 Prior BP: 119/75 (07/12/2010) N uclear Stress Findings: 1. Regadenoson mediated myocardial perfusion study 2 . Normal left ventricular systolic function with a calculated ejection fraction of 66%. 3 . No obvious significant scintigraphic evidence of myocardial ischemia or scar. (08/08/2010) C ardiac Cath: Moderate coronary artery disease unchanged from his cardiac catheterization 2 years ago. Normal left ventricular systolic function. Continue aggressive risk factor modifications. [facility] (10/23/2009) C arotid Doppler/Duplex: normal: (08/28/2006) C HOL: 218 (08/30/2009) LDL: 135 (08/30/2009) HDL: 45 (08/30/2009) T (08/30/2009) B UN: 14.7 (08/30/2009) Creat: 1.04 (08/30/2009) Glucose: 131 (08/30/2009) N a+: 140 (08/30/2009) K+: 4.0 (08/30/2009) Cl: 105 (08/30/2009) TSH: 0.07 (08/30/2009) Yoana Salinas MD : H is updated medication list for this problem includes: Metoprolol Succinate 50 Mg [id number]-[id number] (Metoprolol succinate) ..... 1 tab daily Aspirin 81 Mg Tabs (Aspirin) ..... 1 tablet by mouth daily Plavix 75 Mg Tabs (Clopidogrel bisulfate) ..... One tab. daily Ranexa 500 Mg Tb12 (Ranolazine) ..... One tab. twice daily for chronic angina BP today: 129/79 Prior BP: 119/75 (07/12/2010) N uclear Stress Findings: 1. Regadenoson mediated myocardial perfusion study 2 . Normal left ventricular systolic function with a calculated ejection fraction of 66%. 3 . No obvious significant scintigraphic evidence of myocardial ischemia or scar. (08/08/2010) C ardiac Cath: Moderate coronary artery disease unchanged from his cardiac catheterization 2 years ago. Normal left ventricular systolic function. Continue aggressive risk factor modifications. [facility] (10/23/2009) C arotid Doppler/Duplex: normal: (08/28/2006) C HOL: 218 (08/30/2009) LDL: 135 (08/30/2009) HDL: 45 (08/30/2009) T (08/30/2009) B UN: 14.7 (08/30/2009) Creat: 1.04 (08/30/2009) Glucose: 131 (08/30/2009) N a+: 140 (08/30/2009) K+: 4.0 (08/30/2009) Cl: 105 (08/30/2009) TSH: 0.07 (08/30/2009) Echocardiogram: Normal left ventricular systolic function. Normal left ventricular size. Normal left ventricular wall thickness. Left ventricular ejection fraction is estimated at 65%. No significant valvular abnormalities. (08/08/2010) Yoana Salinas MD : H is updated medication list for this problem includes: Aspirin 81 Mg Tabs (Aspirin) ..... 1 tablet by mouth daily BP today: 129/79 Prior BP: 119/75 (07/12/2010) Labs Reviewed: C reat: 1.04 (08/30/2009) Yoana Salinas MD follow up: H is updated medication list for this problem includes: Zetia 10 Mg Tabs (Ezetimibe) ..... 1 tablet by mouth daily Simvastatin 40 Mg Tabs (Simvastatin) ..... 1 tablet by mouth daily Niaspan 500 Mg Tbcr (Niacin (antihyperlipidemic)) ..... At bedtime Lovaza Caps (Ycnjb-4-oqdb ethyl esters caps) ..... Dispense as written BP today: 119/75 Prior BP: 130/75 (05/15/2010) C HOL: 218 (08/30/2009) LDL: 135 (08/30/2009) HDL: 45 (08/30/2009) T (08/30/2009) Tirso Mccullough MD follow up Tirso Mccullough MD follow up:will check a stress test to assess if any progression of his cad. H is updated medication list for this problem includes: Zetia 10 Mg Tabs (Ezetimibe) ..... 1 tablet by mouth daily Simvastatin 40 Mg Tabs (Simvastatin) ..... 1 tablet by mouth daily Metoprolol Succinate 50 Mg [id number]-jcm (Metoprolol succinate) ..... 1 tab daily Aspirin 81 Mg Tabs (Aspirin) ..... 1 tablet by mouth daily Plavix 75 Mg Tabs (Clopidogrel bisulfate) ..... One tab. daily Niaspan 500 Mg Tbcr (Niacin (antihyperlipidemic)) ..... At bedtime Ranexa 500 Mg Tb12 (Ranolazine) ..... One tab. twice daily for chronic angina Lovaza Caps (Dpfpm-7-envt ethyl esters caps) ..... Dispense as written BP today: 119/75 Prior BP: 130/75 (05/15/2010) N uclear Stress Findings: No scintigraphic evidence of stress induced ischemia d r wall m otion abnormality. Left ventricular ejection fraction is 75% which is within normal limits. [facility] (03/31/2009) C ardiac Cath: Moderate coronary artery disease unchanged from his cardiac catheterization 2 years ago. Normal left ventricular systolic function. Continue aggressive risk factor modifications. [facility] (10/23/2009) C arotid Doppler/Duplex: normal: (08/28/2006) C HOL: 218 (08/30/2009) LDL: 135 (08/30/2009) HDL: 45 (08/30/2009) T (08/30/2009) B UN: 14.7 (08/30/2009) Creat: 1.04 (08/30/2009) Glucose: 131 (08/30/2009) N a+: 140 (08/30/2009) K+: 4.0 (08/30/2009) Cl: 105 (08/30/2009) TSH: 0.07 (08/30/2009) Tirso Mccullough MD follow up: H is updated medication list for this problem includes: Aspirin 81 Mg Tabs (Aspirin) ..... 1 tablet by mouth daily BP today: 119/75 Prior BP: 130/75 (05/15/2010) Labs Reviewed: C reat: 1.04 (08/30/2009) Tirso Mccullough MD routine : H is updated medication list for this problem includes: Aspirin 81 Mg Tabs (Aspirin) ..... 1 tablet by mouth daily BP today: 130/75 Prior BP: 141/85 (01/23/2010) Labs Reviewed: C reat: 1.04 (08/30/2009) Yoana Salinas MD routine : H is updated medication list for this problem includes: Metoprolol Succinate 50 Mg [id number]-jdn (Metoprolol succinate) ..... 1 tab daily Labs Reviewed: T SH: 0.07 (08/30/2009) Yoana Salinas MD routine : H is updated medication list for this problem includes: Zetia 10 Mg Tabs (Ezetimibe) ..... 1 tablet by mouth daily Simvastatin 40 Mg Tabs (Simvastatin) ..... 1 tablet by mouth daily Metoprolol Succinate 50 Mg Fn16l-fih (Metoprolol succinate) ..... 1 tab daily Aspirin 81 Mg Tabs (Aspirin) ..... 1 tablet by mouth daily Plavix 75 Mg Tabs (Clopidogrel bisulfate) ..... One tab. daily Niaspan 500 Mg Tbcr (Niacin (antihyperlipidemic)) ..... At bedtime Ranexa 500 Mg Tb12 (Ranolazine) ..... One tab. twice daily for chronic angina BP today: 130/75 Prior BP: 141/85 (01/23/2010) N uclear Stress Findings: No scintigraphic evidence of stress induced ischemia d r wall m otion abnormality. Left ventricular ejection fraction is 75% which is within normal limits. [facility] (03/31/2009) C ardiac Cath: Moderate coronary artery disease unchanged from his cardiac catheterization 2 years ago. Normal left ventricular systolic function. Continue aggressive risk factor modifications. [facility] (10/23/2009) C arotid Doppler/Duplex: normal: (08/28/2006) C HOL: 218 (08/30/2009) LDL: 135 (08/30/2009) HDL: 45 (08/30/2009) T (08/30/2009) B UN: 14.7 (08/30/2009) Creat: 1.04 (08/30/2009) Glucose: 131 (08/30/2009) N a+: 140 (08/30/2009) K+: 4.0 (08/30/2009) Cl: 105 (08/30/2009) TSH: 0.07 (08/30/2009) Yoana Salinas MD routine : H is updated medication list for this problem includes: Zetia 10 Mg Tabs (Ezetimibe) ..... 1 tablet by mouth daily Simvastatin 40 Mg Tabs (Simvastatin) ..... 1 tablet by mouth daily Metoprolol Succinate 50 Mg Go81j-dzu (Metoprolol succinate) ..... 1 tab daily Aspirin 81 Mg Tabs (Aspirin) ..... 1 tablet by mouth daily Plavix 75 Mg Tabs (Clopidogrel bisulfate) ..... One tab. daily Niaspan 500 Mg Tbcr (Niacin (antihyperlipidemic)) ..... At bedtime Ranexa 500 Mg Tb12 (Ranolazine) ..... One tab. twice daily for chronic angina BP today: 130/75 Prior BP: 141/85 (01/23/2010) N uclear Stress Findings: No scintigraphic evidence of stress induced ischemia d r wall m otion abnormality. Left ventricular ejection fraction is 75% which is within normal limits. [facility] (03/31/2009) C ardiac Cath: Moderate coronary artery disease unchanged from his cardiac catheterization 2 years ago. Normal left ventricular systolic function. Continue aggressive risk factor modifications. [facility] (10/23/2009) C arotid Doppler/Duplex: normal: (08/28/2006) C HOL: 218 (08/30/2009) LDL: 135 (08/30/2009) HDL: 45 (08/30/2009) T (08/30/2009) B UN: 14.7 (08/30/2009) Creat: 1.04 (08/30/2009) Glucose: 131 (08/30/2009) N a+: 140 (08/30/2009) K+: 4.0 (08/30/2009) Cl: 105 (08/30/2009) TSH: 0.07 (08/30/2009) Yoana Salinas MD routine : H is updated medication list for this problem includes: Metoprolol Succinate 50 Mg [id number]-vmu (Metoprolol succinate) ..... 1 tab daily Aspirin 81 Mg Tabs (Aspirin) ..... 1 tablet by mouth daily Plavix 75 Mg Tabs (Clopidogrel bisulfate) ..... One tab. daily Ranexa 500 Mg Tb12 (Ranolazine) ..... One tab. twice daily for chronic angina BP today: 130/75 Prior BP: 141/85 (01/23/2010) N uclear Stress Findings: No scintigraphic evidence of stress induced ischemia d r wall m otion abnormality. Left ventricular ejection fraction is 75% which is within normal limits. [facility] (03/31/2009) C ardiac Cath: Moderate coronary artery disease unchanged from his cardiac catheterization 2 years ago. Normal left ventricular systolic function. Continue aggressive risk factor modifications. [facility] (10/23/2009) C arotid Doppler/Duplex: normal: (08/28/2006) C HOL: 218 (08/30/2009) LDL: 135 (08/30/2009) HDL: 45 (08/30/2009) T (08/30/2009) B UN: 14.7 (08/30/2009) Creat: 1.04 (08/30/2009) Glucose: 131 (08/30/2009) N a+: 140 (08/30/2009) K+: 4.0 (08/30/2009) Cl: 105 (08/30/2009) TSH: 0.07 (08/30/2009) Echocardiogram: The left ventricular chamber size is normal. Wall thickness is increased consistent with mild c oncentric left ventricular hypertrophy. Normal left ventricular function. LV EF is estimated at 60% There is E: A r eversal of mitral inflow velocities consistent with diastolic dysfunction. T here is mitral annular calcification. The aortic valve appears mildly thickened. No clinically significant valvular a bnormalities. (09/08/2007) Yoana Salinas MD routine : H is updated medication list for this problem includes: Aspirin 81 Mg Tabs (Aspirin) ..... 1 tablet by mouth daily BP today: 130/75 Prior BP: 141/85 (01/23/2010) Labs Reviewed: C reat: 1.04 (08/30/2009) Yoana Salinas MD hosp f/u: H is updated medication list for this problem includes: Metoprolol Succinate 50 Mg Ad81r-yzn (Metoprolol succinate) ..... 1 tablet by mouth twice daily Aspirin 81 Mg Tabs (Aspirin) ..... 1 tablet by mouth daily Prior BP: 123/83 (11/21/2009) Labs Reviewed: C reat: 1.04 (08/30/2009) C hol: 218 (08/30/2009) HDL: 45 (08/30/2009) LDL: 135 (08/30/2009) T (08/30/2009) Yoana Salinas MD hosp f/u: H is updated medication list for this problem includes: Zetia 10 Mg Tabs (Ezetimibe) ..... 1 tablet by mouth daily Simvastatin 40 Mg Tabs (Simvastatin) ..... 1 tablet by mouth daily Niaspan 500 Mg Tbcr (Niacin (antihyperlipidemic)) ..... At bedtime BP today: / Prior BP: 123/83 (11/21/2009) C HOL: 218 (08/30/2009) LDL: 135 (08/30/2009) HDL: 45 (08/30/2009) T (08/30/2009) Yoana Salinas MD hosp f/u: H is updated medication list for this problem includes: Metoprolol Succinate 50 Mg Js61l-cug (Metoprolol succinate) ..... 1 tablet by mouth twice daily Labs Reviewed: T SH: 0.07 (08/30/2009) Yoana Salinas MD hosp f/u: H is updated medication list for this problem includes: Zetia 10 Mg Tabs (Ezetimibe) ..... 1 tablet by mouth daily Simvastatin 40 Mg Tabs (Simvastatin) ..... 1 tablet by mouth daily Metoprolol Succinate 50 Mg Kw62l-szg (Metoprolol succinate) ..... 1 tablet by mouth twice daily Aspirin 81 Mg Tabs (Aspirin) ..... 1 tablet by mouth daily Plavix 75 Mg Tabs (Clopidogrel bisulfate) ..... One tab. daily Niaspan 500 Mg Tbcr (Niacin (antihyperlipidemic)) ..... At bedtime Ranexa 500 Mg Tb12 (Ranolazine) ..... One tab. twice daily for chronic angina & #13;BP today: / Prior BP: 123/83 (11/21/2009) N uclear Stress Findings: No scintigraphic evidence of stress induced ischemia d r wall m otion abnormality. Left ventricular ejection fraction is 75% which is within normal limits. [facility] (03/31/2009) C ardiac Cath: Moderate coronary artery disease unchanged from his cardiac catheterization 2 years ago. Normal left ventricular systolic function. Continue aggressive risk factor modifications. [facility] (10/23/2009) C arotid Doppler/Duplex: normal: (08/28/2006) C HOL: 218 (08/30/2009) LDL: 135 (08/30/2009) HDL: 45 (08/30/2009) T (08/30/2009) B UN: 14.7 (08/30/2009) Creat: 1.04 (08/30/2009) Glucose: 131 (08/30/2009) N a+: 140 (08/30/2009) K+: 4.0 (08/30/2009) Cl: 105 (08/30/2009) TSH: 0.07 (08/30/2009) Yoana Salinas MD hosp f/u: H is updated medication list for this problem includes: Zetia 10 Mg Tabs (Ezetimibe) ..... 1 tablet by mouth daily Simvastatin 40 Mg Tabs (Simvastatin) ..... 1 tablet by mouth daily Metoprolol Succinate 50 Mg Rx48w-mgc (Metoprolol succinate) ..... 1 tablet by mouth twice daily Aspirin 81 Mg Tabs (Aspirin) ..... 1 tablet by mouth daily Plavix 75 Mg Tabs (Clopidogrel bisulfate) ..... One tab. daily Niaspan 500 Mg Tbcr (Niacin (antihyperlipidemic)) ..... At bedtime Ranexa 500 Mg Tb12 (Ranolazine) ..... One tab. twice daily for chronic angina & #13;BP today: / Prior BP: 123/83 (11/21/2009) N uclear Stress Findings: No scintigraphic evidence of stress induced ischemia d r wall m otion abnormality. Left ventricular ejection fraction is 75% which is within normal limits. [facility] (03/31/2009) C ardiac Cath: Moderate coronary artery disease unchanged from his cardiac catheterization 2 years ago. Normal left ventricular systolic function. Continue aggressive risk factor modifications. [facility] (10/23/2009) C arotid Doppler/Duplex: normal: (08/28/2006) C HOL: 218 (08/30/2009) LDL: 135 (08/30/2009) HDL: 45 (08/30/2009) T (08/30/2009) B UN: 14.7 (08/30/2009) Creat: 1.04 (08/30/2009) Glucose: 131 (08/30/2009) N a+: 140 (08/30/2009) K+: 4.0 (08/30/2009) Cl: 105 (08/30/2009) TSH: 0.07 (08/30/2009) Yoana Salinas MD hosp f/u: H is updated medication list for this problem includes: Metoprolol Succinate 50 Mg [id number]-[id number] (Metoprolol succinate) ..... 1 tablet by mouth twice daily Aspirin 81 Mg Tabs (Aspirin) ..... 1 tablet by mouth daily Plavix 75 Mg Tabs (Clopidogrel bisulfate) ..... One tab. daily Ranexa 500 Mg Tb12 (Ranolazine) ..... One tab. twice daily for chronic angina BP today: / Prior BP: 123/83 (11/21/2009) N uclear Stress Findings: No scintigraphic evidence of stress induced ischemia d r wall m otion abnormality. Left ventricular ejection fraction is 75% which is within normal limits. [facility] (03/31/2009) C ardiac Cath: Moderate coronary artery disease unchanged from his cardiac catheterization 2 years ago. Normal left ventricular systolic function. Continue aggressive risk factor modifications. [facility] (10/23/2009) C arotid Doppler/Duplex: normal: (08/28/2006) C HOL: 218 (08/30/2009) LDL: 135 (08/30/2009) HDL: 45 (08/30/2009) T (08/30/2009) B UN: 14.7 (08/30/2009) Creat: 1.04 (08/30/2009) Glucose: 131 (08/30/2009) N a+: 140 (08/30/2009) K+: 4.0 (08/30/2009) Cl: 105 (08/30/2009) TSH: 0.07 (08/30/2009) Echocardiogram: The left ventricular chamber size is normal. Wall thickness is increased consistent with mild c oncentric left ventricular hypertrophy. Normal left ventricular function. LV EF is estimated at 60% There is E: A r eversal of mitral inflow velocities consistent with diastolic dysfunction. T here is mitral annular calcification. The aortic valve appears mildly thickened. No clinically significant valvular a bnormalities. (09/08/2007) Yoana Salinas MD follow up: H is updated medication list for this problem includes: Metoprolol Succinate 50 Mg Su69q-lgh (Metoprolol succinate) ..... 1 tablet by mouth twice daily Labs Reviewed: T SH: 0.07 (08/30/2009) Yoana Salinas MD follow up: H is updated medication list for this problem includes: Zetia 10 Mg Tabs (Ezetimibe) ..... 1 tablet by mouth daily Simvastatin 40 Mg Tabs (Simvastatin) ..... 1 tablet by mouth daily Metoprolol Succinate 50 Mg St75g-cep (Metoprolol succinate) ..... 1 tablet by mouth twice daily Aspirin 81 Mg Tabs (Aspirin) ..... 1 tablet by mouth daily Plavix 75 Mg Tabs (Clopidogrel bisulfate) ..... One tab. daily Niaspan 500 Mg Tbcr (Niacin (antihyperlipidemic)) ..... 2 tablets at bedtime BP today: 123/83 Prior BP: 117/74 (10/10/2009) N uclear Stress Findings: No scintigraphic evidence of stress induced ischemia d r wall m otion abnormality. Left ventricular ejection fraction is 75% which is within normal limits. [facility] (03/31/2009) C ardiac Cath: Moderate coronary artery disease unchanged from his cardiac catheterization 2 years ago. Normal left ventricular systolic function. Continue aggressive risk factor modifications. [facility] (10/23/2009) C arotid Doppler/Duplex: normal: (08/28/2006) C HOL: 218 (08/30/2009) LDL: 135 (08/30/2009) HDL: 45 (08/30/2009) T (08/30/2009) B UN: 14.7 (08/30/2009) Creat: 1.04 (08/30/2009) Glucose: 131 (08/30/2009) N a+: 140 (08/30/2009) K+: 4.0 (08/30/2009) Cl: 105 (08/30/2009) TSH: 0.07 (08/30/2009) Yoana Salinas MD follow up: H is updated medication list for this problem includes: Zetia 10 Mg Tabs (Ezetimibe) ..... 1 tablet by mouth daily Simvastatin 40 Mg Tabs (Simvastatin) ..... 1 tablet by mouth daily Metoprolol Succinate 50 Mg An31w-eyh (Metoprolol succinate) ..... 1 tablet by mouth twice daily Aspirin 81 Mg Tabs (Aspirin) ..... 1 tablet by mouth daily Plavix 75 Mg Tabs (Clopidogrel bisulfate) ..... One tab. daily Niaspan 500 Mg Tbcr (Niacin (antihyperlipidemic)) ..... 2 tablets at bedtime BP today: 123/83 Prior BP: 117/74 (10/10/2009) N uclear Stress Findings: No scintigraphic evidence of stress induced ischemia d r wall m otion abnormality. Left ventricular ejection fraction is 75% which is within normal limits. [facility] (03/31/2009) C ardiac Cath: Moderate coronary artery disease unchanged from his cardiac catheterization 2 years ago. Normal left ventricular systolic function. Continue aggressive risk factor modifications. [facility] (10/23/2009) C arotid Doppler/Duplex: normal: (08/28/2006) C HOL: 218 (08/30/2009) LDL: 135 (08/30/2009) HDL: 45 (08/30/2009) T (08/30/2009) B UN: 14.7 (08/30/2009) Creat: 1.04 (08/30/2009) Glucose: 131 (08/30/2009) N a+: 140 (08/30/2009) K+: 4.0 (08/30/2009) Cl: 105 (08/30/2009) TSH: 0.07 (08/30/2009) Yoana Salinas MD follow up: H is updated medication list for this problem includes: Metoprolol Succinate 50 Mg Ao86x-jsw (Metoprolol succinate) ..... 1 tablet by mouth twice daily Aspirin 81 Mg Tabs (Aspirin) ..... 1 tablet by mouth daily Plavix 75 Mg Tabs (Clopidogrel bisulfate) ..... One tab. daily BP today: 123/83 Prior BP: 117/74 (10/10/2009) N uclear Stress Findings: No scintigraphic evidence of stress induced ischemia d r wall m otion abnormality. Left ventricular ejection fraction is 75% which is within normal limits. [facility] (03/31/2009) C ardiac Cath: Moderate coronary artery disease unchanged from his cardiac catheterization 2 years ago. Normal left ventricular systolic function. Continue aggressive risk factor modifications. [facility] (10/23/2009) Carotid Doppler/Duplex: normal: (08/28/2006) C HOL: 218 (08/30/2009) LDL: 135 (08/30/2009) HDL: 45 (08/30/2009) T (08/30/2009) B UN: 14.7 (08/30/2009) Creat: 1.04 (08/30/2009) Glucose: 131 (08/30/2009) N a+: 140 (08/30/2009) K+: 4.0 (08/30/2009) Cl: 105 (08/30/2009) TSH: 0.07 (08/30/2009) Echocardiogram: The left ventricular chamber size is normal. Wall thickness is increased consistent with mild c oncentric left ventricular hypertrophy. Normal left ventricular function. LV EF is estimated at 60% There is E: A r eversal of mitral inflow velocities consistent with diastolic dysfunction. T here is mitral annular calcification. The aortic valve appears mildly thickened. No clinically significant valvular a bnormalities. (09/08/2007) Yoana Salinas MD chest pain: H is updated medication list for this problem includes: Metoprolol Succinate 50 Mg Ee03h-zgu (Metoprolol succinate) ..... 1 tablet by mouth twice daily Aspirin 81 Mg Tabs (Aspirin) ..... 1 tablet by mouth daily BP today: 117/74 P rior BP: 114/71 (07/13/2009) Labs Reviewed: C reat: 0.73 (09/09/2007) C hol: 141 (09/09/2007) HDL: 39 (09/09/2007) LDL: 80 (09/09/2007) T (09/09/2007) Yoana Salinas MD chest pain: H is updated medication list for this problem includes: Zetia 10 Mg Tabs (Ezetimibe) ..... 1 tablet by mouth daily Simvastatin 40 Mg Tabs (Simvastatin) ..... 1 tablet by mouth daily BP today: 117/74 Prior BP: 114/71 (07/13/2009) C HOL: 141 (09/09/2007) LDL: 80 (09/09/2007) HDL: 39 (09/09/2007) T (09/09/2007) Yoana Salinas MD chest pain: H is updated medication list for this problem includes: Zetia 10 Mg Tabs (Ezetimibe) ..... 1 tablet by mouth daily Simvastatin 40 Mg Tabs (Simvastatin) ..... 1 tablet by mouth daily Metoprolol Succinate 50 Mg Zp37f-vza (Metoprolol succinate) ..... 1 tablet by mouth twice daily Aspirin 81 Mg Tabs (Aspirin) ..... 1 tablet by mouth daily Plavix 75 Mg Tabs (Clopidogrel bisulfate) ..... One tab. daily BP today: 117/74 Prior BP: 114/71 (07/13/2009) N uclear Stress Findings: No scintigraphic evidence of stress induced ischemia d r wall m otion abnormality. Left ventricular ejection fraction is 75% which is within normal limits. [facility] (03/31/2009) C ardiac Cath: Nonobstructive CAD although the anterior wall defct coulbe be responsible for the stress test abnormality. E levated LVEDP. (06/27/2006) C arotid Doppler/Duplex: normal: (08/28/2006) C HOL: 141 (09/09/2007) LDL: 80 (09/09/2007) HDL: 39 (09/09/2007) T (09/09/2007) B UN: 15 (09/09/2007) Creat: 0.73 (09/09/2007) Glucose: 112 (09/09/2007) N a+: 139 (09/09/2007) K+: 4.3 (09/09/2007) Cl: 104 (09/09/2007) Yoana Salinas MD chest pain: H is updated medication list for this problem includes: Zetia 10 Mg Tabs (Ezetimibe) ..... 1 tablet by mouth daily Simvastatin 40 Mg Tabs (Simvastatin) ..... 1 tablet by mouth daily Metoprolol Succinate 50 Mg Yq70o-qkj (Metoprolol succinate) ..... 1 tablet by mouth twice daily Aspirin 81 Mg Tabs (Aspirin) ..... 1 tablet by mouth daily Plavix 75 Mg Tabs (Clopidogrel bisulfate) ..... One tab. daily BP today: 117/74 Prior BP: 114/71 (07/13/2009) N uclear Stress Findings: No scintigraphic evidence of stress induced ischemia d r wall m otion abnormality. Left ventricular ejection fraction is 75% which is within normal limits. [facility] (03/31/2009) C ardiac Cath: Nonobstructive CAD although the anterior wall defct coulbe be responsible for the stress test abnormality. E levated LVEDP. (06/27/2006) C arotid Doppler/Duplex: normal: (08/28/2006) C HOL: 141 (09/09/2007) LDL: 80 (09/09/2007) HDL: 39 (09/09/2007) T (09/09/2007) B UN: 15 (09/09/2007) Creat: 0.73 (09/09/2007) Glucose: 112 (09/09/2007) N a+: 139 (09/09/2007) K+: 4.3 (09/09/2007) Cl: 104 (09/09/2007) Yoana Salinas MD chest pain: H is updated medication list for this problem includes: Metoprolol Succinate 50 Mg [id number] (Metoprolol succinate) ..... 1 tablet by mouth twice daily Aspirin 81 Mg Tabs (Aspirin) ..... 1 tablet by mouth daily Plavix 75 Mg Tabs (Clopidogrel bisulfate) ..... One tab. daily BP today: 117/74 Prior BP: 114/71 (07/13/2009) N uclear Stress Findings: No scintigraphic evidence of stress induced ischemia d r wall m otion abnormality. Left ventricular ejection fraction is 75% which is within normal limits. [facility] (03/31/2009) C ardiac Cath: Nonobstructive CAD although the anterior wall defct coulbe be responsible for the stress test abnormality. E levated LVEDP. (06/27/2006) C arotid Doppler/Duplex: normal: (08/28/2006) C HOL: 141 (09/09/2007) LDL: 80 (09/09/2007) HDL: 39 (09/09/2007) T (09/09/2007) B UN: 15 (09/09/2007) Creat: 0.73 (09/09/2007) Glucose: 112 (09/09/2007) N a+: 139 (09/09/2007) K+: 4.3 (09/09/2007) Cl: 104 (09/09/2007) Echocardiogram: The left ventricular chamber size is normal. Wall thickness is increased consistent with mild c oncentric left ventricular hypertrophy. Normal left ventricular function. LV EF is estimated at 60% There is E: A r eversal of mitral inflow velocities consistent with diastolic dysfunction. T here is mitral annular calcification. The aortic valve appears mildly thickened. No clinically significant valvular a bnormalities. (09/08/2007) Yoana Salinas MD f/u: H is updated medication list for this problem includes: Zetia 10 Mg Tabs (Ezetimibe) ..... 1 tablet by mouth daily Simvastatin 40 Mg Tabs (Simvastatin) ..... 1 tablet by mouth daily Metoprolol Succinate 50 Mg [id number] (Metoprolol succinate) ..... 1 tablet by mouth twice daily Aspirin 81 Mg Tabs (Aspirin) ..... 1 tablet by mouth daily Tirso Mccullough MD f/u: H is updated medication list for this problem includes: Metoprolol Succinate 50 Mg [id number] (Metoprolol succinate) ..... 1 tablet by mouth twice daily Aspirin 81 Mg Tabs (Aspirin) ..... 1 tablet by mouth daily Tirso Mccullough MD f/u Tirso Mccullough MD f/u: H is updated medication list for this problem includes: Zetia 10 Mg Tabs (Ezetimibe) ..... 1 tablet by mouth daily Simvastatin 40 Mg Tabs (Simvastatin) ..... 1 tablet by mouth daily Tirso Mccullough MD f/u: H is updated medication list for this problem includes: Metoprolol Succinate 50 Mg [id number] (Metoprolol succinate) ..... 1 tablet by mouth twice daily Aspirin 81 Mg Tabs (Aspirin) ..... 1 tablet by mouth daily Tirso Mccullough MD Hospital Follow-up: H is updated medication list for this problem includes: Zetia 10 Mg Tabs (Ezetimibe) ..... 1 tablet by mouth daily Simvastatin 40 Mg Tabs (Simvastatin) ..... 1 tablet by mouth daily BP today: 119/81 Prior BP: 131/86 (09/08/2007) C HOL: 141 (09/09/2007) LDL: 80 (09/09/2007) HDL: 39 (09/09/2007) T (09/09/2007) Tirso Mccullough MD Hospital Follow-up Tirso Mccullough MD Hospital Follow-up: H is updated medication list for this problem includes: Metoprolol Succinate 50 Mg [id number] (Metoprolol succinate) ..... 1 tablet by mouth twice daily Tirso Mccullough MD Hospital Follow-up: H is updated medication list for this problem includes: Zetia 10 Mg Tabs (Ezetimibe) ..... 1 tablet by mouth daily Simvastatin 40 Mg Tabs (Simvastatin) ..... 1 tablet by mouth daily Metoprolol Succinate 50 Mg [id number] (Metoprolol succinate) ..... 1 tablet by mouth twice daily Aspirin 81 Mg Tabs (Aspirin) ..... 1 tablet by mouth daily BP today: 119/81 Prior BP: 131/86 (09/08/2007) N uclear Stress Findings: Resting ECG revealed normal sinus rhythm with a rate of 59 beats per minute. Otherwise, normal ECG. Resting blood pressure 122/86 mmHg. Normal heart rate and blood pressure responses with Lexiscan infusion, having achieved 58% of target heart rate. N o chest pain or cardiac arrhythmias. A 0.3-0.4 horizontal ST-segment depression in the inferior lead and 0.4-mm upsloping in the lateral leads not diagnostic of ischemia. The test is considered to be negative by ECG criteria. May be correlated with Myoview result to follow up per radiology, this being a 2-part test needs to be read together. [facility] (03/31/2009) C ardiac Cath: Nonobstructive CAD although the anterior wall defct coulbe be responsible for the stress test abnormality. E levated LVEDP. (06/27/2006) C arotid Doppler/Duplex: normal: (08/28/2006) C HOL: 141 (09/09/2007) LDL: 80 (09/09/2007) HDL: 39 (09/09/2007) T (09/09/2007) B UN: 15 (09/09/2007) Creat: 0.73 (09/09/2007) Glucose: 112 (09/09/2007) N a+: 139 (09/09/2007) K+: 4.3 (09/09/2007) Cl: 104 (09/09/2007) Tirso Mccullough MD Hospital Follow-up: H is updated medication list for this problem includes: Metoprolol Succinate 50 Mg [id number] (Metoprolol succinate) ..... 1 tablet by mouth twice daily Aspirin 81 Mg Tabs (Aspirin) ..... 1 tablet by mouth daily BP today: 119/81 Prior BP: 131/86 (09/08/2007) N uclear Stress Findings: Resting ECG revealed normal sinus rhythm with a rate of 59 beats per minute. Otherwise, normal ECG. Resting blood pressure 122/86 mmHg. Normal heart rate and blood pressure responses with Lexiscan infusion, having achieved 58% of target heart rate. N o chest pain or cardiac arrhythmias. A 0.3-0.4 horizontal ST-segment depression in the inferior lead and 0.4-mm upsloping in the lateral leads not diagnostic of ischemia. The test is considered to be negative by ECG criteria. May be correlated with Myoview result to follow up per radiology, this being a 2-part test needs to be read together. [facility] (03/31/2009) C ardiac Cath: Nonobstructive CAD although the anterior wall defct coulbe be responsible for the stress test abnormality. E levated LVEDP. (06/27/2006) i am awaiting the nuclear portion of the test but he has had no further symptoms. Tirso Mccullough MD office visit:control led. H is updated medication list for this problem includes: Aspirin 325 Mg Tabs (Aspirin) ..... One tab daily Toprol Xl 25 Mg Tb24 (Metoprolol succinate) ..... One tab daily- instead of isosorbide Yoana Salinas MD office visit:may be low now with hyperthyroidism. check lipid panel and stop zetia nd zocor for now T he following medications were removed from the medication list: Zetia 10 Mg Tabs (Ezetimibe) ..... One tab. daily Simvastatin 40 Mg Tabs (Simvastatin) ..... One tab. daily Orders: L IPID PANEL (6090) C OMPREHENSIVE METABOLIC PANEL W/EGFR (57595) Yoana Salinas MD office visit:stable. no chest pains or shortness of breath. T he following medications were removed from the medication list: Zetia 10 Mg Tabs (Ezetimibe) ..... One tab. daily Simvastatin 40 Mg Tabs (Simvastatin) ..... One tab. daily Isosorbide Dinitrate 30 Mg Tabs (Isosorbide dinitrate) ..... Qd His updated medication list for this problem includes: Aspirin 325 Mg Tabs (Aspirin) ..... One tab daily Toprol Xl 25 Mg Tb24 (Metoprolol succinate) ..... One tab daily- instead of isosorbide Orders: C OMPREHENSIVE METABOLIC PANEL W/EGFR (99073) Yoana Salinas MD office visit:new dx. per dr. pink pt scheduled for radioactive iodine scan H is updated medication list for this problem includes: Toprol Xl 25 Mg Tb24 (Metoprolol succinate) ..... One tab daily- instead of isosorbide Yoana Salinas MD Date Name Complete Echo Complete Echo Complete Echo Complete Echo Complete Echo HEMOGLOBIN A1c LIPID PANEL CBC (INCLUDES DIFF/P LT) COMPREHENSIVE METABO LIC PANEL W/EGFR Complete Echo Carotid Duplex Bilat eral Stress Test - [place] Complete Echo COMPREHENSIVE METABO LIC PANEL W/EGFR LIPID PANEL HISTORY OF PROCEDURES Procedure Date Procedure Name Provider Procedure Notes S tatus Complex e/m visit add on Yoana Salinas MD completed EKG Yoana Salinas MD completed Complex e/m visit add on Yoana Salinas MD completed EKG Yoana Salinas MD completed EKG Yoana Salinas MD completed EKG Yoana Salinas MD completed EKG Yoana Salinas MD completed SNOMED-CT: 24838424 Physical Exam, Performed: Pulse Exam of Foot Yoana Salinas MD completed EKG Yoana Salinas MD completed SNOMED-CT: [id number] Current Medications Documented Yoana Salinas MD completed SNOMED-CT: [id number] Physical Exam, Performed: Pulse Exam of Foot Yoana Salinas MD completed SNOMED-CT: [id number] [id number] Current Medications Documented Yoana Salinas MD completed SNOMED-CT: [id number] Physical Exam, Performed: Pulse Exam of Foot Yoana Salinas MD completed EKG Yoana Salinas MD completed SNOMED-CT: [id number] Current Medications Documented Yoana Salinas MD completed EKG Yoana Salinas MD completed EKG Yoana Salinas MD completed EKG Yoana Salinas MD completed EKG Yoana Salinas MD completed
--- OUTSIDE RECORDS SUMMARY | 2024-04-15 09:52 | XMS_ITS | Clinical Summary ---
Author Organization [facility] al Address [address] [place] [address] Care Team Providers Care Medical Coding Auditor Name Role Phone Kade Pope MD Primary Care Provider [phone] Allergies Active Allergy Reactions Criticality Noted Date Comments Adhesive Rash Medium 05/13/2017 Latex Rash,Anaphylaxis High 05/13/2017 Medications OLANZapine (ZyPREXA) 5 mg tabletIndicati ons:Depression Treatment Adjunct Take 5 mg by mouth nightly. Active FLUoxetine (PROzac) 40 mg capsuleIndicat ions:depressio n Take 40 mg by mouth every morning. 2 01/10/20 18 Active acetaminophen (TYLENOL) 325 mg tablet Take 650 mg by mouth every 6 (six) hours as needed for pain. Active ezetimibe (ZETIA) 10 mg tablet daily 11/02/19 19 Active clopidogreL (PLAVIX) 75 mg tablet TAKE 1 TABLET BY MOUTH EVERY DAY 90 tablet 1 05/07/19 21 Active blood-glucose meter miscIndication s:Type 2 diabetes mellitus without complication, without long-term current use of insulin (HCC) ACCU CHEK GUIDE KIT TEST BLOOD SUGAR TWICE DAILY 1 each 12/26/19 22 Active atorvastatin (LIPITOR) 80 mg tablet 01/18/20 22 Active divalproex ER (DEPAKOTE ER) 500 mg 24 hr tablet TAKE 1 TABLET BY MOUTH EVERY DAY AT BEDTIME FOR 90 DAYS 12/13/19 22 Active finasteride (PROSCAR) 5 mg tabletIndicati ons:Urinary frequency TAKE 1 TABLET (5 MG TOTAL) BY MOUTH DAILY. 90 tablet 3 03/17/19 24 Active levothyroxine (SYNTHROID) 100 mcg tablet TAKE 1 TABLET BY MOUTH EVERY DAY 90 tablet 1 07/23/19 24 Active Accu-Chek Guide test strips strip USE TO TEST TWICE A DAY 100 strip 4 09/14/19 24 Active metFORMIN (GLUCOPHAGE) 500 mg tablet TAKE 1 TABLET BY MOUTH ONCE DAILY FOR 1 WEEK, THEN INCREASE TO 1 TABLET TWICE DAILY DIRECTED 180 tablet 2 12/17/[address] (PROTONIX) 40 mg EC tablet TAKE 1 TABLET BY MOUTH EVERY DAY 90 tablet 2 01/05/20 24 Active glimepiride (AMARYL) 1 mg tablet TAKE 1 TABLET BY MOUTH TWICE A DAY 180 tablet 1 01/05/20 24 Active busPIRone (BUSPAR) 5 mg tablet TAKE 1 TABLET BY MOUTH TWICE A DAY NEEDED FOR 30 DAYS 11/10/19 24 Active levothyroxine (SYNTHROID) 112 mcg tablet Take 1 tablet (112 mcg total) by mouth churn driller helper before breakfast 90 tablet 02/05/20 24 Active empagliflozin (Jardiance) 10 mg tablet TAKE 1 TABLET BY MOUTH EVERY DAY 90 tablet 3 03/22/19 25 Active sulfamethoxazo le-trimethopri m (BACTRIM DS) 800-160 mg per tablet Take 1 tablet by mouth 2 (two) times a day for 7 days 14 tablet 04/13/19 25 025 Active empagliflozin (Jardiance) 10 mg tablet TAKE 1 TABLET BY MOUTH EVERY DAY 90 tablet 2 06/16/19 24 025 Discontinued Active Problems Problem Noted Date Diagnosed Date Chest pain, unspecified 07/01/2022 07/02/19 23 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 Prostate cancer. 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 MRI w/ 2 lesions. UroNav () - benign prostate tissue; confirmMDx negative. On finasteride since 2018. LUTS - urinary frequency. PSA 3.13(6m) <- 2.91(1y) <- 2.21(1y) <- 1.73(2y). Assessment & Plan (07/30/2023 10:15 AM CDT): Stable. Assessment & Plan (01/10/2020 10:18 AM FLOWER STRIPPER): Followed by urology. Aortic valve sclerosis 12/08/2017 3 Dementia 11/12/2016 07/01/2022 Thyroid disorder 10/15/2016 Assessment & Plan (07/30/2023 10:15 AM CDT): Stable check TSH Assessment & Plan (07/13/2020 9:38 AM CDT): Stable, no s/s of thyroid Assessment & Plan (01/10/2020 10:18 AM FLOWER STRIPPER): Will check TSH no signs or symptoms of thyroid disease Hypertension 10/15/2016 Assessment & Plan (07/30/2023 10:15 AM CDT): BP at target. Continue medication for target directed therapy Assessment & Plan (07/13/2020 9:38 AM CDT): bp at target Assessment & Plan (01/10/2020 10:18 AM FLOWER STRIPPER): Blood pressure for me is 120/74 will continue present medication Diabetes mellitus 10/15/2016 Assessment & Plan (07/30/2023 10:15 AM CDT): A1c is doing well. Continue as before Assessment & Plan (01/10/2020 10:18 AM FLOWER STRIPPER): A1c of 6.8%. I am quite happy with this number for him. 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 Continues to see Psychiatry Assessment & Plan (01/10/2020 10:17 AM FLOWER STRIPPER): He is doing well at this time will continue current medications. Chronic coronary artery disease 10/15/2016 Assessment & Plan (07/30/2023 10:15 AM CDT): No current evidence of any significant angina or congestive heart failure Assessment & Plan (07/13/2020 9:39 AM CDT): Doing well, lipid reviewed Assessment & Plan (01/10/2020 10:17 AM FLOWER STRIPPER): Seemingly stable with no active coronary artery disease. Continue his beta- blockers, FÉLIX inhibitors, statins, and anti-platelet therapy. 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 with the extension educator Subarachnoid hemorrhage 09/10/2016 Sleep apnea, unspecified 08/01/2014 023 Generalized anxiety disorder 09/08/2007 Hypercholesterolemia 09/07/2007 07/01/2022 Encounters Date Type Department Care Team Description 04/12/2024 Orders Only [facility] [address] [place] [address] [place] [address] Kade Pope MD 03/08/2024 Orders Only [facility] [address] [place] [address] [place] [address] Kade Poep MD 02/05/2024 Telephone [facility] [address] [place] [address] [place] [address] Kade Pope MD Med change 02/02/2024 12:25 PM FLOWER STRIPPER Lab [facility] [address] [place] [phone] Type 2 diabetes mellitus without complication, without long-term current use of insulin (HCC); Peripheral circulatory disorder due to type 2 diabetes mellitus (HCC); Hypercholesterolemia; Prostate cancer (CMS/HCC) (HCC); Thyroid disorder; Primary hypertension; Anaclitic depression; Chronic coronary artery disease; Weight loss; Encounter for hepatitis C screening test for low risk patient 02/02/2024 9:45 AM FLOWER STRIPPER Office Visit [facility] [address] [facility] [address] [place] [address] Kade Pope MD Type 2 diabetes mellitus without complication, without long-term current use of insulin (HCC) (Primary Dx); Peripheral circulatory disorder due to type 2 diabetes mellitus (HCC); Hypercholesterolemia; Prostate cancer (CMS/HCC) (HCC); Thyroid disorder; Primary hypertension; Anaclitic depression; Chronic coronary artery disease; Weight loss; Encounter for hepatitis C screening test for low risk patient from Last 3 Months Immunizations Immunization Administration Dates Next Due Influenza, Quadrivalent, Spl it, Preservative Free, Intramuscular 12/05/2014 Influenza, Trivalent, Preservative Free, Intramu scular 12/06/2013,11/17/2012 Influenza, Unspecified 12/02/2023 Surgical History Surgery Date Site/Laterality Comments [place] CORONARY ARTERY BYPASS 1 CORONARY VENOUS GRAFT CABG - (Added by TW Conv) CARDIAC STENT PLACEMENT 02/11/2012 - 02/09/2013 stated it is in the [facility]G SURGERY Childhood multiple sx d/t malformation Medical History Medical History Date Comments Personal history of other sp ecified conditions History of urinary retention - (Added by TW Conv) Personal history of other di seases of the nervous system and sense organs History of cerebra l palsy - (Added by TW Conv) Personal history of other di seases of the circulatory system History of hypertension - (A dded by TW Conv) Personal history of other me ntal and behavioral disorders History of depression - (Add ed by TW Conv) Personal history of other di seases of male genital organs History of benign prostatic hyperplasia - (Added by TW Conv) Personal history of other sp ecified conditions History of insomnia - (Added by TW Conv) Diabetes mellitus (HCC) Hypertension Thyroid disease Anxiety Depression Coronary artery disease Fall resulting in cer ebral hemhorrage 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 Type 2 diabetes mellitus (HCC) Family History Medical History Relation Name Comments Heart disease Father Family history of cardiac disorder - (Added by TW Conv) Suicidality Mother Family history of suicide - (Added by TW Conv) Diabetes Other 1 Family history of diabetes mellitus - (Added by TW Conv) Cancer Other 2 Family history of malignant neoplasm - (Added by TW Conv) Relation Name Status Comments Father Mother Other 1 Other 2 Social History Tobacco Use Types Packs/Day Years Used Date Smoking Tobacco: Never Smokeless Tobacco: Never Tobacco Cessation:Counseling Given: Not Answered Alcohol Use Standard Drinks/Week Comments No 0 (1 standard drink = 0.6 oz pur e alcohol) Sex and Gender Information Value Date Recorded Sex Assigned at Not on file Legal Sex Male 2:01 AM FLOWER STRIPPER Gender Identity Male 01/15/2021 7:53 PM FLOWER STRIPPER Sexual Orientation Not on file Obstetrics History Last Filed Vital Signs Vital Sign Reading Time Taken Comments Blood Pressure 134/91 02/02/2024 9:21 AM FLOWER STRIPPER Pulse 84 02/02/2024 9:21 AM FLOWER STRIPPER Temperature 36.8 C (98.2 F) 02/19/2018 12:10 PM FLOWER STRIPPER Respiratory Rate 16 02/19/2018 1:20 PM FLOWER STRIPPER Oxygen Saturation 97% 07/13/2020 9:19 AM CDT Inhaled Oxygen Concentration - - Weight 63.5 kg (140 lb) 02/02/2024 9:21 AM FLOWER STRIPPER Height 170.2 cm (5' 7 ) 02/02/2024 9:21 AM FLOWER STRIPPER Body Mass Index 21.93 02/02/2024 9:21 AM FLOWER STRIPPER Plan of Treatment Health Maintenance Due Date Last Done Comments Depression Screening 1960 Dilated Eye Exam 1960 DTaP/Tdap/Td Vaccine (1 - Tdap) 12/20/1970 Hepatitis B Screening 12/20/1977 Regular Well Visit/Exam 18-64 12/20/1977 Pneumococcal vaccine <65 (1 of 2 - PCV) 12/20/1978 Zoster Vaccine (1 of 2) 12/20/2009 Foot Exam 01/21/2023 01/21/2022 Albumin Creatinine Ratio, Urine 07/29/2024 4, 07/23/2021 Lipid Panel 07/29/2024 07/30/2023, 01/10, 07/23/2021, Additional history exists Hemoglobin A1C 08/02/2024 02/02/2024, 07/11, 01/21/2023, Additional history exists eGFR 02/01/2025 02/02/2024, 07/11, 01/21/2023, Additional history exists Prostate Cancer Screening-PSA 02/01/2026, 08/11/2023, 01/21/2023, Additional history exists Colon Cancer Screening-Colonoscopy 10/23/20322022 Influenza Vaccine Completed 12/02/2023, , 12/06/2013, Additional history exists Hepatitis C Screening Completed 02/02/2024 Medical Devices Implanted Type Area Credit Negotiator Device Identifier Shelf Expiration Date Model / Serial / Lot Cardiac Stent Implanted:05/2010 (Quantity not on file) Coronary Artery Adly PROMUS / [id number] / [id number] Procedures Procedure Name Priority Date/Time Associated Diagnosis Comments SCAN - OTHER ORDERS 03/08/2024 2 :38 PM FLOWER STRIPPER EGFR Routine 02/02/2024 10:26 AM FLOWER STRIPPER Type 2 diabetes mellitus without complication, without long-term current use of insulin (HCC) Peripheral circulatory disorder due to type 2 diabetes mellitus (HCC) Hypercholesterolemia Prostate cancer (HCC) Thyroid disorder Primary hypertension Anaclitic depression Chronic coronary artery disease Weight loss Encounter for hepatitis C screening test for low risk patient DIFFERENTIAL AUTO Routine 02/02/2024 10: 26 AM FLOWER STRIPPER Type 2 diabetes mellitus without complication, without long-term current use of insulin (HCC) Peripheral circulatory disorder due to type 2 diabetes mellitus (HCC) Hypercholesterolemia Prostate cancer (HCC) Thyroid disorder Primary hypertension Anaclitic depression Chronic coronary artery disease Weight loss Encounter for hepatitis C screening test for low risk patient COMPREHENSIVE METABOLIC PANEL Routine 02/02/2024 10:26 AM FLOWER STRIPPER Type 2 diabetes mellitus without complication, without long-term current use of insulin (HCC) Peripheral circulatory disorder due to type 2 diabetes mellitus (HCC) Hypercholesterolemia Prostate cancer (CMS/HCC) (HCC) Thyroid disorder Primary hypertension Anaclitic depression Chronic coronary artery disease Weight loss Encounter for hepatitis C screening test for low risk patient CBC WITH AUTO DIFFERENTIAL Routine 02/02/2024 10:26 AM FLOWER STRIPPER Type 2 diabetes mellitus without complication, without long-term current use of insulin (HCC) Peripheral circulatory disorder due to type 2 diabetes mellitus (HCC) Hypercholesterolemia Prostate cancer (CMS/HCC) (HCC) Thyroid disorder Primary hypertension Anaclitic depression Chronic coronary artery disease Weight loss Encounter for hepatitis C screening test for low risk patient PSA SCREEN Routine 02/02/2024 10:26 AM FLOWER STRIPPER Type 2 diabetes mellitus without complication, without long-term current use of insulin (HCC) Peripheral circulatory disorder due to type 2 diabetes mellitus (HCC) Hypercholesterolemia Prostate cancer (CMS/HCC) (HCC) Thyroid disorder Primary hypertension Anaclitic depression Chronic coronary artery disease Weight loss Encounter for hepatitis C screening test for low risk patient URINALYSIS AND REFLEX TO MICROSCOPIC Routine 02/02/2024 10:26 AM FLOWER STRIPPER Type 2 diabetes mellitus without complication, without long-term current use of insulin (HCC) Peripheral circulatory disorder due to type 2 diabetes mellitus (HCC) Hypercholesterolemia Prostate cancer (CMS/HCC) (HCC) Thyroid disorder Primary hypertension Anaclitic depression Chronic coronary artery disease Weight loss Encounter for hepatitis C screening test for low risk patient TSH Routine 02/02/2024 10:26 AM FLOWER STRIPPER Type 2 diabetes mellitus without complication, without long-term current use of insulin (HCC) Peripheral circulatory disorder due to type 2 diabetes mellitus (HCC) Hypercholesterolemia Prostate cancer (CMS/HCC) (HCC) Thyroid disorder Primary hypertension Anaclitic depression Chronic coronary artery disease Weight loss Encounter for hepatitis C screening test for low risk patient VALPROIC ACID LEVEL, TOTAL Routine 02/02/2024 10:26 AM FLOWER STRIPPER Type 2 diabetes mellitus without complication, without long-term current use of insulin (HCC) Peripheral circulatory disorder due to type 2 diabetes mellitus (HCC) Hypercholesterolemia Prostate cancer (CMS/HCC) (HCC) Thyroid disorder Primary hypertension Anaclitic depression Chronic coronary artery disease Weight loss Encounter for hepatitis C screening test for low risk patient HEPATITIS C ANTIBODY Routine 02/02/2024 10:26 AM FLOWER STRIPPER Type 2 diabetes mellitus without complication, without long-term current use of insulin (HCC) Peripheral circulatory disorder due to type 2 diabetes mellitus (HCC) Hypercholesterolemia Prostate cancer (CMS/HCC) (HCC) Thyroid disorder Primary hypertension Anaclitic depression Chronic coronary artery disease Weight loss Encounter for hepatitis C screening test for low risk patient POCT HEMOGLOBIN A1C Routine 02/02/2024 9 :24 AM FLOWER STRIPPER Type 2 diabetes mellitus without complication, without long-term current use of insulin (HCC) ALBUMIN CREATININE RATIO, URINE Routine 07/30/2023 10:45 AM CDT Thyroid disorder Primary hypertension Type 2 diabetes mellitus without complication, without long-term current use of insulin (HCC) Anaclitic depression Chronic coronary artery disease Prostate cancer (CMS/HCC) (HCC) Encounter for lipid screening for cardiovascular disease POCT LIPID PANEL Routine 07/30/2023 10:0 7 AM CDT Encounter for lipid screening for cardiovascular disease from Last 3 Months or Most Recently Relevant to Health Maintenance Results * SCAN - OTHER ORDERS (03/08/2024 2:38 PM FLOWER STRIPPER) us Kade Pope MD Final Result * eGFR (02/02/2024 10:26 AM FLOWER STRIPPER) eGFR >90 >=60 mL/min/1. 73 m2 Comment: Interpretive Data Reference Interval Normal >/= 90 mL/min/1.73m2 Mildly decreased* 60 - 89 mL/min/1.73m2 Mildly to moderately decreased 45 - 59 mL/min/1.73m2 Moderately to severely decreased 30 - 44 mL/min/1.73m2 Severely decreased 15 - 29 mL/min/1.73m2 Kidney Failure < 15 mL/min/1.73m2 *Relative to young adult level Estimated glomerular filtration rate is determined by the 2020 CKD-EPI equation recommended by the National Kidney Foundation (A Unifying Approach to GFR Estimation: Recommendations of the NKF-ASK Task Force on Reassessing the Inclusion of Race in Diagnosing Kidney Disease, JASN 202). The CKD-EPI equation should not be used for patients with unstable renal function and has not been validated in children and those over 70. Current interpretive data was last reviewed 2020. Blood 02/02/2024 10:2 6 AM FLOWER STRIPPER 02/02/2024 11:04 AM FLOWER STRIPPER us Kade Pope MD LAB BLOOD ORDERABLES Final Re sult [facility] Department [place] [address] * (ABNORMAL) Differential, auto (02/02/2024 10:26 AM FLOWER STRIPPER) Neutrophil abs 5.1 1.5 - 6.5 K/cumm Imm gran abs 0.0 0.0 - 0.1 K/cumm [facility] Lymphocyte abs 2.4 0.8 - 3.3 K/cumm [facility] Monocyte abs 0.9(H) 0.2 - 0.8 [facility] Eosinophil abs 0.2 0.0 - 0.5 K/cumm [facility] Basophil abs 0.1 0.0 - 0.1 K/cumm [facility] Neutrophil pct 58.4 % [facility] Comment: Interpretive Data Percent cell count reference ranges are not reported, since discordance with absolute values may lead to misinterpretation of CBC data. Current Interpretive Data was last revised on 2017. Imm gran pct 0.5 % [facility] Comment: Interpretive Data Percent cell count reference ranges are not reported, since discordance with absolute values may lead to misinterpretation of CBC data. Current Interpretive Data was last revised on 2017. Lymphocyte pct 27.5 % [facility] Comment: Interpretive Data Percent cell count reference ranges are not reported, since discordance with absolute values may lead to misinterpretation of CBC data. Current Interpretive Data was last revised on 2017. Monocyte pct 10.3 % [facility] Comment: Interpretive Data Percent cell count reference ranges are not reported, since discordance with absolute values may lead to misinterpretation of CBC data. Current Interpretive Data was last revised on 2017. Eosinophil pct 2.4 % [facility] Comment: Interpretive Data Percent cell count reference ranges are not reported, since discordance with absolute values may lead to misinterpretation of CBC data. Current Interpretive Data was last revised on 2017. Basophil pct 0.9 % [facility] Comment: Interpretive Data Percent cell count reference ranges are not reported, since discordance with absolute values may lead to misinterpretation of CBC data. Current Interpretive Data was last revised on 2017. Blood 02/02/2024 10:2 6 AM FLOWER STRIPPER 02/02/2024 11:04 AM FLOWER STRIPPER us Kade Pope MD LAB BLOOD ORDERABLES Final Re sult Performing Organization Address [facility] de Phone Number [facility] [place] [address] * PSA screen (02/02/2024 10:26 AM FLOWER STRIPPER) PSA-Total 2.98 <=5.40 ng/mL Comment: Interpretive Data AGE SEX REFERENCE INTERVAL 0 minutes-150 years Female None 0 minutes-49 years Male None 50-59 years Male 0-3.90 60-69 years Male 0-5.40 70-79 years Male 0-6.20 80-150 years Male 0-6.20 The [employer] PSA Total assay procedure was used. Results from different manufacturers or methods may not be comparable. Serial testing should be performed using the same method. Current interpretive data last revised 21. Blood 02/02/2024 10:2 6 AM FLOWER STRIPPER 02/02/2024 11:04 AM FLOWER STRIPPER Kade Pope MD LAB BLOOD ORDERABLES Final Re sult Performing Organization Address [facility] de Phone Number [facility] [place] [address] * (ABNORMAL) Urinalysis reflex to microscopic (02/02/2024 10:26 AM FLOWER STRIPPER) Color, ur Straw Yellow Clarity, ur Clear Clear [facility] Specific gravity, ur 1.037(H) 1.003 - 1.030 [facility] pH, urine 5.5 [facility] Comment: Interpretive Data U rine pH is affected by diet, medications, systemic acid-base disturbances, and renal tubular function. pH may affect urinary stone formation. For example, urine pH below 6.0 may help reduce the tendency for calcium phosphate stones and pH greater than 6.0 may reduce the tendency for uric acid stone formation. Source: [facility] Current Interpretive Data was last revised on 2017 Protein, ur ql Negative Negative [facility] Glucose, ur ql 4+(A) Negative [facility] Ketones, ur Negative Negative [facility] Bilirubin, ur Negative Negative [facility] Blood, ur Negative Negative [facility] Urobilinogen, ur <2.0 <2.0 mg/dL [facility] Nitrite, ur Negative Negative [facility] Leukocyte esterase, ur Negative Negative [facility] UA reflex comment Reflex conditions for microscopic UA not met. [facility] Urine 02/02/2024 10:2 6 AM FLOWER STRIPPER 02/02/2024 10:54 AM FLOWER STRIPPER us Kade Pope MD LAB URINE ORDERABLES Final Re sult [facility] [place] [address] * CBC with auto differential (02/02/2024 10:26 AM FLOWER STRIPPER) WBC 8.7 3.8 - 9.9 K/cumm Hgb 16.1 13.0 - 17.5 g/dL [facility] Hct 48.9 38.9 - 50.3 % [facility] Plt 265 150 - 400 K/cumm [facility] MPV 10.3 9.1 - 12.3 fL [facility] RBC 5.24 4.30 - 5.80 M/cumm [facility] MCV 93.3 81.3 - 96.4 fL [facility] MCH 30.7 27.1 - 33.3 pg [facility] MCHC 32.9 32.3 - 35.7 g/dL [facility] RDW CV 13.5 11.1 - 14.9 % [facility] RDW SD 46.7 35.7 - 48.1 fL [facility] NRBC abs 0.00 0.00 - 0.01 K/cumm [facility] Blood 02/02/2024 10:2 6 AM FLOWER STRIPPER 02/02/2024 11:04 AM FLOWER STRIPPER us Kade Pope MD LAB BLOOD ORDERABLES Final Re sult Performing Organization Address [facility] Co de Phone Number [facility] [place] [place] [address] * Hepatitis C antibody Blood (02/02/2024 10:26 AM FLOWER STRIPPER) Hep C Ab Nonreactive Nonreactive Comment:Antibodies to HCV no t detected. Does NOT exclude the possibility of recent exposure to HCV. Current interpretive data was last revised on 21 Blood 02/02/2024 10:2 6 AM FLOWER STRIPPER 02/02/2024 11:03 AM FLOWER STRIPPER us Kade Pope MD LAB MICROBIOLOGY - GENERAL OR DERABLES Final Result Performing Organization Address [facility] Co de Phone Number [facility] Department [place] [employer] [place] [address] * (ABNORMAL) TSH (02/02/2024 10:26 AM FLOWER STRIPPER) Thyroid Stimulating Hormone 9.77(H) 0.30 - 4.20 mcIUnit/mL Blood 02/02/2024 10:2 6 AM FLOWER STRIPPER 02/02/2024 11:04 AM FLOWER STRIPPER us Kade Pope MD LAB BLOOD ORDERABLES Final Re sult Performing Organization Address [facility] [place] [address] * (ABNORMAL) Valproic acid level, total (02/02/2024 10:26 AM FLOWER STRIPPER) Valproic Acid 47.0(L) 50.0 - 100.0 mcg/mL Comment: Interpretive Data Therapeutic or toxic effects of anticonvulsant drugs may occur at different concentrations in different patients and the correlation between dose and clinical effect must be evaluated individually. Current interpretative data was last revised on 13. Blood 02/02/2024 10:2 6 AM FLOWER STRIPPER 02/02/2024 11:04 AM FLOWER STRIPPER us Kade Pope MD LAB BLOOD ORDERABLES Final Re sult [facility] Department [place] [address] * (ABNORMAL) Comprehensive metabolic panel (02/02/2024 10:26 AM FLOWER STRIPPER) Sodium 147(H) 135 - 145 mmol/L Potassium, pl 4.3 3.3 - 4.9 mmol/L [facility] Chloride 105 97 - 110 mmol/L [facility] CO2 33(H) 22 - 32 mmol/L [facility] Anion gap 9 2 - 15 mmol/L [facility] BUN 21 6 - 25 mg/dL [facility] Creatinine 0.85 0.80 - 1.30 mg/dL [facility] Glucose 165 70 - 199 mg/dL [facility] Comment: Interpretive Data Fasting glucose >/= 126 mg/dl is diagnostic for diabetes. Fasting is defined as no caloric intake for at least 8 hours. Fasting glucose between 100 mg/dl to 125 mg/dl is diagnostic of prediabetes. In a patient with classic symptoms of hyperglycemia or hyperglycemic crisis, a random glucose >/= 200 mg/dl is diagnostic for diabetes. In the absence of unequivocal hyperglycemia, results should be confirmed by repeat testing. The classification and Diagnosis of Diabetes Diabetes Care 2021; 46: S19-S40. Current interpretive data was last revised 2022. Calcium 9.8 8.5 - 10.3 mg/dL [facility] Bilirubin, total 0.3 0.1 - 1.2 mg/dL [facility] Protein, pl 7.7 6.5 - 8.5 g/dL [facility] Albumin 4.6 3.5 - 5.0 g/dL [facility] Alk phos 107 40 - 130 Units/L [facility] ALT 29 7 - 55 Units/L [facility] AST 25 10 - 50 Units/L [facility] Blood 02/02/2024 10:2 6 AM FLOWER STRIPPER 02/02/2024 11:04 AM FLOWER STRIPPER Kade Pope MD LAB BLOOD ORDERABLES Final Re sult Performing Organization Address [facility] Co de Phone Number [facility] [place] [address] * (ABNORMAL) POCT hemoglobin A1c (02/02/2024 9:24 AM FLOWER STRIPPER) Hemoglobin A1C, POC 7.3 4.0 - 5.6 % Blood 02/02/2024 9:24 AM FLOWER STRIPPER us Kade Pope MD POINT OF CARE TEST ORDERABLES Final Result * Albumin Creatinine Ratio, Urine (07/30/2023 10:45 AM CDT) Creatinine ur 23.1 Not Estab. mg/dL [facility] - 01 Microalbumin, ur <3.0 Not Estab. ug/mL [facility] - 01 Microalbumin/cre at ratio <13 0 - 29 mg/g creat [facility] - 01 Comment: Normal: 0 - 29 Moderately increased: 30 - 300 Severely increased: >300 Urine 07/30/2023 10:4 5 AM CDT 07/30/2023 Narrative [facility] - 07/31/2023 3:35 AM CDT Performed at: [facility] [id number] Stonemason: Nestor Herrera PhD, Phone: [phone] us Kade Pope MD LAB URINE ORDERABLES Final Re sult Performing Organization Address City/[facility]/ZIP Co de Phone Number [facility] - 01 * POCT lipid panel (07/30/2023 10:07 AM CDT) Cholesterol, POC 105 mg/dL HDL, POC 51 mg/dL Triglycerides, POC 165 mg/dL LDL Cholesterol POC 21 mg/dL Chol/HDL Ratio, POC 2.0 Non-HDL Cholesterol, POC 54 mg/dL Cholesterol Total, POC 105 mg/dL Capillary blood 07/30/2023 1 0:07 AM CDT Kade Pope MD POINT OF CARE TEST ORDERABLES Final Result from Last 3 Months or Most Recently Relevant to Health Maintenance Insurance [facility] MEDICARE SOLUTIONS MEDICARE ANTHEM ACCESS IDPA IDPA BLUE ACCESS OOS MEDICARE SOLUTIONS MEDICARE SOLUTIONS MEDICARE SOLUTIONS IDPA Advance Directives For more information, please contact: [phone] Documents on File Type Date Recorded Patient Route Vending Machine Servicer Expl anation ADVANCE DIRECTIVE 02/19/2018 8:56 AM Care Teams Medical Coding Auditor Relationship Specialty Start Date End Date Kade Pope MD [id number] [address] PCP - General 08/25/16
--- OUTSIDE RECORDS SUMMARY | 2024-04-15 09:52 | XMS_ITS | Referral Summary ---
Author Organization [facility], [facility] Address [address] [place] [address] Care Team Providers Care Ballistic Expert Name Role Phone Kade Pope MD Primary Care Provider Encounters Date Type Department Care Team Description 04/12/2024 Orders Only [facility] [address] [place] [address] Kade Pope MD 03/08/2024 Orders Only [facility] [address] [place] [address] Kade Pope MD 02/05/2024 Telephone [facility] [address] [place] [address] [place] [address] Kade Pope MD Med change 02/02/2024 12:25 PM LITHOGRAPH PRESS FEEDER Lab [facility] ([facility]) [address] [place] [id number] Type 2 diabetes mellitus without complication, without long-term current use of insulin (HCC); Peripheral circulatory disorder due to type 2 diabetes mellitus (HCC); Hypercholesterolemia; Prostate cancer (CMS/HCC) (HCC); Thyroid disorder; Primary hypertension; Anaclitic depression; Chronic coronary artery disease; Weight loss; Encounter for hepatitis C screening test for low risk patient 02/02/2024 9:45 AM LITHOGRAPH PRESS FEEDER Office Visit [facility] [address] [place] [address] Kade Pope MD Type 2 diabetes mellitus without complication, without long-term current use of insulin (HCC) (Primary Dx); Peripheral circulatory disorder due to type 2 diabetes mellitus (HCC); Hypercholesterolemia; Prostate cancer (CMS/HCC) (HCC); Thyroid disorder; Primary hypertension; Anaclitic depression; Chronic coronary artery disease; Weight loss; Encounter for hepatitis C screening test for low risk patient from Last 3 Months Allergies Active Allergy Reactions Criticality Noted Date [...] complication, without long-term current use of insulin ([facility]) ACCU CHEK GUIDE KIT TEST BLOOD SUGAR [...] 1 tablet (112 mcg total) by mouth film coater before breakfast 90 tablet 02/05/20 24 Active [...] 2 diabetes mellitus 07/01/2022 07/01/2022 Prostate cancer ([facility]) 01/27/2018 Overview (08/10/2023): 08/11/23: RP. 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 MRI w/ 2 lesions. UroNav () - benign prostate tissue; confirmMDx negative. On finasteride since 2018. LUTS - urinary frequency. PSA 3.13(6m) <- 2.91(1y) <- 2.21(1y) <- 1.73(2y). Assessment & Plan (07/30/2023 10:15 AM CDT): Stable. Assessment & Plan (01/10/2020 10:18 AM LITHOGRAPH PRESS FEEDER): Followed by urology. Aortic valve sclerosis 12/08/2017 3 Dementia 11/12/2016 07/01/2022 Thyroid disorder 10/15/2016 Assessment & Plan (07/30/2023 10:15 AM CDT): Stable check TSH Assessment & Plan (07/13/2020 9:38 AM CDT): Stable, no s/s of thyroid Assessment & Plan (01/10/2020 10:18 AM LITHOGRAPH PRESS FEEDER): Will check TSH no signs or symptoms of thyroid disease Hypertension 10/15/2016 Assessment & Plan (07/30/2023 10:15 AM CDT): BP at target. Continue medication for target directed therapy Assessment & Plan (07/13/2020 9:38 AM CDT): bp at target Assessment & Plan (01/10/2020 10:18 AM LITHOGRAPH PRESS FEEDER): Blood pressure for me is 120/74 will continue present medication Diabetes mellitus 10/15/2016 Assessment & Plan (07/30/2023 10:15 AM CDT): A1c is doing well. Continue as before Assessment & Plan (01/10/2020 10:18 AM LITHOGRAPH PRESS FEEDER): A1c of 6.8%. I am quite happy with this number for him. 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 Continues to see Psychiatry Assessment & Plan (01/10/2020 10:17 AM LITHOGRAPH PRESS FEEDER): He is doing well at this time will continue current medications. Chronic coronary artery disease 10/15/2016 Assessment & Plan (07/30/2023 10:15 AM CDT): No current evidence of any significant angina or congestive heart failure Assessment & Plan (07/13/2020 9:39 AM CDT): Doing well, lipid reviewed Assessment & Plan (01/10/2020 10:17 AM LITHOGRAPH PRESS FEEDER): Seemingly stable with no active coronary artery disease. Continue his beta- blockers, FÉLIX inhibitors, statins, and anti-platelet therapy. 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 with the refrigeration installer Subarachnoid hemorrhage 09/10/2016 Sleep apnea, unspecified 08/01/2014 023 Generalized anxiety disorder 09/08/2007 Hypercholesterolemia 09/07/2007 07/01/2022 Immunizations Immunization Administration Dates Next Due Influenza, Quadrivalent, Spl it, Preservative Free, Intramuscular 12/05/2014 Influenza, Trivalent, Preservative Free, Intramu scular 12/06/2013,11/17/2012 Influenza, Unspecified 12/02/2023 Social History Tobacco Use Types Packs/Day Years Used Date Smoking Tobacco: Never Smokeless Tobacco: Never Tobacco Cessation:Counseling Given: Not Answered Alcohol Use Standard Drinks/Week Comments No 0 (1 standard drink = 0.6 oz pur e alcohol) Sex and Gender Information Value Date Recorded Sex Assigned at Not on file Legal Sex Male 2:01 AM LITHOGRAPH PRESS FEEDER Gender Identity Male 01/15/2021 7:53 PM LITHOGRAPH PRESS FEEDER Sexual Orientation Not on file Last Filed Vital Signs Vital Sign Reading Time Taken Comments Blood Pressure 134/91 02/02/2024 9:21 AM LITHOGRAPH PRESS FEEDER Pulse 84 02/02/2024 9:21 AM LITHOGRAPH PRESS FEEDER Temperature 36.8 C (98.2 F) 02/19/2018 12:10 PM LITHOGRAPH PRESS FEEDER Respiratory Rate 16 02/19/2018 1:20 PM LITHOGRAPH PRESS FEEDER Oxygen Saturation 97% 07/13/2020 9:19 AM CDT Inhaled Oxygen Concentration - - Weight 63.5 kg (140 lb) 02/02/2024 9:21 AM LITHOGRAPH PRESS FEEDER Height 170.2 cm (5' 7 ) 02/02/2024 9:21 AM LITHOGRAPH PRESS FEEDER Body Mass Index 21.93 02/02/2024 9:21 AM LITHOGRAPH PRESS FEEDER Plan of Treatment Not on file Medical Devices Implanted Type Area Carpentry Specialist Device Identifier Shelf Expiration Date Model / Serial / Lot Cardiac Stent Implanted:05/2010 (Quantity not on file) Coronary Artery [employer] PROMUS / [id number] / [id number] Procedures Procedure Name Priority Date/Time Associated Diagnosis Comments SCAN - OTHER ORDERS 03/08/2024 2 :38 PM LITHOGRAPH PRESS FEEDER EGFR Routine 02/02/2024 10:26 AM LITHOGRAPH PRESS FEEDER Type 2 diabetes mellitus without complication, without long-term current use of insulin (HCC) Peripheral circulatory disorder due to type 2 diabetes mellitus (HCC) Hypercholesterolemia Prostate cancer (HCC) Thyroid disorder Primary hypertension Anaclitic depression Chronic coronary artery disease Weight loss Encounter for hepatitis C screening test for low risk patient DIFFERENTIAL AUTO Routine 02/02/2024 10: 26 AM LITHOGRAPH PRESS FEEDER Type 2 diabetes mellitus without complication, without long-term current use of insulin (HCC) Peripheral circulatory disorder due to type 2 diabetes mellitus (HCC) Hypercholesterolemia Prostate cancer (HCC) Thyroid disorder Primary hypertension Anaclitic depression Chronic coronary artery disease Weight loss Encounter for hepatitis C screening test for low risk patient COMPREHENSIVE METABOLIC PANEL Routine 02/02/2024 10:26 AM LITHOGRAPH PRESS FEEDER Type 2 diabetes mellitus without complication, without long-term current use of insulin (HCC) Peripheral circulatory disorder due to type 2 diabetes mellitus (HCC) Hypercholesterolemia Prostate cancer (CMS/HCC) (HCC) Thyroid disorder Primary hypertension Anaclitic depression Chronic coronary artery disease Weight loss Encounter for hepatitis C screening test for low risk patient CBC WITH AUTO DIFFERENTIAL Routine 02/02/2024 10:26 AM LITHOGRAPH PRESS FEEDER Type 2 diabetes mellitus without complication, without long-term current use of insulin (HCC) Peripheral circulatory disorder due to type 2 diabetes mellitus (HCC) Hypercholesterolemia Prostate cancer (CMS/HCC) (HCC) Thyroid disorder Primary hypertension Anaclitic depression Chronic coronary artery disease Weight loss Encounter for hepatitis C screening test for low risk patient PSA SCREEN Routine 02/02/2024 10:26 AM LITHOGRAPH PRESS FEEDER Type 2 diabetes mellitus without complication, without long-term current use of insulin (HCC) Peripheral circulatory disorder due to type 2 diabetes mellitus (HCC) Hypercholesterolemia Prostate cancer (CMS/HCC) (HCC) Thyroid disorder Primary hypertension Anaclitic depression Chronic coronary artery disease Weight loss Encounter for hepatitis C screening test for low risk patient URINALYSIS AND REFLEX TO MICROSCOPIC Routine 02/02/2024 10:26 AM LITHOGRAPH PRESS FEEDER Type 2 diabetes mellitus without complication, without long-term current use of insulin (HCC) Peripheral circulatory disorder due to type 2 diabetes mellitus (HCC) Hypercholesterolemia Prostate cancer (CMS/HCC) (HCC) Thyroid disorder Primary hypertension Anaclitic depression Chronic coronary artery disease Weight loss Encounter for hepatitis C screening test for low risk patient TSH Routine 02/02/2024 10:26 AM LITHOGRAPH PRESS FEEDER Type 2 diabetes mellitus without complication, without long-term current use of insulin (HCC) Peripheral circulatory disorder due to type 2 diabetes mellitus (HCC) Hypercholesterolemia Prostate cancer (CMS/HCC) (HCC) Thyroid disorder Primary hypertension Anaclitic depression Chronic coronary artery disease Weight loss Encounter for hepatitis C screening test for low risk patient VALPROIC ACID LEVEL, TOTAL Routine 02/02/2024 10:26 AM LITHOGRAPH PRESS FEEDER Type 2 diabetes mellitus without complication, without long-term current use of insulin (HCC) Peripheral circulatory disorder due to type 2 diabetes mellitus (HCC) Hypercholesterolemia Prostate cancer (CMS/HCC) (HCC) Thyroid disorder Primary hypertension Anaclitic depression Chronic coronary artery disease Weight loss Encounter for hepatitis C screening test for low risk patient HEPATITIS C ANTIBODY Routine 02/02/2024 10:26 AM LITHOGRAPH PRESS FEEDER Type 2 diabetes mellitus without complication, without long-term current use of insulin (HCC) Peripheral circulatory disorder due to type 2 diabetes mellitus (HCC) Hypercholesterolemia Prostate cancer (CMS/HCC) (HCC) Thyroid disorder Primary hypertension Anaclitic depression Chronic coronary artery disease Weight loss Encounter for hepatitis C screening test for low risk patient POCT HEMOGLOBIN A1C Routine 02/02/2024 9 :24 AM LITHOGRAPH PRESS FEEDER Type 2 diabetes mellitus without complication, without [...] SCAN - OTHER ORDERS (03/08/2024 2:38 PM LITHOGRAPH PRESS FEEDER) us Kade Pope MD Final Result * eGFR (02/02/2024 10:26 AM LITHOGRAPH PRESS FEEDER) eGFR >90 >=60 mL/min/1. 73 m2 Comment: [...] reviewed 2020. Blood 02/02/2024 10:2 6 AM LITHOGRAPH PRESS FEEDER 02/02/2024 11:04 AM LITHOGRAPH PRESS FEEDER us Kade Pope MD LAB BLOOD ORDERABLES Final Re sult [facility] Department [place] [address] * (ABNORMAL) Differential, auto (02/02/2024 10:26 AM LITHOGRAPH PRESS FEEDER) Neutrophil abs 5.1 1.5 - 6.5 K/cumm Imm gran abs 0.0 0.0 - 0.1 K/cumm [facility] Lymphocyte abs 2.4 0.8 - 3.3 K/cumm [facility] Monocyte abs 0.9(H) 0.2 - 0.8 K/cumm [facility] Eosinophil abs 0.2 0.0 - 0.5 K/cumm [facility] Basophil abs 0.1 0.0 - 0.1 K/cumm [facility] Neutrophil pct 58.4 % [facility] Comment: Interpretive Data Percent cell count reference ranges are not reported, since discordance with absolute values may lead to misinterpretation of CBC data. Current Interpretive Data was last revised on 2017. Imm gran pct 0.5 % [facility] Comment: Interpretive Data Percent cell count reference ranges are not reported, since discordance with absolute values may lead to misinterpretation of CBC data. Current Interpretive Data was last revised on 2017. Lymphocyte pct 27.5 % [facility] Comment: Interpretive Data Percent cell count reference ranges are not reported, since discordance with absolute values may lead to misinterpretation of CBC data. Current Interpretive Data was last revised on 2017. Monocyte pct 10.3 % [facility] Comment: Interpretive Data Percent cell count reference ranges are not reported, since discordance with absolute values may lead to misinterpretation of CBC data. Current Interpretive Data was last revised on 2017. Eosinophil pct 2.4 % [facility] Comment: Interpretive Data Percent cell count reference ranges are not reported, since discordance with absolute values may lead to misinterpretation of CBC data. Current Interpretive Data was last revised on 2017. Basophil pct 0.9 % [facility] Comment: Interpretive Data Percent cell count reference ranges are not reported, since discordance with absolute values may lead to misinterpretation of CBC data. Current Interpretive Data was last revised on 2017. Blood 02/02/2024 10:2 6 AM LITHOGRAPH PRESS FEEDER 02/02/2024 11:04 AM LITHOGRAPH PRESS FEEDER us Kade Pope MD LAB BLOOD ORDERABLES Final Re sult [facility] Department [place] [address] * PSA screen (02/02/2024 10:26 AM LITHOGRAPH PRESS FEEDER) PSA-Total 2.98 <=5.40 ng/mL Comment: Interpretive Data [...] revised 21. Blood 02/02/2024 10:2 6 AM LITHOGRAPH PRESS FEEDER 02/02/2024 11:04 AM LITHOGRAPH PRESS FEEDER us Kade Pope MD LAB BLOOD ORDERABLES Final Re sult [facility] Department [place] [address] * (ABNORMAL) Urinalysis reflex to microscopic (02/02/2024 10:26 AM LITHOGRAPH PRESS FEEDER) Color, ur Straw Yellow Clarity, ur Clear Clear [facility] Specific gravity, ur 1.037(H) 1.003 - 1.030 [facility] pH, urine 5.5 [facility] Comment: Interpretive Data U rine pH is affected by diet, medications, systemic acid-base disturbances, and renal tubular function. pH may affect urinary stone formation. For example, urine pH below 6.0 may help reduce the tendency for calcium phosphate stones and pH greater than 6.0 may reduce the tendency for uric acid stone formation. Source: [place] Current Interpretive Data was last revised on 2017 Protein, ur ql Negative Negative [facility] Glucose, ur ql 4+(A) Negative [facility] Ketones, ur Negative Negative [facility] Bilirubin, ur Negative Negative [facility] Blood, ur Negative Negative [facility] Urobilinogen, ur <2.0 <2.0 mg/dL [facility] Nitrite, ur Negative Negative [facility] Leukocyte esterase, ur Negative Negative [facility] UA reflex comment Reflex conditions for microscopic UA not met. [facility] Urine 02/02/2024 10:2 6 AM LITHOGRAPH PRESS FEEDER 02/02/2024 10:54 AM LITHOGRAPH PRESS FEEDER Kade Pope MD LAB URINE ORDERABLES Final Re sult Performing Organization Address [facility] Co de Phone Number [facility] [place] [address] * CBC with auto differential (02/02/2024 10:26 AM LITHOGRAPH PRESS FEEDER) WBC 8.7 3.8 - 9.9 K/cumm Hgb 16.1 13.0 - 17.5 g/dL [facility] Hct 48.9 38.9 - 50.3 % [facility] Plt 265 150 - 400 K/cumm [facility] MPV 10.3 9.1 - 12.3 fL [facility] RBC 5.24 4.30 - 5.80 M/cumm [facility] MCV 93.3 81.3 - 96.4 fL [facility] MCH 30.7 27.1 - 33.3 pg [facility] MCHC 32.9 32.3 - 35.7 g/dL [facility] RDW CV 13.5 11.1 - 14.9 % [facility] RDW SD 46.7 35.7 - 48.1 fL [facility] NRBC abs 0.00 0.00 - 0.01 K/cumm [facility] Blood 02/02/2024 10:2 6 AM LITHOGRAPH PRESS FEEDER 02/02/2024 11:04 AM LITHOGRAPH PRESS FEEDER us Kade Pope MD LAB BLOOD ORDERABLES Final Re sult Performing Organization Address [facility]/ZIP Co de Phone Number [facility] Department [place] [address] * Hepatitis C antibody Blood (02/02/2024 10:26 AM LITHOGRAPH PRESS FEEDER) Hep C Ab Nonreactive Nonreactive Comment:Antibodies to HCV no t detected. Does NOT exclude the possibility of recent exposure to HCV. Current interpretive data was last revised on 21 Blood 02/02/2024 10:2 6 AM LITHOGRAPH PRESS FEEDER 02/02/2024 11:03 AM LITHOGRAPH PRESS FEEDER us Kade Pope MD LAB MICROBIOLOGY - GENERAL OR DERABLES Final Result Performing Organization Address [facility] de Phone Number [facility] Department [place] [address] * (ABNORMAL) TSH (02/02/2024 10:26 AM LITHOGRAPH PRESS FEEDER) Pathologist [facility] Thyroid Stimulating Hormone 9.77(H) 0.30 - 4.20 mcIUnit/mL Blood 02/02/2024 10:2 6 AM LITHOGRAPH PRESS FEEDER 02/02/2024 11:04 AM LITHOGRAPH PRESS FEEDER us Kade Pope MD LAB BLOOD ORDERABLES Final Re sult Performing Organization Address [facility] Phone Number [facility] Department [place] [address] * (ABNORMAL) Valproic acid level, total (02/02/2024 10:26 AM LITHOGRAPH PRESS FEEDER) Pathologist [facility] Valproic Acid 47.0(L) 50.0 - 100.0 mcg/mL Comment: Interpretive Data Therapeutic or toxic effects of anticonvulsant drugs may occur at different concentrations in different patients and the correlation between dose and clinical effect must be evaluated individually. Current interpretative data was last revised on 13. Blood 02/02/2024 10:2 6 AM LITHOGRAPH PRESS FEEDER 02/02/2024 11:04 AM LITHOGRAPH PRESS FEEDER us Kade Pope MD LAB BLOOD ORDERABLES Final Re sult Performing Organization Address [facility]/ZIP Co de Phone Number [facility] Department [place] [address] * (ABNORMAL) Comprehensive metabolic panel (02/02/2024 10:26 AM LITHOGRAPH PRESS FEEDER) Sodium 147(H) 135 - 145 mmol/L Potassium, pl 4.3 3.3 - 4.9 mmol/L [facility] Chloride 105 97 - 110 mmol/L [facility] CO2 33(H) 22 - 32 mmol/L [facility] Anion gap 9 2 - 15 mmol/L [facility] BUN 21 6 - 25 mg/dL [facility] Creatinine 0.85 0.80 - 1.30 mg/dL [facility] Glucose 165 70 - 199 mg/dL [facility] Comment: Interpretive Data Fasting glucose >/= 126 [...] classification and Diagnosis of Diabetes Diabetes Care 202; 46: S19-S40. Current interpretive data was last revised 2022. Calcium 9.8 8.5 - 10.3 mg/dL [facility] Bilirubin, total 0.3 0.1 - 1.2 mg/dL [facility] Protein, pl 7.7 6.5 - 8.5 g/dL [facility] Albumin 4.6 3.5 - 5.0 g/dL [facility] Alk phos 107 40 - 130 Units/L [facility] ALT 29 7 - 55 Units/L [facility] AST 25 10 - 50 Units/L [facility] Blood 02/02/2024 10:2 6 AM LITHOGRAPH PRESS FEEDER 02/02/2024 11:04 AM LITHOGRAPH PRESS FEEDER us Kade Pope MD LAB BLOOD ORDERABLES Final Re sult [facility] Department [place] [address] * (ABNORMAL) POCT hemoglobin A1c (02/02/2024 9:24 AM LITHOGRAPH PRESS FEEDER) Hemoglobin A1C, POC 7.3 4.0 - 5.6 % Blood 02/02/2024 9:24 AM LITHOGRAPH PRESS FEEDER Kade Pope MD POINT OF CARE TEST [...] - 07/31/2023 3:35 AM CDT Performed at: [facility] [place] [id number] Feed Weigher: Nestor Herrera PhD, Phone: [phone] us Kade Pope MD LAB URINE ORDERABLES Final Re sult [facility] - 01 * POCT lipid panel (07/30/2023 10:07 AM CDT) Cholesterol, POC 105 mg/dL HDL, POC 51 mg/dL Triglycerides, POC 165 mg/dL LDL Cholesterol POC 21 mg/dL Chol/HDL Ratio, POC 2.0 Non-HDL Cholesterol, POC 54 mg/dL Cholesterol Total, POC 105 mg/dL Capillary blood 07/30/2023 1 0:07 AM CDT us Kade Pope MD POINT OF CARE TEST ORDERABLES Final Result from Last 3 Months or Most Recently Relevant to Health Maintenance Insurance [facility] MEDICARE SOLUTIONS MEDICARE PSYCHIATRIC IDPA IDPA BLUE ACCESS [place] MEDICARE SOLUTIONS MEDICARE [place] MEDICARE [place] [facility] Advance Directives For more information, please contact: [phone] Documents on File Type Date Recorded Patient [employer] 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
[2024-04-16 18:28] LABS: Red Blood Cell Folate 425 ng/mL RBC (>280)
== END 2024-04-15 09:08 | disposition home or self-care (01) ==
PROVIDERS: PCP Internal Medicine; Visit Provider Psychiatry & Neurology Neurology
DX: R41.3 Other amnesia (principal); R26.9 Unspecified abnormalities of gait and mobility; G80.9 Cerebral palsy, unspecified
CPT/HCPCS: 36415; 82607; 82747

== ENCOUNTER 2025-01-04 08:17 | Outpatient (CLI) | payer MEDICARE, MEDICAID, SELFPAY ==
--- OUTSIDE RECORDS SUMMARY | 2025-01-04 08:20 | XMS_ITS | Clinical Summary ---
Author Organization [facility] al Address [address] [place] [address] Care Team Providers Care Document Control Coordinator Name Role Phone Kade Pope MD Primary Care Provider Allergies Active Allergy Reactions Criticality Noted Date [...] (six) hours as needed for pain. Active clopidogreL (PLAVIX) 75 mg tablet TAKE [...] BEDTIME FOR 90 DAYS 12/13/19 22 Active busPIRone (BUSPAR) 5 mg tablet TAKE 1 TABLET BY MOUTH TWICE A DAY NEEDED FOR 30 DAYS 11/10/19 24 Active empagliflozin (Jardiance) 10 mg tablet TAKE 1 TABLET BY MOUTH EVERY DAY 90 tablet 3 03/22/19 25 Active finasteride (PROSCAR) 5 mg tabletIndicati ons:Urinary frequency Take 1 tablet (5 mg total) by mouth daily 90 tablet 3 05/06/19 25 Active FLUoxetine (PROzac) 20 mg capsule TAKE 1 CAPSULE BY MOUTH EVERY DAY IN THE MORNING ALONG WITH THE 40MG CAPSULE 07/14/19 25 Active glimepiride (AMARYL) 1 mg tablet TAKE 1 TABLET BY MOUTH TWICE A DAY 180 tablet 2 09/23/19 25 Active metFORMIN (GLUCOPHAGE) 500 mg tablet TAKE 1 TABLET BY MOUTH ONCE DAILY FOR 1 WEEK, THEN INCREASE TO 1 TABLET TWICE DAILY DIRECTED 180 tablet 2 10/29/[address] (PROTONIX) 40 mg EC tablet TAKE 1 TABLET BY MOUTH EVERY DAY 90 tablet 2 12/04/19 25 Active Accu-Chek Guide test strips strip USE TO TEST TWICE A DAY 100 strip 4 12/29/19 25 Active levothyroxine (SYNTHROID) 112 mcg tablet TAKE 1 TABLET BY MOUTH CORRESPONDENCE SECTION SUPERVISOR BEFORE BREAKFAST 90 tablet 1 01/04/20 25 Active Accu-Chek Guide test strips strip USE TO TEST TWICE A DAY 100 strip 4 05/27/19 25 025 Discontinued levothyroxine (SYNTHROID) 112 mcg tablet TAKE 1 TABLET BY MOUTH CORRESPONDENCE SECTION SUPERVISOR BEFORE BREAKFAST 90 tablet 1 07/24/19 25 025 Discontinued Active Problems Problem Noted Date Diagnosed Date Chest pain, unspecified 07/01/2022 07/02/19 23 Peripheral circulatory disor zen due to type 2 diabetes mellitus 07/01/2022 07/01/2022 Prostate cancer ([facility]) 01/27/2018 Overview (12/06/2024): 08/11/23: RP. Prostate cancer. Incidental cardiac cath tech s/p TURP (); path - [place] 3 + 3. MRI w/ 2 lesions. UroNav () - benign prostate tissue; confirmMDx negative. On finasteride since 2018. LUTS - urinary frequency. PVR 220 cc. PSA 3.13(6m) <- 2.91(1y) <- 1.73(2y). Hx cognitive impairment. Plan - 6m PSA. 05/17/24: RP. PSA 2.98(3m) <- 3.13(1y). Plan - . 11/29/24: RP. MRI prostate (06/24/24) - 22g; PI-RADS III (left, medial PZ); no LAD; no bone lesions. MRI prostate (11/29/24) - 19g; PI-RADs III (left, medial, TZ); no LAD; no bone lesions. PSA 4.7(13d) <- 2.9(10m) <- 4.0(1y). Assessment & Plan (07/30/2023 10:15 AM CDT): Stable. Assessment & Plan (01/10/2020 10:18 AM PLANT SENIOR MANAGER): Followed by urology. Aortic valve sclerosis 12/08/2017 3 Dementia 11/12/2016 07/01/2022 Thyroid disorder 10/15/2016 Assessment & Plan (07/26/2024 10:39 AM CDT): Check thyroid panel Assessment & Plan (07/30/2023 10:15 AM CDT): Stable check TSH Assessment & Plan (07/13/2020 9:38 AM CDT): Stable, no s/s of thyroid Assessment & Plan (01/10/2020 10:18 AM PLANT SENIOR MANAGER): Will check TSH no signs or symptoms of thyroid disease Hypertension 10/15/2016 Assessment & Plan (07/26/2024 10:39 AM CDT): BP at target. Assessment & Plan (07/30/2023 10:15 AM CDT): BP at target. Continue medication for target directed therapy Assessment & Plan (07/13/2020 9:38 AM CDT): bp at target Assessment & Plan (01/10/2020 10:18 AM PLANT SENIOR MANAGER): Blood pressure for me is 120/74 will continue present medication Diabetes mellitus 10/15/2016 Assessment & Plan (07/26/2024 10:39 AM CDT): A1c today is improved. Assessment & Plan (07/30/2023 10:15 AM CDT): A1c is doing well. Continue as before Assessment & Plan (01/10/2020 10:18 AM PLANT SENIOR MANAGER): A1c of 6.8%. I am quite happy with this number for him. Will continue current medications Anaclitic depression 10/15/2016 Assessment & Plan (07/26/2024 10:39 AM CDT): Check Depakote level in anticipation of visit with psychiatrist Assessment & Plan (07/30/2023 10:15 AM CDT): Stable. Continues to see Psychiatry Assessment & Plan (01/10/2020 10:17 AM PLANT SENIOR MANAGER): He is doing well at this time will continue current medications. Chronic coronary artery disease 10/15/2016 Assessment & Plan (07/26/2024 10:39 AM CDT): Stable. Assessment & Plan (07/30/2023 10:15 AM CDT): No current evidence of any significant angina or congestive heart failure Assessment & Plan (07/13/2020 9:39 AM CDT): Doing well, lipid reviewed Assessment & Plan (01/10/2020 10:17 AM PLANT SENIOR MANAGER): Seemingly stable with no active coronary artery disease. Continue his beta- blockers, FÉLIX inhibitors, statins, and anti-platelet therapy. 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 conductor Subarachnoid hemorrhage 09/10/2016 Sleep apnea, unspecified 08/01/2014 023 Generalized anxiety disorder 09/08/2007 Hypercholesterolemia 09/07/2007 07/01/2022 Encounters Date Type Department Care Team Description 12/14/2024 10:15 AM PLANT SENIOR MANAGER Clinical Support [facility] Medical Group [facility] Care at [address] [address] Need for vaccination (Primary Dx) 12/14/2024 9:45 AM PLANT SENIOR MANAGER Lab [address] [address] Prostate cancer (CMS/HCC) (HCC); Recurrent UTI 12/06/2024 8:00 AM CDT Telemedicine [facility] [address] [facility] [address] [place] [id number] Reynaldo Chavez MD Prostate cancer (CMS/HCC) (HCC) (Primary Dx); Recurrent UTI 11/29/2024 11:08 AM CDT - 11/29/2024 11:59 PM CDT Hospital Encounter [facility] [address] [place] [address] Prostate cancer (CMS/HCC) (HCC) Discharge Disposition: Discharge to home or self care 11/23/2024 12:20 PM CDT Lab [address] [address] Prostate cancer (CMS/HCC) (HCC) from Last 3 Months Immunizations Immunization Administration Dates Next Due Influenza, Quadrivalent, Spl it, Preservative Free, Intramuscular 12/05/2014 Influenza, Trivalent, Preser vative Free, Intramuscular 12/14/2024,12/06/2013,11/17/2012 Influenza, Unspecified 12/02/2023 Surgical History Surgery Date Site/Laterality Comments [place] CORONARY ARTERY BYPASS 1 CORONARY VENOUS GRAFT [...] - (Added by TW Conv) Diabetes mellitus Hypertension Thyroid disease Anxiety Depression Coronary artery disease Fall resulting in cer ebral hemhorrage 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 Type 2 diabetes mellitus Family History Medical History Relation Name Comments [...] on file Legal Sex Male 2:01 AM PLANT SENIOR MANAGER Gender Identity Male 01/15/2021 7:53 PM PLANT SENIOR MANAGER Sexual Orientation Not on file Last Filed Vital Signs Vital Sign Reading Time Taken Comments Blood Pressure 157/77 07/26/2024 9:48 AM CDT Pulse 74 07/26/2024 9:48 AM CDT Temperature 36.8 C (98.2 F) 02/19/2018 12:10 PM PLANT SENIOR MANAGER Respiratory Rate 16 02/19/2018 1:20 PM PLANT SENIOR MANAGER Oxygen Saturation 97% 07/13/2020 9:19 AM CDT Inhaled Oxygen Concentration - - Weight 60.8 kg (134 lb) 07/26/2024 9:48 AM CDT Height 170.2 cm (5' 7) 07/26/2024 9:48 AM CDT Body Mass Index 20.99 07/26/2024 9:48 AM CDT Plan of Treatment Health Maintenance Due Date Last Done Comments Depression Screening 1960 Fall Risk Assessment 1960 Dilated Eye Exam 1959 DTaP/Tdap/Td Vaccine (1 - Tdap) 12/20/1970 Hepatitis B Screening 12/20/1977 Pneumococcal vaccine 65+ (1 of 2 - PCV) 12/20/1978 Zoster Vaccine (1 of 2) 12/20/2009 Foot Exam 01/21/2023 01/21/2022 Albumin Creatinine Ratio, Urine 07/29/2024 4, 07/23/2021 Lipid Panel 07/29/2024 07/30/2023, 01/10, 07/23/2021, Additional history exists Well Visit 65+ 12/20/2024 Hemoglobin A1C 01/25/2025 07/26/2024, 01/11, 07/30/2023, Additional history exists eGFR 07/26/2025 07/26/2024, 01/11, 07/30/2023, Additional history exists Prostate Cancer Screening-PSA 11/23/2026, 02/02/2024, 08/11/2023, Additional history exists Colon Cancer Screening-Colonoscopy 10/23/20322022 Hepatitis C Screening Completed 02/02/2024 Influenza Vaccine Completed 12/14/2024, , 12/05/2014, Additional history exists Medical Devices Implanted Type Area Counter Hop Device Identifier Shelf Expiration Date Model / Serial / Lot Cardiac Stent Implanted:05/2010 (Quantity not on file) Coronary Artery pSivida PROMSyllabuster / [id number] / [id number] Procedures Procedure Name Priority Date/Time Associated Diagnosis Comments URINE CULTURE Routine 12/14/2024 9:59 AM PLANT SENIOR MANAGER Prostate cancer (CMS/HCC) (HCC) Recurrent UTI MRI PELVIS PROSTATE W WO CONTRAST Schedule Routine, Read Routine (OP Routine) 11/29/2024 12:37 PM CDT Prostate cancer (CMS/HCC) (HCC) PSA DIAGNOSTIC Routine 11/23/2024 12:24 PM CDT Prostate cancer (CMS/HCC) (HCC) EGFR Routine 07/26/2024 10:56 AM CDT Primary hypertension POCT HEMOGLOBIN A1C Routine 07/26/2024 9:57 AM CDT Type 2 diabetes mellitus without complication, without long-term current use of insulin (HCC) HEPATITIS C ANTIBODY Routine 02/02/2024 10:26 AM PLANT SENIOR MANAGER Type 2 diabetes mellitus without complication, without long-term current use of insulin (HCC) Peripheral circulatory disorder due to type 2 diabetes mellitus (HCC) Hypercholesterolemia Prostate cancer (CMS/HCC) (HCC) Thyroid disorder Primary hypertension Anaclitic depression Chronic coronary artery disease Weight loss Encounter for hepatitis C screening test for low risk patient ALBUMIN CREATININE RATIO, URINE Routine 07/30/2023 10:45 [...] Recently Relevant to Health Maintenance Results * Urine culture Urine, clean voided (12/14/2024 9:59 AM PLANT SENIOR MANAGER) Report Final Report: Less than 100,000 colonies/mL (clinically insignificant growth based on current clinical standards) Comment:Testing performed by : [facility], [address] [facility] [place]., [address] Organism (CLINICALLY INSIGNIFICANT GROWTH JACOBO PAN Urine, clean voided 12/14/2024 9:59 AM PLANT SENIOR MANAGER 12/14/2024 6:47 PM PLANT SENIOR MANAGER Narrative JACOBO PAN - 12/15/2024 8:09 PM PLANT SENIOR MANAGER Testing performed by [facility] ([phone]) us Reynaldo Chavez MD LAB MICROBIOLOGY - [facility] AL ORDERABLES Final Result JACOBO PAN [address] [facility] Department of Laboratories [place], [place] [id number] * MRI Pelvis Prostate W WO Contrast (11/29/2024 12:37 PM CDT) Anatomical Region Laterality Modality Body N/A Magnetic Resonan ce 11/30/2024 1:18 PM CDT Impressions 11/30/2024 1:26 PM CDT 1. A lesion in the left medial peripheral zone at the mid gland is of intermediate suspicion for malignancy with an overall PI-RADS score of 3. Dictated by: Meghana Contreras M.D. The radiology attending physician has personally reviewed this study, and had reviewed and/or edited this written report and agrees with it. Electronically signed by: Poly Sotelo M.D. Narrative 11/30/2024 1:26 PM CDT EXAMINATION: MAGNETIC RESONANCE IMAGING OF THE PELVIS WITHOUT AND WITH CONTRAST HISTORY: Prostate cancer. Incidental prostate cancer status post TURP 06/2017 with pathology demonstrating [place] 3+3. MRI with 2 lesions. Unonav 02/2018 demonstrated benign prostatic tissue. On finasteride since 2018. Increasing PSA levels with most recent level of 4.77 ng/mL on 11/23/2024 increased from 2.98 on 02/02/2024. TECHNIQUE: MR imaging of the prostate gland was performed with a torso phased array coil prior to and following administration of intravenous contrast. Protocol: Prostate 3T Contrast: Dotarem (gadoterate) 12 mL COMPARISON: MRIs with most recent dated 06/25/2023 FINDINGS: Prostate volume: 19.3 cc The prostate transition zone is enlarged with benign prostatic hyperplasia. The prostate was assessed using the PI-RADS version 2.1 scoring system. The following lesions are of at least intermediate suspicion (PI-RADS 3 or greater): Lesion 1: Side: left Location: medial Zone: transition zone Craniocaudal: mid gland Queen images: series 6, image 40 Size: 0.5 mL; largest axial dimensions 1.6 x 0.6 cm Extraprostatic extension: - tumor contact length with prostate margin: 6 mm - margin bulge/irregularity: no - rectoprostatic angle obliteration: no - neurovascular bundle asymmetry: no - gross extraprostatic extension: no - overall EPE grade: 0 (no suspicion for pathologic EPE) T2WI score: 3 DWI score: 3 DCE: negative Overall PI-RADS v2.1 assessment: 3 Staging Information: No enlarged lymph nodes are identified. No suspicious osseous lesions are identified. Other findings: Circumferential bladder wall thickening, which likely relates to combination of underdistention and chronic outlet obstruction. Multilevel degenerative changes in the imaged spine. Left fat-containing indirect inguinal hernia. Defect from TURP procedure. Hemorrhagic/proteinaceous material is seen within the right seminal vesicle. Procedure Note Poly Sotelo MD - 11/30/2024 EXAMINATION: MAGNETIC RESONANCE IMAGING OF THE PELVIS WITHOUT AND WITH CONTRAST HISTORY: Prostate cancer. Incidental prostate cancer status post TURP 06/2017 with pathology demonstrating [place] 3+3. MRI with 2 lesions. Unonav 02/2018 demonstrated benign prostatic tissue. On finasteride since 2018. Increasing PSA levels with most recent level of 4.77 ng/mL on 11/23/2024 increased from 2.98 on 02/02/2024. TECHNIQUE: MR imaging of the prostate gland was performed with a torso phased array coil prior to and following administration of intravenous contrast. Protocol: Prostate 3T Contrast: Dotarem (gadoterate) 12 mL COMPARISON: MRIs with most recent dated 06/25/2023 FINDINGS: Prostate volume: 19.3 cc The prostate transition zone is enlarged with benign prostatic hyperplasia. The prostate was assessed using the PI-RADS version 2.1 scoring system. The following lesions are of at least intermediate suspicion (PI-RADS 3 or greater): Lesion 1: Side: left Location: medial Zone: transition zone Craniocaudal: mid gland Queen images: series 6, image 40 Size: 0.5 mL; largest axial dimensions 1.6 x 0.6 cm Extraprostatic extension: - tumor contact length with prostate margin: 6 mm - margin bulge/irregularity: no - rectoprostatic angle obliteration: no - neurovascular bundle asymmetry: no - gross extraprostatic extension: no - overall EPE grade: 0 (no suspicion for pathologic EPE) T2WI score: 3 DWI score: 3 DCE: negative Overall PI-RADS v2.1 assessment: 3 Staging Information: No enlarged lymph nodes are identified. No suspicious osseous lesions are identified. Other findings: Circumferential bladder wall thickening, which likely relates to combination of underdistention and chronic outlet obstruction. Multilevel degenerative changes in the imaged spine. Left fat-containing indirect inguinal hernia. Defect from TURP procedure. Hemorrhagic/proteinaceous material is seen within the right seminal vesicle. IMPRESSION: 1. A lesion in the left medial peripheral zone at the mid gland is of intermediate suspicion for malignancy with an overall PI-RADS score of 3. Dictated by: Meghana Contreras M.D. The radiology attending physician has personally reviewed this study, and had reviewed and/or edited this written report and agrees with it. Electronically signed by: Poly Sotelo M.D. Reynaldo Chavez MD IMG MRI PROCEDURES Final Result * PSA diagnostic (11/23/2024 12:24 PM CDT) PSA-Total 4.77 <=5.40 ng/mL Comment: Interpretive Data AGE SEX [...] Current interpretive data last revised 21. Blood 11/23/2024 12:2 4 PM CDT 11/23/2024 2:28 PM CDT Reynaldo Chavez MD LAB BLOOD ORDERABLES Fin al Result [facility] [address] [facility] Department [place] [address] * eGFR (07/26/2024 10:56 AM CDT) eGFR >90 >=60 mL/min/1. 73 m2 Comment: [...] of Race in Diagnosing Kidney Disease, JASN 2020). The CKD-EPI equation should not be used for patients with unstable renal function and has not been validated in children and those over 70. Current interpretive data was last reviewed 2020. Blood 07/26/2024 10:5 6 AM CDT 07/26/2024 5:05 PM CDT us Kade Pope MD LAB BLOOD ORDERABLES Final Re sult Performing Organization Address City/[facility]/ZIP Co de Phone Number [facility] Department [place] [address] * (ABNORMAL) POCT hemoglobin A1c (07/26/2024 9:57 AM CDT) Hemoglobin A1C, POC 7.0(A) 4.0 - 5.6 % Blood 07/26/2024 9:57 AM CDT us Kade Pope MD POINT OF CARE TEST ORDERABLES Final Result * Hepatitis C antibody Blood (02/02/2024 10:26 AM PLANT SENIOR MANAGER) Hep C Ab Nonreactive Nonreactive Comment:Antibodies to HCV no t detected. Does NOT exclude the possibility of recent exposure to HCV. Current interpretive data was last revised on 21 Blood 02/02/2024 10:2 6 AM PLANT SENIOR MANAGER 02/02/2024 11:03 AM PLANT SENIOR MANAGER us Kade Pope MD LAB MICROBIOLOGY - GENERAL OR DERABLES Final Result Performing Organization Address City/[facility]/ZIP Co de Phone Number [facility] Department [place] [address] * Albumin Creatinine Ratio, Urine (07/30/2023 10:45 [...] - 07/31/2023 3:35 AM CDT Performed at: [address] [id number] Chain Pegger: Nestor Herrera PhD, Phone: [phone] Kade Pope MD LAB URINE ORDERABLES Final Re sult [facility] * POCT lipid panel (07/30/2023 10:07 AM [...] Most Recently Relevant to Health Maintenance Insurance IDPA [facility] MEDICARE ADVANTAGE MEDICARE [facility] IDPA BLUE [facility] MEDICARE ADVANTAGE [facility] MEDICARE ADVANTAGE [facility] MEDICARE ADVANTAGE IDPA Advance Directives For more information, please contact: [phone] Documents on File Type Date Recorded 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
--- OUTSIDE RECORDS SUMMARY | 2025-01-04 08:20 | XMS_ITS | Encounter Summary ---
Author Organization [facility] Healthcare Address [address] [place] [address] Care Team Providers Care Phlebotomy Program Coordinator Name Role Phone Kade Pope MD Primary Care Provider [phone] Encounter Details Date Type Department Care Team (Late st Contact Info) Description 01/07/2020 Telephone [facility] Radiology [address] [place] [address] Michel Porras MD [address] [facility] [address] [address] Social History Tobacco Use Types Packs/Day Years Used Date Smoking Tobacco: Never Smokeless Tobacco: Never Alcohol Use Standard Drinks/Week Comments No 0 (1 standard drink = 0.6 oz pur e alcohol) Sex and Gender Information Value Date Recorded Sex Assigned at Not on file Legal Sex Male 2:01 AM PHARMACY INFORMATICS SPECIALIST Gender Identity Male 01/15/2021 7:53 PM PHARMACY INFORMATICS SPECIALIST Sexual Orientation Not on file documented as of this encounter Functional Status * BP Location Answer Date of Assessment Author Right arm 01/10/2020 9:53 AM PHARMACY INFORMATICS SPECIALIST Adrienne Lopez RMA * BP Location Answer Date of Assessment Author Right arm 01/10/2020 9:53 AM PHARMACY INFORMATICS SPECIALIST Adrienne Lopez RMA documented as of this encounter Plan of Treatment Not on file documented as of this encounter Visit Diagnoses Not on filedocumented in this encounter Care Teams Phlebotomy Program Coordinator Relationship Specialty Start Date End Date Kade Pope MD PCP - General 08/25/16 documented as of this encounter
[2025-01-04 09:22] LABS: Hemoglobin A1C 6.9 % (<5.7)
[2025-01-04 11:27] LABS: Vitamin B12 734.0 pg/mL (239-931)
[2025-01-07 10:08] LABS: ANA by IFA Rfx Titer/Pattern Positive (.)
[2025-01-07 12:08] LABS: Immunoglobulin A, Qn 163 mg/dL (61-437); Immunoglobulin G, Qn 899 mg/dL (603-1613); Immunoglobulin M, Qn 60 mg/dL (20-172)
[2025-01-10 14:08] LABS: Vit. B1, Whole Blood 143.2 nmol/L (66.5-200.0)
== END 2025-01-04 08:18 | disposition home or self-care (01) ==
PROVIDERS: PCP Internal Medicine; Visit Provider Psychiatry & Neurology Neurology
DX: G62.9 Polyneuropathy, unspecified (principal); E11.9 Type 2 diabetes mellitus without complications; R26.9 Unspecified abnormalities of gait and mobility; G80.9 Cerebral palsy, unspecified; R41.3 Other amnesia; G45.9 Transient cerebral ischemic attack, unspecified
CPT/HCPCS: 36415; 82607; 82746; 82784; 83036; 83090; 83921; 84207; 84425; 86038; 86334; 86430